=== PATIENT | male | born 1960 | race Caucasian/White ===

== ENCOUNTER → 2016-06-14 | Outpatient (CLI) | payer BC ==
[2016-06-14 14:59] LABS: CREATININE FOR GFR 1.38 MG/DL (0.70-1.30); GLOMERULAR FILTRATION RATE 56.3 (>56)
--- NOTE | 2016-06-14 17:15 | REP ---
CT ABDOMEN AND PELVIS WITH ORAL AND IV CONTRAST: TECHNIQUE: Axial contrast enhanced images from the lung bases to the pubic symphysis using 100 mL Isovue 370 intravenous contrast material with multiplanar reformations. Large calcified granuloma seen in the left lower lobe. The study is somewhat limited by patient motion. The liver, spleen, adrenals, pancreas and kidneys are grossly unremarkable. There is a small extrarenal pelvis bilaterally without overt hydronephrosis. There are mild atherosclerotic calcifications of the abdominal aorta without aneurysm. There is no adenopathy. There is no free air or free fluid. There is possible thickening of the cecum diffusely. The appendix is not inflamed. There is evidence of prior surgery in the anterior abdominal wall. Multiple metallic clips are present. There is no pelvic mass. The urinary bladder is mildly distended and grossly unremarkable. 3 mm calculus is seen in the lower pole of the right kidney. IMPRESSION: Possible diffuse thickening of the cecum. This could be inflammatory or neoplastic. Alternatively this could be a focal contraction of the colon. Further evaluation is necessary. The appendix is not inflamed. I see no adenopathy. There is no free air or free fluid. Intrarenal calculus right kidney lower pole, 3 mm in diameter. Signed by Vahid Sharma MD 06/14/2016 05:46 P
== END ==
LOC: M LAB 14:10
PROVIDERS: ATTEND Physician Assistant
DX: R10.9 Unspecified abdominal pain (principal); K57.32 Diverticulitis of large intestine without perforation or abscess without bleeding; N20.0 Calculus of kidney

== ENCOUNTER → 2016-07-08 | Outpatient (CLI) | payer BC ==
[~2016-07-08] VITALS: Ht 182.9 cm; Wt 101.6 kg
[~2016-07-08] MED LIST: AMLO5TAB2; GLYB5TA; HYDR25TA6; INVO300T; IRBE300T10; LIDOCAINE 2% INJ 100 MG/5 ML SDV (FOR ANES.) As Ordered ONE; METF850T; NS 1,000 ML IV ONE; OMEP40CA2; PROPOFOL 200 MG/20 ML VIAL As Ordered ONE
--- NOTE | 2016-07-08 09:57 | ROOR ---
Patient Name: Denny Tyson Procedure Date: 07/08/2016 9:26 AM Date of : 1960 Age: 56 Room: [facility] Gender: Male Note Status: Finalized Procedure: Colonoscopy Indications: Generalized abdominal pain Providers: Shahram Boykin Jr, MD Referring MD: Gian Staples NP Requesting Provider: Medicines: Propofol per Anesthesia Complications: No immediate complications. Procedure: Pre-Anesthesia Assessment: - Prior to the procedure, a History and Physical was performed, and patient medications and allergies were reviewed. The patient is competent. The risks and benefits of the procedure and the sedation options and risks were discussed with the patient. All questions were answered and informed consent was obtained. Patient identification and proposed procedure were verified by the physician and the nurse in the pre-procedure area and in the procedure room. Mental Status Examination: alert and oriented. Airway Examination: normal oropharyngeal airway and neck mobility. Respiratory Examination: clear to auscultation. CV Examination: normal. ASA Grade Assessment: II - A patient with mild systemic disease. After reviewing the risks and benefits, the patient was deemed in satisfactory condition to undergo the procedure. The anesthesia plan was to use moderate sedation / analgesia (conscious sedation). Immediately prior to administration of medications, the patient was re-assessed for adequacy to receive sedatives. The heart rate, respiratory rate, oxygen saturations, blood pressure, adequacy of pulmonary ventilation, and response to care were monitored throughout the procedure. The physical status of the patient was re-assessed after the procedure. The Colonoscope was introduced through the anus and advanced to the cecum, identified by appendiceal orifice and ileocecal valve. The colonoscopy was performed without difficulty. The patient tolerated the procedure well. The quality of the bowel preparation was adequate and good. Findings: The perianal and digital rectal examinations were normal. Pertinent negatives include normal sphincter tone, no palpable rectal lesions and no anal lesion or abnormality was detected. The rectum, cecum, appendiceal orifice, ileocecal valve and anastomosis appeared normal. Patchy mild inflammation characterized by erythema, friability and shallow ulcerations was found in the descending colon, in the transverse colon and in the ascending colon. Biopsies were taken with a cold forceps for histology. Impression: - The rectum, cecum, appendiceal orifice, ileocecal valve and colonic anastomosis are normal. - Patchy mild inflammation was found in the descending colon, in the transverse colon and in the ascending colon. Biopsied. Recommendation: - Discharge patient to home (ambulatory). - Return to my office in 2 weeks. Shahram Boykin MD Shahram Boykin Jr, MD 07/08/2016 9:57:23 AM This report has been signed electronically. Number of Addenda: 0 Note Initiated On: 07/08/2016 9:26 AM Estimated Blood Loss: Estimated blood loss: none.
[2016-07-08 10:15] VITALS: BP 159/87
== END | disposition home or self-care (01) ==
LOC: M OPP 08:37
PROVIDERS: ATTEND Surgery
DX: R10.84 Generalized abdominal pain (principal); K52.9 Noninfective gastroenteritis and colitis, unspecified; Z98.0 Intestinal bypass and anastomosis status; Z86.010 Personal history of colon polyps; I10 Essential (primary) hypertension; K57.92 Diverticulitis of intestine, part unspecified, without perforation or abscess without bleeding; R12 Heartburn; F41.9 Anxiety disorder, unspecified; F32.9 Major depressive disorder, single episode, unspecified; E11.40 Type 2 diabetes mellitus with diabetic neuropathy, unspecified; K21.9 Gastro-esophageal reflux disease without esophagitis; Z91.040 Latex allergy status; Z79.84 Long term (current) use of oral hypoglycemic drugs; Z79.899 Other long term (current) drug therapy; Z87.19 Personal history of other diseases of the digestive system

== ENCOUNTER → 2016-11-29 | Outpatient (CLI) | payer BC ==
[~2016-11-29] MED LIST changes: -LIDOCAINE 2% INJ 100 MG/5 ML SDV (FOR ANES.) As Ordered ONE; -METF850T; +METF850T4; -NS 1,000 ML IV ONE; -PROPOFOL 200 MG/20 ML VIAL As Ordered ONE
--- NOTE | 2016-11-30 07:35 | REP ---
Clinical: Pain. Technique: AP, lateral, bilateral oblique and sunrise views of the right knee. Findings: Cortical irregularity involving the femoral condyles as well as subtle increased sclerosis to the medial tibial plateau and joint space narrowing is appreciated. Lateral view demonstrates small suprapatellar effusion and bulky osteophyte/tendinous calcification along the inferior margin of the patella. No acute fracture dislocation. Impression: Early moderate arthritic changes to the knee. Signed by Luca Sewell MD 11/30/2016 07:26 A
== END ==
LOC: M ADAMS 11:25
PROVIDERS: ATTEND Physician Assistant
DX: M17.11 Unilateral primary osteoarthritis, right knee (principal)

== ENCOUNTER 2017-01-13 06:52 | Emergency (ER) | payer BC ==
[~2017-01-13] VITALS: Ht 182.9 cm; Wt 113.6 kg
[2017-01-13 07:42] LABS: BASO % 0.6 % (0.0-1.0); EOS # 0.2 10^3/uL (0.0-0.50); EOS % 2.7 % (0.0-3.0); IMMATURE GRANULOCYTE % 0.6 % (0-0); LYMPH # 1.2 10^3/uL (1.5-4.5); LYMPH % 17.2 % (24.0-44.0); MEAN CORPUSCULAR HEMOGLOBIN 30.7 pg (27.0-33.0); MEAN CORPUSCULAR VOLUME 90.3 fl (80.0-96.0); MONO # 0.5 10^3/uL (0.0-0.8); MONO % 6.7 % (0.0-5.0); NEUTROPHILS % 72.2 % (36.0-66.0); PLATELET COUNT, AUTOMATED 206 10^3/uL (150-450); RED CELL DISTRIBUTION WIDTH 13.5 % (11.5-14.5)
[2017-01-13] MEDS ORDERED: NS 500 ML IV ONE ×2 (07:45→08:30)
[2017-01-13 08:05] LABS: ANION GAP 8 MEQ/L (8-16); BLOOD UREA NITROGEN 23 MG/DL (7-18); CALCIUM LEVEL 8.3 MG/DL (8.5-10.1); CARBON DIOXIDE LEVEL 26 MEQ/L (21-32); CHLORIDE LEVEL 104 MEQ/L (98-107); CREATININE FOR GFR 1.18 MG/DL (0.70-1.30); FREE T4 1.08 NG/DL (0.76-1.46); GLOMERULAR FILTRATION RATE > 60.0 (>56); GLUCOSE, FASTING 183 MG/DL (70-105); POTASSIUM SERUM 3.8 MEQ/L (3.5-5.1); SODIUM LEVEL 138 MEQ/L (136-145)
[2017-01-13 09:39] LABS: FOLATE 11.8 NG/ML (>5.4); VITAMIN B12 LEVEL 761 PG/ML (247-911)
[2017-01-13 10:22] VITALS: BP 141/91
--- NOTE | 2017-01-14 09:10 | ECGEPIP ---
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
[2017-01-15 00:08] LABS: Lyme Disease IgG/IgM Antibodie <0.91 ISR (0.00-0.90); Lyme Disease IgM Ab Quantitati <0.80 index (0.00-0.79)
== END 2017-01-13 10:25 | disposition home or self-care (01) ==
LOC: M ED 06:52
DX: R53.1 Weakness (principal); R00.1 Bradycardia, unspecified; I45.10 Unspecified right bundle-branch block; E11.9 Type 2 diabetes mellitus without complications; I10 Essential (primary) hypertension; Z79.899 Other long term (current) drug therapy; Z79.84 Long term (current) use of oral hypoglycemic drugs; Z91.040 Latex allergy status

== ENCOUNTER 2017-01-30 19:46 | Emergency (ER) | payer OTHER, BC ==
[~2017-01-30] VITALS: Ht 182.9 cm; Wt 113.6 kg
[2017-01-30] MEDS ORDERED: GI COCKTAIL 50ML BTL(HYOSCYAMINE/MAALOX/LIDOCAINE VISCOUS)(1:3:1) PO ONE (20:15)
[2017-01-30] MEDS ORDERED: ASPIRIN 81 MG CHEW TABLET PO ONE (20:15)
[2017-01-30 20:50] LABS: BASO % 0.5 % (0.0-1.0); EOS # 0.2 10^3/uL (0.0-0.50); EOS % 2.7 % (0.0-3.0); IMMATURE GRANULOCYTE % 0.3 % (0-0); LYMPH # 1.8 10^3/uL (1.5-4.5); MEAN CORPUSCULAR HEMOGLOBIN 30.2 pg (27.0-33.0); MEAN CORPUSCULAR HGB CONC 33.8 g/dl (32.0-36.5); MEAN CORPUSCULAR VOLUME 89.5 fl (80.0-96.0); MONO # 0.6 10^3/uL (0.0-0.8); MONO % 7.3 % (0.0-5.0); NEUTROPHILS % 65.2 % (36.0-66.0); PLATELET COUNT, AUTOMATED 217 10^3/uL (150-450); RED CELL DISTRIBUTION WIDTH 13.2 % (11.5-14.5); WHITE BLOOD COUNT 7.7 10^3/uL (4.0-10.0)
[2017-01-30 20:55] LABS: ALBUMIN 3.3 GM/DL (3.2-5.2); ALBUMIN/GLOBULIN RATIO 1.06 (1.00-1.93); ALKALINE PHOSPHATASE 97 U/L (45-117); ALT/SGPT 24 U/L (12-78); ANION GAP 5 MEQ/L (8-16); AST/SGOT 8 U/L (7-37); BILIRUBIN,DIRECT 0.2 MG/DL (0.0-0.2); BILIRUBIN,TOTAL 0.6 MG/DL (0.2-1.0); BLOOD UREA NITROGEN 24 MG/DL (7-18); CALCIUM LEVEL 8.4 MG/DL (8.5-10.1); CARBON DIOXIDE LEVEL 30 MEQ/L (21-32); CHLORIDE LEVEL 104 MEQ/L (98-107); CREATININE FOR GFR 1.07 MG/DL (0.70-1.30); GLOMERULAR FILTRATION RATE > 60.0 (>56); GLUCOSE, FASTING 121 MG/DL (70-105); POTASSIUM SERUM 3.6 MEQ/L (3.5-5.1); SODIUM LEVEL 139 MEQ/L (136-145); TOTAL PROTEIN 6.4 GM/DL (6.4-8.2)
[2017-01-30 21:01] LABS: FREE T4 0.98 NG/DL (0.76-1.46)
[2017-01-30] MEDS ORDERED: SODIUM CHLORIDE 0.9% 1000 ML IV ONE (23:00)
[2017-01-31 00:13] LABS: CONTROL LINE MONO INT CTR LINE PRESENT
[2017-01-31 00:28] VITALS: BP 169/87
--- NOTE | 2017-01-31 02:06 | REP ---
Clinical: Chest pain . Comparison: 02/03/2016 . Technique: PA and lateral. Findings: The mediastinum and cardiac silhouette are normal. The lung hernandez are clear and without acute consolidation, effusion, or pneumothorax. The skeletal structures are intact and normal. Impression: 1. No acute cardiopulmonary process. Signed by Luca Sewell MD 01/30/2017 10:58 P
--- NOTE | 2017-02-01 08:27 | ECGEPIP ---
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
== END 2017-01-31 01:12 | disposition home or self-care (01) ==
LOC: EDBD 19:46 → EDSEX 19:46 → M ED 19:46
DX: R53.1 Weakness (principal); R07.89 Other chest pain; E11.9 Type 2 diabetes mellitus without complications; Z79.84 Long term (current) use of oral hypoglycemic drugs; Z79.899 Other long term (current) drug therapy; Z91.040 Latex allergy status; Z87.19 Personal history of other diseases of the digestive system; Z98.890 Other specified postprocedural states

== ENCOUNTER → 2017-05-10 | Outpatient (CLI) | payer OTHER | LOC: M WUC 15:05 | DX: M54.2 Cervicalgia (principal) | CPT/HCPCS: 72052 ==

== ENCOUNTER 2017-05-30 08:41 | Emergency (ER) | payer OTHER ==
[2017-05-30] MEDS: MORPHINE 10 MG/ML 1ML VIAL (J2270) IM (10:02)
[2017-05-30] MEDS: PERCOCET 5MG/325MG TAB PO (10:46)
== END 2017-05-30 11:11 | disposition home or self-care (01) ==
LOC: M ED 08:41
DX: S43.101A Unspecified dislocation of right acromioclavicular joint, initial encounter (principal); W00.0XXA Fall on same level due to ice and snow, initial encounter; Y92.59 Other trade areas as the place of occurrence of the external cause; Y99.0 Civilian activity done for income or pay; I10 Essential (primary) hypertension; E11.9 Type 2 diabetes mellitus without complications; K21.9 Gastro-esophageal reflux disease without esophagitis; G47.33 Obstructive sleep apnea (adult) (pediatric); Z79.82 Long term (current) use of aspirin
CPT/HCPCS: J2270

== ENCOUNTER → 2017-07-07 | Outpatient (REF) | payer OTHER | LOC: M LAB REF 12:02 | DX: N39.0 Urinary tract infection, site not specified (principal) ==

== ENCOUNTER → 2017-07-13 | Outpatient (REF) | payer OTHER | LOC: M LAB REF 09:01 | DX: R30.0 Dysuria (principal) ==

== ENCOUNTER → 2017-09-09 | Outpatient (REF) | payer OTHER | LOC: M SMT 13:00 | DX: N48.89 Other specified disorders of penis (principal) ==

== ENCOUNTER 2017-09-19 05:45 | Day surgery (SDC) | payer OTHER ==
[2017-09-19] MEDS ORDERED: ROPIvacaine 0.5% 30 ML INJECTION (J2795 PER 1MG) (05:46)
[2017-09-19] MEDS ORDERED: dexameTHASONE 10 MG/1 ML VIAL PRES.FREE (J1100) (05:46)
[2017-09-19 06:44] LABS: BEDSIDE GLUCOSE 230 MG/DL (70-105)
[2017-09-19] MEDS: LR 1,000 ML IV (06:46)
[2017-09-19] MEDS ORDERED: MIDAZOLAM INJ 2 MG/2 ML VIAL (J2250) As Ordered ×2 (06:57→07:20)
[2017-09-19] MEDS ORDERED: fentaNYL 100 MCG/2 ML INJECTION (J3010) As Ordered ×2 (06:57→07:20)
[2017-09-19] MEDS: fentaNYL 100 MCG/2 ML INJECTION (J3010) IV (07:02)
[2017-09-19] MEDS: MIDAZOLAM INJ 2 MG/2 ML VIAL (J2250) IV (07:03)
[2017-09-19] MEDS ORDERED: PROPOFOL 200 MG/20 ML VIAL As Ordered (07:19)
[2017-09-19] MEDS ORDERED: METOCLOPRAMIDE INJ 10MG/2ML VIAL (J2765) As Ordered (07:19)
[2017-09-19] MEDS ORDERED: LIDOCAINE 2% INJ 100 MG/5 ML SDV (FOR ANES.) As Ordered (07:19)
[2017-09-19] MEDS ORDERED: ROCURONIUM BROMIDE 50 MG/5 ML VIAL As Ordered (07:19)
[2017-09-19] MEDS: EPINEPHrine 1MG/ML INJ 30ML MD-VIAL As Ordered (08:48)
[2017-09-19] MEDS ORDERED: ONDANSETRON 4MG/2ML VIAL (J2405) As Ordered (09:32)
[2017-09-19] MEDS ORDERED: NEOSTIGMINE 10 MG/10 ML VIAL (J2710) As Ordered (09:32)
[2017-09-19] MEDS ORDERED: GLYCOPYRROLATE INJ 0.2 MG/ML 2 ML VIAL As Ordered (09:32)
[2017-09-19] MEDS: LIDOCAINE 1% MDV 20ML VIAL As Ordered (09:35)
[2017-09-19] MEDS ORDERED: fentaNYL 100 MCG/2 ML INJECTION (J3010) IV (10:15)
[2017-09-19] MEDS ORDERED: LR 1,000 ML IV ×2 (10:15)
[2017-09-19] MEDS ORDERED: PERCOCET 5MG/325MG TAB PO (10:15)
[2017-09-19] MEDS ORDERED: ONDANSETRON 4MG/2ML VIAL (J2405) IV (10:15)
[2017-09-19 10:25] LABS: BEDSIDE GLUCOSE 283 MG/DL (70-105)
[2017-09-19] MEDS ORDERED: HumaLOG INSULIN (NovoLOG) PER UNIT As Ordered (10:27)
[2017-09-19] MEDS: HumaLOG INSULIN (NovoLOG) PER UNIT SC (10:29)
[2017-09-19 11:30] LABS: BEDSIDE GLUCOSE 257 MG/DL (70-105)
== END 2017-09-19 11:53 | disposition home or self-care (01) ==
LOC: M SDC 05:45
DX: S43.101A Unspecified dislocation of right acromioclavicular joint, initial encounter (principal); M75.111 Incomplete rotator cuff tear or rupture of right shoulder, not specified as traumatic; M75.41 Impingement syndrome of right shoulder; M94.211 Chondromalacia, right shoulder; I10 Essential (primary) hypertension; E11.9 Type 2 diabetes mellitus without complications; F41.9 Anxiety disorder, unspecified; F32.9 Major depressive disorder, single episode, unspecified; K21.9 Gastro-esophageal reflux disease without esophagitis; Z79.82 Long term (current) use of aspirin; Z79.899 Other long term (current) drug therapy; Z91.040 Latex allergy status
CPT/HCPCS: 29823

== ENCOUNTER → 2017-11-30 | Outpatient (REF) | payer OTHER ==
[2017-11-30 14:10] LABS: APPEARANCE, URINE CLEAR (CLEAR); BACTERIA, URINE AUTO NEGATIVE (NEGATIVE); BILIRUBIN, URINE AUTO NEGATIVE (NEGATIVE); BLOOD, URINE BLOOD NEGATIVE (NEGATIVE); COLOR, URINE YELLOW (YELLOW); GLUCOSE, URINE (UA) AUTO 3+ mg/dL (NEGATIVE); KETONE, URINE AUTO TRACE mg/dL (NEGATIVE); LEUKOCYTE ESTERASE, URINE AUTO NEGATIVE (NEGATIVE); MUCUS, URINE SMALL (NEGATIVE); NITRITE, URINE AUTO NEGATIVE (NEGATIVE); PROTEIN, URINE AUTO NEGATIVE (NEGATIVE); RBC, URINE AUTO 2 /HPF (0-3); SPECIFIC GRAVITY URINE AUTO 1.028 (1.002-1.035); SQUAMOUS EPITHELIAL CELL UR AU 0 /HPF (0-6); UROBILINOGEN, URINE AUTO 0.2 mg/dL (0.0-2.0); WBC, URINE AUTO 2 /HPF (0-3)
== END ==
LOC: M SMT 13:10
DX: R30.0 Dysuria (principal)
CPT/HCPCS: 81001

== ENCOUNTER → 2018-05-03 | Outpatient (CLI) | payer OTHER ==
[~2018-05-03] MED LIST changes: -AMLO5TAB2; +AMLO5TAB6 PO; +ASPI1TAB PO; -GLYB5TA; +GLYB5TA PO; +HYDR25TAB PO; -IRBE300T10; +IRBE300T10 PO; +LIDOCAINE 1% MDV 20ML VIAL As Ordered ONE; +MELO15TA28 PO; -METF850T4; +METF850T4 PO; +NAPR-50 PO; -OMEP40CA2; +OMEP40CA2 PO; +PERC5TAB12 PO; +TRIAMCINOLONE ACETONIDE SUSP 40 MG/ML VIAL (J3301) As Ordered ONE
--- NOTE | 2018-05-03 17:20 | REP ---
ULTRASOUND-GUIDED RIGHT BICIPITAL INJECTION The procedure was performed under the direct supervision of Dr. Wells. The risks and benefits of the procedure were explained to the patient and informed consent was obtained. The right biceps tendon was localized using ultrasound guidance. The skin was prepped and draped in a sterile fashion. 1% lidocaine was used as a local anesthetic. Using ultrasound guidance a 22-gauge needle was inserted and advanced into the tendon sheath. 6 ml of a solution containing 5 ml of 1% lidocaine and 1 ml of Kenalog 40 mg injected. The needle was then removed. The patient tolerated the procedure well and there were no immediate complications. After the appropriate amount of monitored convalescence the patient was discharged from the department. Reviewed by SARAI Aguilera 05/03/2018 02:15 P Electronically Signed by Ethan Wells MD 05/03/2018 05:11 P
== END ==
LOC: M RADPRO 12:43
PROVIDERS: ATTEND Orthopaedic Surgery
DX: M25.511 Pain in right shoulder (principal); M75.111 Incomplete rotator cuff tear or rupture of right shoulder, not specified as traumatic
CPT/HCPCS: 20611; J3301

== ENCOUNTER 2018-06-10 15:27 | Emergency (ER) | payer BC, OTHER ==
[~2018-06-10] VITALS: Ht 182.9 cm; Wt 114.7 kg
[~2018-06-10 15:27] MED LIST changes: -ASPI1TAB PO; +ASPI81TA26 PO; -LIDOCAINE 1% MDV 20ML VIAL As Ordered ONE; -NAPR-50 PO; +NAPR-837 PO; -TRIAMCINOLONE ACETONIDE SUSP 40 MG/ML VIAL (J3301) As Ordered ONE
[2018-06-10] MEDS ORDERED: JANU50TA8 OR (15:44)
[2018-06-10] MEDS ORDERED: NS 1,000 ML IV ONE ×2 (16:00)
[2018-06-10] MEDS ORDERED: PERCOCET 5MG/325MG TAB PO ONE (16:00)
[2018-06-10] MEDS: GASTROGRAFIN SOLUTION 30ML PO SCH ×2 (16:21→16:50)
[2018-06-10 16:26] LABS: BASO # 0.1 10^3/uL (0.0-0.2); BASO % 0.6 % (0.0-1.0); EOS # 0.2 10^3/uL (0.0-0.50); EOS % 2.8 % (0.0-3.0); HEMOGLOBIN 17.8 g/dl (13.5-17.5); LYMPH # 2.2 10^3/uL (1.5-4.5); LYMPH % 25.3 % (24.0-44.0); MEAN CORPUSCULAR HEMOGLOBIN 29.8 pg (27.0-33.0); MEAN CORPUSCULAR HGB CONC 33.6 g/dl (32.0-36.5); MEAN CORPUSCULAR VOLUME 88.8 fl (80.0-96.0); MONO # 0.7 10^3/uL (0.0-0.8); MONO % 7.5 % (0.0-5.0); NEUTROPHILS # 5.5 10^3/uL (1.8-7.7); PLATELET COUNT, AUTOMATED 219 10^3/uL (150-450); RED BLOOD COUNT 5.97 10^6/uL (4.30-6.10); WHITE BLOOD COUNT 8.7 10^3/uL (4.0-10.0)
[2018-06-10 16:45] LABS: ALBUMIN 3.7 GM/DL (3.2-5.2); BILIRUBIN,DIRECT 0.1 MG/DL (0.0-0.2); BILIRUBIN,TOTAL 0.5 MG/DL (0.2-1.0); CREATININE FOR GFR 1.58 MG/DL (0.70-1.30); GLOMERULAR FILTRATION RATE 47.9 (>49); POTASSIUM SERUM 4.2 MEQ/L (3.5-5.1); TOTAL PROTEIN 7.4 GM/DL (6.4-8.2)
[2018-06-10] MEDS ORDERED: ISOVUE-370 76% 100ML VIAL (Q9967) As Ordered ONE (17:42)
[2018-06-10 18:17] VITALS: BP 143/84
--- NOTE | 2018-06-10 19:16 | REPVR ---
EXAM: CT Abdomen and Pelvis With Contrast EXAM DATE/TIME: 06/10/2018 5:52 PM CLINICAL HISTORY: 58 years old, male; Abdominal pain; Generalized; Prior surgery; Surgery date: 6+ months; Surgery type: Resection; Additional info: Generalized abd pain, HX of diverticulitis with perf/abscess TECHNIQUE: Imaging protocol: Axial computed tomography images of the abdomen and pelvis with intravenous contrast. Coronal and sagittal reformatted images were created and reviewed. Radiation optimization: All CT scans at this facility use at least one of these dose optimization techniques: automated exposure control; mA and/or kV adjustment per patient size (includes targeted exams where dose is matched to clinical indication); or iterative reconstruction. Contrast material: ISOVUE 370; Contrast volume: 100 ml; Contrast route: IV; COMPARISON: CT ABD PELVIS WITH CONTRAST 06/14/2016 4:17 PM FINDINGS: Lungs: At the posterior left lung base, a 1.4 cm calcified lung nodule is visualized, similar to the prior study. Atelectatic changes of the bilateral lung bases. ABDOMEN: Liver: No hepatic mass visualized. There is mild hypodense fatty infiltration of the liver. Gallbladder and bile ducts: Multiple gallstones are visualized. Pancreas: Unremarkable. No ductal dilation. Spleen: Unremarkable. No splenomegaly. Adrenals: Within the right adrenal gland, a nodule is identified which is fatty in density measuring 1.6 x 1.3 cm. This is consistent with a myelolipoma. Kidneys and ureters: Mild right hydronephrosis. At the lower pole the right kidney, there is a 6 mm nonobstructing calculus. No obstructive calculi are identified within the ureters bilaterally. At the lower pole the left kidney, there is a 3.2 x 2.3 cm hypodense parapelvic cyst versus dilatation of the renal collecting system. Stomach and bowel: There is an anastomosis involving the sigmoid colon. There is an ovoid focus of gas adjacent to the pancreatic head and medial to the duodenum, consistent with a duodenal diverticulum. Colonic diverticula are identified, without acute inflammatory stranding of the adjacent mesentery. Appendix: No evidence of appendicitis. PELVIS: Bladder: Unremarkable as visualized. Reproductive: The prostate is enlarged. There is mild stranding adjacent to the seminal vesicles, which may be inflammatory, but this is similar to the prior study. ABDOMEN and PELVIS: Intraperitoneal space: Surgical clips are identified within the left side of the abdomen. Bones/joints: Mild dextroscoliosis of the lumbar spine. No posterior disc protrusion is visualized at L4-5, with moderate narrowing of the thecal sac. Soft tissues: Postoperative changes are identified involving the intra-abdominal wall. Vasculature: There is atherosclerotic calcification of the abdominal aorta and iliac arteries. Lymph nodes: No enlarged lymph nodes. IMPRESSION: 1. Cholelithiasis. 2. Mild right hydronephrosis. At the lower pole the right kidney, there is a 6 mm nonobstructing calculus. No obstructive calculi are identified within the ureters bilaterally. At the lower pole the left kidney, there is a 3.2 x 2.3 cm hypodense parapelvic cyst versus dilatation of the renal collecting system. 3. There is mild hypodense fatty infiltration of the liver. 4. Within the right adrenal gland, a nodule is identified which is fatty in density measuring 1.6 x 1.3 cm. This is consistent with a myelolipoma. 5. The prostate is enlarged. There is mild stranding adjacent to the seminal vesicles, which may be inflammatory, but this is similar to the prior study. 6. A posterior disc protrusion is visualized at L4-5, with moderate narrowing of the thecal sac. 7. Diverticulosis. 8. Additional findings described above. Electronically signed by: Mahamed Ayon On 06/10/2018 19:15:53 PM
--- NOTE | 2018-06-10 20:05 | REPVR ---
EXAM: US Abdomen Limited, Right Upper Quadrant EXAM DATE/TIME: 06/10/2018 7:51 PM CLINICAL HISTORY: 58 years old, male; Abdominal pain; Epigastric; Additional info: Ruq pain; Gallstones TECHNIQUE: Imaging protocol: Real-time ultrasound of the abdomen with image documentation. Examination was focused on the right upper quadrant. COMPARISON: CT ABD/PEL W/IV ORAL CONTRAS 06/10/2018 5:44 PM FINDINGS: Liver: The liver is increased in echogenicity, most commonly due to fatty infiltration, but other chronic liver diseases may have a similar appearance. Gallbladder: Sludge and echogenic shadowing gallstones are visualized. There is no significant gallbladder wall thickening. No pericholecystic fluid. Negative sonographic Alfredo's sign. Common bile duct: The common bile duct is not visualized. Pancreas: Obscured by bowel gas. Right kidney: The right kidney measures 12.6 x 6.0 x 5.5 cm. There is mild hydronephrosis of the right kidney. There is a suggestion of a shadowing calculus at the lower pole the left kidney, although this is better visualized on CT images from the same day. IMPRESSION: 1. Sludge and echogenic shadowing gallstones are visualized. There is no significant gallbladder wall thickening. 2. There is mild hydronephrosis of the right kidney. There is a suggestion of a shadowing calculus at the lower pole the left kidney, although this is better visualized on CT images from the same day. 3. The common bile duct is not visualized. 4. The liver is increased in echogenicity, most commonly due to fatty infiltration, but other chronic liver diseases may have a similar appearance. 5. Additional findings described above. Electronically signed by: Mahamed Ayon On 06/10/2018 20:04:55 PM
[2018-06-10 20:14] LABS: BLOOD UREA NITROGEN 26 MG/DL (7-18); CALCIUM LEVEL 8.2 MG/DL (8.8-10.2); CARBON DIOXIDE LEVEL 28 MEQ/L (21-32); CHLORIDE LEVEL 104 MEQ/L (98-107); CREATININE FOR GFR 1.25 MG/DL (0.70-1.30); GLOMERULAR FILTRATION RATE > 60.0 (>49); GLUCOSE, FASTING 170 MG/DL (70-100); SODIUM LEVEL 140 MEQ/L (136-145)
[2018-06-10] MEDS ORDERED: FLOM0.4C39 PO (20:53)
--- NOTE | 2018-06-12 12:12 | ED PDOC ---
Post-Departure Follow-Up yumiko calderon faxed formal report of ct abd/p for fu Huma Clemens MD Jun 12, 2018 12:12
== END 2018-06-10 21:13 | disposition home or self-care (01) ==
LOC: M ED 15:27
DX: K80.70 Calculus of gallbladder and bile duct without cholecystitis without obstruction (principal); N20.0 Calculus of kidney; K57.90 Diverticulosis of intestine, part unspecified, without perforation or abscess without bleeding; I10 Essential (primary) hypertension; E11.9 Type 2 diabetes mellitus without complications; K21.9 Gastro-esophageal reflux disease without esophagitis; F41.9 Anxiety disorder, unspecified; G47.33 Obstructive sleep apnea (adult) (pediatric); Z79.899 Other long term (current) drug therapy; Z79.84 Long term (current) use of oral hypoglycemic drugs; Z79.82 Long term (current) use of aspirin; Z88.8 Allergy status to other drugs, medicaments and biological substances; Z91.040 Latex allergy status
CPT/HCPCS: 36415; 74177; 76705; 80048; 80076; 81001; 82150; 83605; 83690; 85025; 96360; 96361; 99284; Q9963; Q9967

== ENCOUNTER 2018-06-20 22:02 | Emergency (ER) | payer BC ==
[~2018-06-20] VITALS: Ht 182.9 cm; Wt 112.7 kg
[~2018-06-20 22:02] MED LIST changes: +FLOM0.4C39 PO; +JANU50TA8 OR
[2018-06-20] MEDS ORDERED: NORCO, ANEXSIA 5/325MG TABLET (HYDROcodone/ACETAMINOPHEN) PO ONE (22:45)
[2018-06-21] MEDS ORDERED: NORC1TAB7 PO (00:49)
--- NOTE | 2018-06-21 00:52 | REPVR ---
EXAM: CT Abdomen and Pelvis Without Contrast EXAM DATE/TIME: 06/20/2018 10:39 PM CLINICAL HISTORY: 58 years old, male; Abdominal pain; Flank; Left; Additional info: R/O ureteral calculus TECHNIQUE: Imaging protocol: Axial computed tomography images of the abdomen and pelvis without contrast. Coronal and sagittal reformatted images were created and reviewed. Radiation optimization: All CT scans at this facility use at least one of these dose optimization techniques: automated exposure control; mA and/or kV adjustment per patient size (includes targeted exams where dose is matched to clinical indication); or iterative reconstruction. COMPARISON: CT ABD/PEL W/IV ORAL CONTRAST 06/10/2018 5:44 PM FINDINGS: Limitations: Respiratory motion artifact degrades the image quality. Lungs: There is a 1.4 cm calcified granuloma in the left lower lobe, which is unchanged compared to the prior CT scan on 06/10/2018. There is atelectasis in the left lower lobe. ABDOMEN: Liver: The liver is unremarkable. No liver lesion is seen. The contour of the liver is smooth. No hepatomegaly is noted. Gallbladder and bile ducts: There are several gallstones in the gallbladder. No gallbladder wall thickening, pericholecystic fluid, or inflammatory fat stranding is noted around the gallbladder. No dilation of the bile ducts is identified. Pancreas: Unremarkable. No dilation of the main pancreatic duct is noted. Spleen: Unremarkable. No splenomegaly is noted. Adrenals: There is a 1.6 cm fat density nodule in the right adrenal gland, which is compatible with an adrenal myelolipoma, which is unchanged compared to the prior CT scan on 06/10/2018. The left adrenal gland is normal. Kidneys and ureters: There is a 6 mm calculus in the lower pole of the right kidney, which is unchanged compared to the prior CT scan on 06/10/2018. No stones are noted in the left kidney or in the ureters. There is a mildly to moderately dilated right extrarenal pelvis, which is unchanged compared to the prior CT scan on 06/10/2018. There is no hydronephrosis or hydroureter. There are bilateral renal sinus cysts, the largest measuring 3.2 cm in the inferior aspect of the left kidney, which are similar in appearance compared to the prior CT scan on 06/10/2018. Stomach and bowel: There is a diverticulum arising from the second portion of the duodenum. There is no evidence for a bowel obstruction, diverticulitis, colitis, pneumatosis intestinalis, intussusception, volvulus, or perforated viscus. An anastomotic suture line is noted at the rectosigmoid junction. Appendix: Normal. No evidence for appendicitis. PELVIS: Bladder: The partially distended urinary bladder is unremarkable. No stones or masses are seen in the bladder. Reproductive: The prostate gland is enlarged and contains calcifications. The seminal vesicles are unremarkable. ABDOMEN and PELVIS: Intraperitoneal space: There are surgical clips in the left side of the abdomen and lower abdomen. No free air or free fluid is noted. Bones/joints: The imaged bony structures are intact. There is no suspicious osteolytic or osteoblastic lesion. There are degenerative changes in the lumbar spine. There is a mild dextroscoliosis of the lumbar spine. Soft tissues: Postoperative changes are noted from a ventral hernia repair. No recurrent hernia is noted. There is a midline vertical incision scar in the anterior abdominal wall. Vasculature: The abdominal aorta is normal in caliber. There are mild atherosclerotic calcifications. Lymph nodes: No lymphadenopathy. IMPRESSION: 1. No acute findings in the abdomen or pelvis. 2. Nonobstructive right nephrolithiasis. No stones in the ureters or urinary bladder. No hydronephrosis or hydroureter. 3. Cholelithiasis. 4. Enlarged prostate gland. Electronically signed by: Daniel Winter On 06/21/2018 00:52:35 AM
[2018-06-21] MEDS ORDERED: NORCO 5/325MG TABLET (BULK FOR ED) PO ONE (01:00)
[2018-06-21 01:06] VITALS: BP 121/83
[2018-06-27] MEDS ORDERED: HYDR-3713 PO (14:33)
== END 2018-06-21 01:07 | disposition home or self-care (01) ==
LOC: M ED 22:02
DX: N21.1 Calculus in urethra (principal); I10 Essential (primary) hypertension; K21.9 Gastro-esophageal reflux disease without esophagitis; N40.0 Benign prostatic hyperplasia without lower urinary tract symptoms; N20.0 Calculus of kidney; K80.20 Calculus of gallbladder without cholecystitis without obstruction; Z79.82 Long term (current) use of aspirin; Z79.899 Other long term (current) drug therapy; Z91.89 Other specified personal risk factors, not elsewhere classified; Z91.040 Latex allergy status; Z88.8 Allergy status to other drugs, medicaments and biological substances

== ENCOUNTER → 2018-06-26 | Outpatient (CLI) | payer BC ==
[~2018-06-26] MED LIST changes: +HYDR-3713 PO; +NORC1TAB7 PO
[2018-06-26 12:51] LABS: HEMATOCRIT 50.9 % (42.0-52.0); HEMOGLOBIN 17.1 g/dl (13.5-17.5); MEAN CORPUSCULAR HEMOGLOBIN 29.5 pg (27.0-33.0); MEAN CORPUSCULAR HGB CONC 33.6 g/dl (32.0-36.5); MEAN CORPUSCULAR VOLUME 87.9 fl (80.0-96.0); PLATELET COUNT, AUTOMATED 210 10^3/uL (150-450); RED BLOOD COUNT 5.79 10^6/uL (4.30-6.10); WHITE BLOOD COUNT 8.3 10^3/uL (4.0-10.0)
[2018-06-26 13:04] LABS: INR 0.9; PARTIAL THROMBOPLASTIN TIME 25.7 SECONDS (25.4-37.6); PROTHROMBIN TIME 12.2 SECONDS (12.1-14.4)
[2018-06-26 13:13] LABS: BLOOD UREA NITROGEN 31 MG/DL (7-18); CALCIUM LEVEL 9.3 MG/DL (8.8-10.2); CARBON DIOXIDE LEVEL 30 MEQ/L (21-32); CHLORIDE LEVEL 102 MEQ/L (98-107); CREATININE FOR GFR 1.12 MG/DL (0.70-1.30); GLOMERULAR FILTRATION RATE > 60.0 (>49); GLUCOSE, FASTING 250 MG/DL (70-100); POTASSIUM SERUM 3.9 MEQ/L (3.5-5.1); SODIUM LEVEL 137 MEQ/L (136-145)
--- NOTE | 2018-06-26 18:48 | ECGEPIP ---
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
--- NOTE | 2018-06-27 01:39 | REP ---
Clinical: Preoperative assessment . Comparison: 01/30/2017 . Technique: PA and lateral. Findings: The mediastinum and cardiac silhouette are normal. Mild fibroatelectatic changes at the left base should be correlated clinically. No effusion. No pneumothorax. The skeletal structures are intact and normal. Impression: 1. Left lower lobe fibroatelectatic changes Electronically Signed by Luca Sewell MD 06/27/2018 01:30 A
== END ==
LOC: M LAB 11:52
PROVIDERS: ATTEND Nurse Practitioner Family
DX: Z01.818 Encounter for other preprocedural examination (principal); N20.0 Calculus of kidney; R91.8 Other nonspecific abnormal finding of lung field

== ENCOUNTER 2018-07-20 06:17 | Day surgery (SDC) | payer BC ==
[~2018-07-20] VITALS: Ht 185.4 cm; Wt 109.7 kg
[~2018-07-20 06:17] MED LIST changes: +LIDOCAINE 1% MDV 20ML VIAL SQ PRN
[2018-07-20] MEDS ORDERED: LR 1,000 ML IV ONE (07:00)
[2018-07-20] MEDS ORDERED: PROPOFOL 200 MG/20 ML VIAL As Ordered ONE (07:03)
[2018-07-20] MEDS ORDERED: LIDOCAINE 2% INJ 100 MG/5 ML SDV (FOR ANES.) As Ordered ONE (07:03)
[2018-07-20] MEDS ORDERED: fentaNYL 100 MCG/2 ML INJECTION (J3010) As Ordered ONE (07:04)
[2018-07-20] MEDS ORDERED: MIDAZOLAM INJ 2 MG/2 ML VIAL (J2250) As Ordered ONE (07:04)
[2018-07-20] MEDS ORDERED: ONDANSETRON 4MG/2ML VIAL (J2405) As Ordered ONE (07:04)
--- NOTE | 2018-07-20 07:04 | REP ---
Clinical: History of kidney stone. Technique: Two supine views of the abdomen and pelvis. Findings: Evaluation of the urinary tract system is severely limited due to overlying bowel gas, technique, and postsurgical changes including scattered foreign bodies related to hernia repair. No bowel obstruction. Skeletal structures demonstrate degenerative changes. Impression: Limited evaluation for urinary tract calcifications. Electronically Signed by Luca Sewell MD 07/20/2018 06:56 A
--- NOTE | 2018-07-20 08:39 | RO ---
DATE OF PROCEDURE: 07/19/2018 PREPROCEDURE DIAGNOSIS: Right kidney stone. POSTPROCEDURE DIAGNOSIS: Right kidney stone. PROCEDURE: Right extracorporeal shockwave lithotripsy. SURGEON: Dr. Johnny German HISTORIOGRAPHER: None. ANESTHESIA: Monitored anesthesia care (MAC). OPERATIVE INDICATIONS: This is a 58-year-old male who on recent imaging was found to have a 6-7 mm right lower pole kidney stone. He was brought to the operating room today for the above listed procedure. DESCRIPTION OF PROCEDURE: The patient was brought to the operating room and MAC anesthesia was administered. Prophylactic antibiotics were infused. He was then placed in the supine position in preparation for right-sided extracorporeal shockwave lithotripsy. Fluoroscopy and ultrasonography were utilized to monitor stone position and fragmentation throughout the procedure. Shockwaves were then delivered to the right-sided kidney stone ungated. There were no arrhythmias. The stone did appear to fragment well. After 2500 shocks, the procedure was concluded. The patient was then awakened from anesthesia and transferred to the recovery room in stable condition. Estimated blood loss was 0 mL. COMPLICATIONS: None. SPECIMENS: None. PLAN: The patient will followup in the clinic in a few weeks with imaging prior to assess for residual stone burden.
[2018-07-20] MEDS ORDERED: LR 1,000 ML IV SCH (08:45)
[2018-07-20] MEDS ORDERED: PERCOCET 5MG/325MG TAB PO PRN ×2 (08:45)
[2018-07-20 09:15] VITALS: BP 140/91
== END 2018-07-20 09:35 | disposition home or self-care (01) ==
LOC: M SDC 06:17
PROVIDERS: ATTEND Urology
DX: N20.0 Calculus of kidney (principal); I10 Essential (primary) hypertension; E11.40 Type 2 diabetes mellitus with diabetic neuropathy, unspecified; K57.32 Diverticulitis of large intestine without perforation or abscess without bleeding; K21.9 Gastro-esophageal reflux disease without esophagitis; M12.9 Arthropathy, unspecified; R51 Headache; Z91.040 Latex allergy status; Z91.048 Other nonmedicinal substance allergy status; Z88.8 Allergy status to other drugs, medicaments and biological substances; Z79.899 Other long term (current) drug therapy; Z79.82 Long term (current) use of aspirin; Z98.0 Intestinal bypass and anastomosis status
CPT/HCPCS: 50590; 74018; J0690; J2250; J2405; J3010

== ENCOUNTER 2018-08-02 05:51 | Day surgery (SDC) | payer OTHER ==
[~2018-08-02] VITALS: Ht 182.9 cm; Wt 110.2 kg
[~2018-08-02 05:51] MED LIST changes: -LIDOCAINE 1% MDV 20ML VIAL SQ PRN
[2018-08-02] MEDS ORDERED: dexameTHASONE 4 MG/ML 1ML VIAL (J1100) ONE (05:52)
[2018-08-02] MEDS ORDERED: ROPIvacaine 0.5% 30 ML INJECTION (J2795 PER 1MG) ONE (05:52)
[2018-08-02] MEDS ORDERED: EPINEPHrine INJ 1 MG/ML 1ML AMP ONE (05:52)
[2018-08-02] MEDS ORDERED: fentaNYL 100 MCG/2 ML INJECTION (J3010) IV SCH (06:00)
[2018-08-02] MEDS ORDERED: LIDOCAINE 1% MDV 20ML VIAL SQ PRN (06:00)
[2018-08-02] MEDS ORDERED: MIDAZOLAM INJ 2 MG/2 ML VIAL (J2250) As Ordered ONE (06:45)
[2018-08-02] MEDS ORDERED: fentaNYL 100 MCG/2 ML INJECTION (J3010) As Ordered ONE ×3 (06:45→08:44)
[2018-08-02] MEDS ORDERED: PROPOFOL 200 MG/20 ML VIAL As Ordered ONE (06:52)
[2018-08-02] MEDS ORDERED: LIDOCAINE 2% INJ 100 MG/5 ML SDV (FOR ANES.) As Ordered ONE (06:52)
[2018-08-02] MEDS ORDERED: ROCURONIUM BROMIDE 50 MG/5 ML VIAL As Ordered ONE (06:52)
[2018-08-02] MEDS ORDERED: LIDOCAINE 1% MDV 20ML VIAL As Ordered ONE (06:55)
[2018-08-02] MEDS ORDERED: dexameTHASONE 4 MG/ML 1ML VIAL (J1100) As Ordered ONE (06:56)
[2018-08-02] MEDS ORDERED: ONDANSETRON 4MG/2ML VIAL (J2405) As Ordered ONE ×2 (06:56→10:06)
[2018-08-02] MEDS ORDERED: EPINEPHrine INJ 1 MG/ML 1ML AMP As Ordered ONE (06:56)
[2018-08-02] MEDS ORDERED: LR 1,000 ML IV ONE (07:00)
[2018-08-02] MEDS ORDERED: MIDAZOLAM INJ 2 MG/2 ML VIAL (J2250) IV ONE (08:15)
[2018-08-02] MEDS ORDERED: ePHEDrine SULFATE 25 MG/5 ML(5MG/ML) SYRINGE As Ordered ONE ×2 (08:19→09:11)
[2018-08-02] MEDS ORDERED: PHENYLephrine HCL 500 MCG/5 ML (100MCG/ML) SYRINGE (J2370) As Ordered ONE (08:29)
[2018-08-02] MEDS ORDERED: SUGAMMADEX SODIUM 500 MG/5 ML VIAL (BRIDION) As Ordered ONE (08:50)
[2018-08-02] MEDS ORDERED: PERCOCET 5MG/325MG TAB As Ordered ONE (10:06)
[2018-08-02] MEDS: PERCOCET 5MG/325MG TAB PO PRN ×2 (10:14→10:51)
[2018-08-02] MEDS ORDERED: ONDANSETRON 4MG/2ML VIAL (J2405) IV PRN (10:30)
[2018-08-02] MEDS ORDERED: METOCLOPRAMIDE INJ 10MG/2ML VIAL (J2765) IV PRN (10:30)
[2018-08-02] MEDS ORDERED: fentaNYL 100 MCG/2 ML INJECTION (J3010) IV PRN (10:30)
[2018-08-02] MEDS ORDERED: LR 1,000 ML IV SCH ×2 (10:30)
[2018-08-02 11:30] VITALS: BP 131/71
--- NOTE | 2018-08-03 11:54 | RO ---
DATE OF SURGERY: 08/02/2018 PREOPERATIVE DIAGNOSES: 1. Right shoulder arthrofibrosis. 2. Right shoulder long head biceps tendonitis. 3. Right shoulder impingement. 4. Right shoulder partial thickness rotator cuff tear. POSTOPERATIVE DIAGNOSES: 1. Right shoulder arthrofibrosis. 2. Right shoulder long head biceps tendonitis. 3. Right shoulder impingement. 4. Right shoulder partial thickness rotator cuff tear. PROCEDURES: 1. Right shoulder manipulation under anesthesia. 2. Right shoulder arthroscopic lysis of adhesions with rotator interval release. 3. Right shoulder arthroscopic subacromial decompression and rotator cuff debridement. 4. Right shoulder open subpectoral biceps tenodesis. SURGEON: Olivier Dye MD DUTY OFFICER: Prudencio Callaway PA-C ANESTHESIA: General with preoperative block. INTRAVENOUS (IV) FLUIDS: Lactated Ringer. ESTIMATED BLOOD LOSS: 10 mL. IMPLANTS: Arthrex proximal biceps button times one. CLOSURE: Monocryl and nylon. DESCRIPTION OF PROCEDURE: The patient identified in preoperative holding area. The right shoulder marked by me. He had an interscalene nerve block by anesthesia. He was brought to the operating room, placed supine on a well-padded operating room (OR) table. General anesthesia induced. Time-out was then performed per hospital protocol. Examination under anesthesia revealed 130 degrees of forward flexion, 60 of external rotation, and 30 of internal rotation. I then performed a manipulation under anesthesia with passive forward flexion of the shoulder, and two small audible pops occurred. The patient now had 160 degrees of forward flexion. The patient was then placed into the [id number] lateral decubitus position with an axillary roll, and all bony prominences were well padded. Bilateral Venodyne boots for deep venous thrombosis (DVT) prophylaxis. The right arm was placed in the Arthrex STaR (Shoulder Traction and Rotation) Sleeve lateral decubitus traction colmenares with 10 pounds of traction. The right shoulder was then prepped and draped in normal sterile fashion with Chloraprep. He received appropriate IV antibiotics within 1 hour of incision. Prior to incision, a time-out was performed again per hospital protocol. The right shoulder was insufflated with lactated Ringer. Standard posterior viewing portal made with an 11 blade. 3-degree arthroscope introduced into the joint. Diagnostic arthroscopy revealed no tearing of the articular surface of the rotator cuff. Grade 1 chondromalacia of the humeral head. The glenoid was in good condition. The rotator interval was filled in with scar tissue. The subscapularis was poorly visualized. The long head of the biceps tendon had hyperemia, and it appeared hypertrophied at its attachment to the superior labrum. An anterior working portal was established through the rotator interval; and on probing of the long head of the biceps tendon, there was actually a longitudinal split-type tear with partial thickness. Superior labrum itself was not torn. I then performed a tenotomy of the biceps tendon with a meniscal punch. Shaver used to remove tendon fragments. Next, the radiofrequency cautery was used to perform a rotator interval release. The meniscal punch was used to remove about a third of the upper border of the middle glenohumeral ligament. The subscapularis appeared in excellent condition and no liftoff with posterior lever push maneuver. The arthroscope was placed in the anterior portal and then through the posterior portal. A meniscal punch and cautery used to perform a posterior capsular release. I then proceeded with an open subpectoral biceps tenodesis. Incision with a 15 blade just lateral to the axilla and dissection down to the biceps fascia which was opened with Metzenbaum scissors. The long head of the biceps tendon was identified and dissected out with a right-angle clamp. The tendon was retrieved uneventfully. The Arthrex proximal biceps kit was then used to place a running locking whipstitch through the tendon and the sutures loaded through the button per routine. Excess tendon trimmed and discarded. On gross inspection of the tendon again, a moderate grade partial longitudinal split tear. The spade-tip drill bit was then used to create a unicortical socket within the bicipital groove. Irrigation used to remove bony debris. The button was then placed through the drill hole on the irs agent. Sutures were toggled to flip the button, and the tendon was docked nicely along the bicipital groove. Curved free needle used to pass one limb of suture back through the tendon, and knots were tied by hand to lock the construct in place. This nicely restored the resting tension. Incision was re-irrigated and then closed the layered fashion with 2-0 Vicryl and a running Monocryl. The arthroscope was then placed in the subacromial space. Lateral working portal established, and moderate scar tissue was encountered from the first surgery. A bursectomy with the cautery and shaver. Now, there was still a component of a subacromial spur, so the bur was used to perform an acromioplasty. There was fraying of the bursal surface of the supraspinatus. This was gently debrided with the shaver. I then palpated the remaining tendon with a switching stick. There were no moderate or high-grade tears. This was low-grade fraying, likely between 10% and 20%. Attention was then turned to the acromioclavicular (AC) joint, and there was about 5 mm of anterior to posterior instability of the distal clavicle with pressure. There was no superior displacement. Cautery was used to clear out all scar tissue from the AC joint, and there was no residual impingement there. The shoulder was then irrigated and drained. Portals closed with nylon suture. Bulky sterile dressing applied. He was placed into a sling. Mat was present for the entire procedure and participated all essential portions of the procedure. This included patient positioning and draping, holding the arthroscope, assisting with the whipstitch of the biceps, and holding retractors, and performing the wound closure. COMPLICATIONS: None. DISPOSITION: The patient extubated, transferred to the postanesthesia care unit (PACU) in stable condition. He will start physical therapy within 5 days and will start pendulums postoperative day #1. He will be at 100% temporary partial disability for Workers' Compensation.
== END 2018-08-02 12:03 | disposition home or self-care (01) ==
LOC: M SDC 05:51
PROVIDERS: ATTEND Orthopaedic Surgery
DX: M24.611 Ankylosis, right shoulder (principal); M75.21 Bicipital tendinitis, right shoulder; M75.41 Impingement syndrome of right shoulder; M75.111 Incomplete rotator cuff tear or rupture of right shoulder, not specified as traumatic; I10 Essential (primary) hypertension; K21.9 Gastro-esophageal reflux disease without esophagitis; E11.9 Type 2 diabetes mellitus without complications; F41.9 Anxiety disorder, unspecified; F32.9 Major depressive disorder, single episode, unspecified; Z79.82 Long term (current) use of aspirin; Z79.84 Long term (current) use of oral hypoglycemic drugs; Z79.899 Other long term (current) drug therapy
CPT/HCPCS: 23430; 29823; 29825; 29826; 88304; C1713; J0690; J1100; J2250; J2370; J2405; J2795; J3010

== ENCOUNTER → 2018-08-10 | Outpatient (CLI) | payer OTHER ==
--- NOTE | 2018-08-10 09:21 | REP ---
Clinical: Kidney stone. Technique: Two supine views of the abdomen and pelvis. Findings: Evaluation is significantly limited due to bowel gas pattern, technique and overlying surgical material. Small bilateral intrarenal calculi cannot be excluded. Bowel gas pattern is nonspecific. Skeletal structures demonstrate degenerative changes. Phleboliths noted in the pelvis. Impression: Limited evaluation for urinary tract calcifications. Electronically Signed by Luca Sewell MD 08/10/2018 09:13 A
== END ==
LOC: M SMT 08:02
PROVIDERS: ATTEND Nurse Practitioner Family
DX: R93.41 Abnormal radiologic findings on diagnostic imaging of renal pelvis, ureter, or bladder (principal)

== ENCOUNTER → 2018-08-10 | Outpatient (REF) | payer OTHER, BC ==
[2018-08-16 14:34] LABS: COMMENT Comment: (.); COMMENT Note: (.); Uric Acid 100 % (.)
== END ==
LOC: M SMT 13:08
PROVIDERS: ATTEND Nurse Practitioner Family
DX: N20.0 Calculus of kidney (principal)

== ENCOUNTER → 2018-08-25 | Outpatient (CLI) | payer BC ==
--- NOTE | 2018-08-25 12:14 | REP ---
RIGHT LOWER QUADRANT ULTRASOUND: Real-time sonographic evaluation of the right lower quadrant performed. The appendix could not be visualized. I cannot exclude appendicitis. No free fluid or fluid collection is visualized sonographically. IMPRESSION: The appendix cannot be visualized. I cannot exclude appendicitis. Electronically Signed by Vahid Sharma MD 08/28/2018 12:58 P
== END ==
LOC: M RAD 10:53
PROVIDERS: ATTEND Physician Assistant Medical
DX: R10.9 Unspecified abdominal pain (principal)

== ENCOUNTER → 2018-08-25 | Outpatient (REF) | payer BC | LOC: M LAB REF 12:18 | PROVIDERS: ATTEND Physician Assistant Medical | DX: R10.9 Unspecified abdominal pain (principal) ==

== ENCOUNTER → 2018-08-25 | Outpatient (REF) | payer BC ==
[2018-08-25 12:42] LABS: BASO # 0.1 10^3/uL (0.0-0.2); BASO % 0.5 % (0.0-1.0); EOS # 0.2 10^3/uL (0.0-0.50); EOS % 1.9 % (0.0-3.0); HEMATOCRIT 50.1 % (42.0-52.0); HEMOGLOBIN 16.7 g/dl (13.5-17.5); LYMPH # 1.2 10^3/uL (1.5-4.5); LYMPH % 11.8 % (24.0-44.0); MEAN CORPUSCULAR HEMOGLOBIN 30.1 pg (27.0-33.0); MEAN CORPUSCULAR HGB CONC 33.3 g/dl (32.0-36.5); MEAN CORPUSCULAR VOLUME 90.4 fl (80.0-96.0); MONO # 0.7 10^3/uL (0.0-0.8); MONO % 6.6 % (0.0-5.0); NEUTROPHILS # 8.1 10^3/uL (1.8-7.7); NEUTROPHILS % 78.2 % (36.0-66.0); PLATELET COUNT, AUTOMATED 234 10^3/uL (150-450); RED BLOOD COUNT 5.54 10^6/uL (4.30-6.10); WHITE BLOOD COUNT 10.3 10^3/uL (4.0-10.0)
[2018-08-25 12:46] LABS: BILIRUBIN,TOTAL 0.8 MG/DL (0.2-1.0); CALCIUM LEVEL 9.1 MG/DL (8.8-10.2); CREATININE FOR GFR 1.86 MG/DL (0.70-1.30); GLOMERULAR FILTRATION RATE 39.6 (>49); POTASSIUM SERUM 4.3 MEQ/L (3.5-5.1); TOTAL PROTEIN 7.3 GM/DL (6.4-8.2)
== END ==
LOC: M LABDRWAD 12:06
PROVIDERS: ATTEND Physician Assistant Medical
DX: R10.9 Unspecified abdominal pain (principal)

== ENCOUNTER 2018-09-07 08:26 | Emergency (ER) | payer BC ==
[~2018-09-07] VITALS: Ht 182.9 cm; Wt 113.7 kg
[~2018-09-07 08:26] MED LIST changes: -JANU50TA8 OR; +JANU50TA8 PO
[2018-09-07] MEDS ORDERED: OXYC-517 PO (08:31)
[2018-09-07] MEDS ORDERED: IBUP-1022 PO (08:31)
[2018-09-07] MEDS ORDERED: NS 1,000 ML IV ONE (08:45)
[2018-09-07 09:17] LABS: BASO % 0.5 % (0.0-1.0); EOS # 0.3 10^3/uL (0.0-0.50); EOS % 3.6 % (0.0-3.0); HEMATOCRIT 47.4 % (42.0-52.0); HEMOGLOBIN 16.3 g/dl (13.5-17.5); LYMPH # 1.6 10^3/uL (1.5-4.5); LYMPH % 20.7 % (24.0-44.0); MEAN CORPUSCULAR HEMOGLOBIN 31.4 pg (27.0-33.0); MEAN CORPUSCULAR HGB CONC 34.4 g/dl (32.0-36.5); MEAN CORPUSCULAR VOLUME 91.3 fl (80.0-96.0); MONO # 0.6 10^3/uL (0.0-0.8); MONO % 8.2 % (0.0-5.0); NEUTROPHILS % 65.9 % (36.0-66.0); PLATELET COUNT, AUTOMATED 190 10^3/uL (150-450); RED BLOOD COUNT 5.19 10^6/uL (4.30-6.10); WHITE BLOOD COUNT 7.5 10^3/uL (4.0-10.0)
[2018-09-07 09:28] LABS: APPEARANCE, URINE CLEAR (CLEAR); BACTERIA, URINE AUTO NEGATIVE (NEGATIVE); BILIRUBIN, URINE AUTO NEGATIVE (NEGATIVE); BLOOD, URINE BLOOD NEGATIVE (NEGATIVE); COLOR, URINE STRAW (YELLOW); GLUCOSE, URINE (UA) AUTO 3+ mg/dL (NEGATIVE); KETONE, URINE AUTO NEGATIVE (NEGATIVE); LEUKOCYTE ESTERASE, URINE AUTO NEGATIVE (NEGATIVE); MUCUS, URINE SMALL (NEGATIVE); NITRITE, URINE AUTO NEGATIVE (NEGATIVE); PROTEIN, URINE AUTO NEGATIVE (NEGATIVE); RBC, URINE AUTO 2 /HPF (0-3); SPECIFIC GRAVITY URINE AUTO 1.024 (1.002-1.035); SQUAMOUS EPITHELIAL CELL UR AU 0 /HPF (0-6); UROBILINOGEN, URINE AUTO 0.2 mg/dL (0.0-2.0); WBC, URINE AUTO 0 /HPF (0-3)
[2018-09-07] MEDS ORDERED: KETOROLAC 30 MG/ML VIAL (J1885) IV ONE (10:00)
[2018-09-07 10:15] LABS: CALCIUM LEVEL 8.6 MG/DL (8.8-10.2); CREATININE FOR GFR 1.89 MG/DL (0.70-1.30); GLOMERULAR FILTRATION RATE 38.9 (>49); POTASSIUM SERUM 4.1 MEQ/L (3.5-5.1)
--- NOTE | 2018-09-07 10:53 | REP ---
CT ABDOMEN AND PELVIS WITHOUT IV CONTRAST: CT abdomen and pelvis performed without oral or IV contrast. Sagittal and coronal reconstruction images are performed. Comparison made with prior study of 06/20/2018. Visualized lung bases demonstrate mild bibasilar fibroatelectatic change with a large calcified granuloma in the left lower lobe posteriorly. The liver is grossly unremarkable. Multiple gallstones are seen in a contracted gallbladder without wall thickening or edema. The spleen is normal in size with no gross abnormality. Adrenals and pancreas are grossly unremarkable. There is mild right hydroureteronephrosis caused by one or two punctate calculi in the distal right ureter. A few intrarenal calculi are seen in the mid to lower right kidney with one subcentimeter calculus in the right renal pelvis. No intrarenal calculi are seen on the left. There is no left hydroureteronephrosis. There appear to be small peripelvic cysts on the left. The abdominal aorta demonstrates mild atherosclerotic calcification. There is no adenopathy. There is no free air or free fluid. There is no appendicitis. There is no bowel wall thickening. Multiple metallic clips are seen in the abdominal wall. The prostate is somewhat enlarged. No calculus is seen in the bladder. There are degenerative changes of the spine. IMPRESSION: One or two punctate calculi in the distal right ureter cause mild right hydroureteronephrosis. There are a few right intrarenal calculi. There are no other acute findings. The gallbladder demonstrates multiple stones with contracted appearance and no pericholecystic fluid or edema. There is no appendicitis. Electronically Signed by Vahid Sharma MD 09/07/2018 12:44 P
[2018-09-07] MEDS ORDERED: FLOM0.4C39 PO (11:18)
[2018-09-07 11:28] VITALS: BP 152/84
== END 2018-09-07 11:30 | disposition home or self-care (01) ==
LOC: M ED 08:26
DX: N20.1 Calculus of ureter (principal); N13.39 Other hydronephrosis; K21.9 Gastro-esophageal reflux disease without esophagitis; Z87.442 Personal history of urinary calculi; Z91.040 Latex allergy status; Z88.1 Allergy status to other antibiotic agents; Z91.048 Other nonmedicinal substance allergy status; Z79.899 Other long term (current) drug therapy
CPT/HCPCS: 36415; 74176; 80048; 81001; 85025; 96374; 99284; J1885

== ENCOUNTER 2018-09-09 00:18 | Inpatient (IN) | payer BC ==
[2018-09-09] VITALS (10 sets, daily range): BP systolic 120–147; BP diastolic 66–86
[~2018-09-09] VITALS: Ht 182.9 cm; Wt 114.0 kg
[~2018-09-09 00:18] MED LIST changes: +IBUP-1022 PO; +OXYC-517 PO
[2018-09-09 01:20] LABS: BASO % 0.4 % (0.0-1.0); EOS # 0.2 10^3/uL (0.0-0.50); EOS % 2.1 % (0.0-3.0); HEMATOCRIT 40.6 % (42.0-52.0); LYMPH # 1.5 10^3/uL (1.5-4.5); LYMPH % 19.3 % (24.0-44.0); MEAN CORPUSCULAR HEMOGLOBIN 30.7 pg (27.0-33.0); MEAN CORPUSCULAR HGB CONC 34.2 g/dl (32.0-36.5); MEAN CORPUSCULAR VOLUME 89.6 fl (80.0-96.0); MONO # 0.9 10^3/uL (0.0-0.8); NEUTROPHILS # 5.1 10^3/uL (1.8-7.7); NEUTROPHILS % 66.6 % (36.0-66.0); PLATELET COUNT, AUTOMATED 154 10^3/uL (150-450); RED BLOOD COUNT 4.53 10^6/uL (4.30-6.10); WHITE BLOOD COUNT 7.7 10^3/uL (4.0-10.0)
[2018-09-09 01:28] LABS: HEMOGLOBIN 13.9 g/dl (13.5-17.5)
[2018-09-09] MEDS ORDERED: ONDANSETRON 4MG/2ML VIAL (J2405) IV ONE (01:45)
[2018-09-09] MEDS ORDERED: KETOROLAC 30 MG/ML VIAL (J1885) IV ONE (01:45)
[2018-09-09] MEDS ORDERED: NS 1,000 ML IV ONE (01:45)
[2018-09-09 01:53] LABS: ALBUMIN 3.5 GM/DL (3.2-5.2); BILIRUBIN,DIRECT 0.2 MG/DL (0.0-0.2); BILIRUBIN,TOTAL 0.5 MG/DL (0.2-1.0); CALCIUM LEVEL 8.1 MG/DL (8.8-10.2); CREATININE FOR GFR 2.26 MG/DL (0.70-1.30); GLOMERULAR FILTRATION RATE 31.7 (>49); TOTAL PROTEIN 6.3 GM/DL (6.4-8.2)
--- NOTE | 2018-09-09 02:05 | REPVR ---
EXAM: CT Abdomen and Pelvis Without Contrast EXAM DATE/TIME: 09/09/2018 12:59 AM CLINICAL HISTORY: 58 years old, male; Abdominal pain; Flank; Right; Additional info: Right flank pain TECHNIQUE: Imaging protocol: Axial computed tomography images of the abdomen and pelvis without contrast. Coronal and sagittal reformatted images were created and reviewed. Radiation optimization: All CT scans at this facility use at least one of these dose optimization techniques: automated exposure control; mA and/or kV adjustment per patient size (includes targeted exams where dose is matched to clinical indication); or iterative reconstruction. COMPARISON: CT ABD PELVIS W/O CONTRAST 09/07/2018 9:42 AM FINDINGS: Lungs: Mild bibasilar interstitial prominence with minimal fibro-atelectatic change. Large calcified granuloma in the left lower lobe. Liver: Normal. No mass. Gallbladder and bile ducts: There are multiple gallstones in the gallbladder. Pancreas: Pancreatic calcifications. Spleen: Normal. No splenomegaly. Adrenals: Macroscopic fatty nodule in the right adrenal measuring up to 16 mm. Kidneys and ureters: Nonobstructing right renal calculi. Left renal peripelvic cysts in the lower pole. Right perinephric induration with moderate right hydronephrosis and mild right hydroureter with periureteral edema which extends to a segment of multiple distal right ureteral calculi extending to the right UVJ consistent with steinstrasse extending over a nearly 2 cm segment. Stomach and bowel: Mid sigmoid anastomosis consistent with partial resection. Appendix: A normal appendix is seen with some dense luminal material. Intraperitoneal space: Normal. No free air. No significant fluid collection. Vasculature: Normal. No abdominal aortic aneurysm. Lymph nodes: Normal. No enlarged lymph nodes. Bladder: Unremarkable as visualized. Reproductive: There is mild prostatic enlargement. Bones/joints: Degenerative disc changes and facet arthropathy from L3-L5. Soft tissues: Status post ventral wall hernia repair. IMPRESSION: 1. Right obstructive uropathy extending to a collection of multiple distal right ureteral calculi over a nearly 2 cm segment to the right UVJ consistent with steinstrasse, new or increased since 09/07/2018 and may reflect interval lithotripsy. 2. Nonobstructing right renal calculi. 3. Probable left lower pole renal peripelvic cysts. 4. Mild bibasilar interstitial prominence with minimal fibro-atelectatic change and large calcified granuloma in the left lower lobe. 5. Cholelithiasis. 6. Pancreatic calcifications suggesting residua of previous pancreatitis. 7. Mild prostatic enlargement. COMMENT: Consistent with the [employer]'s Incidental Findings Committee Report (J Am Jose E Radiol 2010): Unless the patient's specific circumstances suggest otherwise, any liver lesion 0.5 cm or less, any cystic kidney lesion less than 1.0 cm, and/or any adrenal lesion 1.0 cm or less not otherwise characterized in this report as possessing suspicious or indeterminate imaging features is/are highly likely to be benign and do not require follow-up imaging or biopsy. Electronically signed by: Ivan Hein On 09/09/2018 02:05:36 AM
[2018-09-09] MEDS ORDERED: FLOM0.4C39 PO (02:28)
[2018-09-09] MEDS ORDERED: HYDR50TAB PO (02:38)
[2018-09-09] MEDS ORDERED: GLUCAGON FOR INJ 1 MG VIAL (J1610) SC PRN (03:00)
[2018-09-09] MEDS ORDERED: NS 1,000 ML IV SCH (03:00)
[2018-09-09] MEDS ORDERED: GLUCOSE 4 GM CHEW TABLET PO PRN (03:00)
[2018-09-09] MEDS ORDERED: DEXTROSE 50% 50 ML SYRINGE IV PRN (03:00)
--- NOTE | 2018-09-09 03:00 | HPEPDOC ---
General Date of Admission 09/09/18 Date of Service: Sep 09, 2018 Attending Physician: SASHA TRAYLOR MD Chief Complaint The patient is a 58-year-old male admitted with a reason for visit of Flank Pain . Source: Patient, Family Exam Limitations: No limitations Timing/Duration: Day(s) Severity: Severe (several days) Associated Symptoms: Nausea History of Present Illness 4 years old white male with past medical history of diabetes mellitus, hypertension, GERD, presented with chief complaints of right flank pain, right lower abdominal pain. Patient has been complaining of similar symptoms in the last several weeks and came to ED on , but for discharge home after workup was negative. Patient came back again with complaining of severe right- sided pain, right flank and right lower abdomen radiating towards his back is sharp in nature, associated with the nausea not relieved with medication and not exacerbated by dietary intake of any position. Associated with with fever, vomiting or diarrhea. On CT abdomen. Patient was found to have an obstructive ur opathy with worsening renal function and we were called into it. Advised to admit patient as patient will be seen by urology and taken to the OR in the morning. Patient offers no new other complaints such as chest pain, shortness of breath, etc. Home Medications Scheduled Amlodipine Besylate (Amlodipine Besylate) 5 Mg Tab, 5 MG PO DAILY, (Reported) Glyburide (Glyburide) 5 Mg Tab, 10 MG PO BID, (Reported) Hydrochlorothiazide (Hydrochlorothiazide) 50 Mg Tablet, 50 MG PO DAILY, ( Reported) Irbesartan (Irbesartan) 300 Mg Tab, 300 MG PO DAILY, (Reported) Omeprazole (Omeprazole) 40 Mg Cap, 40 MG PO DAILY, (Reported) Sitagliptin Phos/Metformin HCl (Janumet 50-1,000 mg Tablet) 1 Each Tablet, 1 TAB PO BID, (Reported) Tamsulosin HCl (Flomax) 0.4 Mg Capsule, 0.4 MG PO DAILY, (Reported) Scheduled PRN Ibuprofen (Ibuprofen) 600 Mg Tablet, 600 MG PO TID PRN for PAIN, (Reported) Oxycodone HCl (Oxycodone HCl) 5 Mg Tablet, 5 MG PO Q4H PRN for PAIN, (Reported) Allergies Coded Allergies: adhesive (Verified Allergy, Intermediate, rash and blisters ie bandaids tape, 07/20/18) canagliflozin (Verified Allergy, Intermediate, rash, 07/20/18) latex (Verified Adverse Reaction, Mild, sensitivity, 07/20/18) Past Medical History Medical History Diabetes mellitus, hypertension, GERD Surgical History 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 2. Shoulder surgery Family History Father had a diabetes mellitus, multiple onset diabetes mellitus and brother had testicular carcinoma Social History * Smoker: Denies Alcohol: Denies Drugs: denies A-FIB/CHADSVASC A-FIB History Current/History of A-Fib/PAF?: No Review of Systems Constitutional: Denies: Chills, Fever, Malaise, Night Sweats, Weakness, Fatigue, Weight Loss, Lethargy, Other Eyes: Denies: Pain, Vision change, Conjunctivae inflammation, Eyelid inflammation, Redness, Other ENT: Denies: Head Aches, Ear Pain, Dysphagia, Sinus Congestion, Post Nasal Drip, Sore Throat, Epistaxis, Other Symptoms Skin: Denies: Rash, Lesions, Jaundice, Bruising, Itching, Dry, Breakdown, Nail Changes, Other Pulmonary: Denies: Dyspnea, Cough, Pleuritic Chest Pain, Other Symptoms Cardiovascular: Denies: Chest Pain, Palpitations, Orthopnea, Paroxysmal Noc. Dyspnea, Edema, Lt Headedness, Other Symptoms Gastrointestinal: Reports: Nausea, Abdominal Pain Genitourinary: Denies: Dysuria, Frequency, Incontinence, Hematuria, Retention, Other Symptoms Hematologic: Denies: Bruising, Bleeding Excessively, Petecchia, Purpura, Enlarged Lymph Nodes, Other Hematologic Endocrine: Denies: Polydipsia, Polyphagia, Polyuria, Heat Intolerance, Cold Intolerance, Other Endocrine Sx Musculoskeletal: Denies: Neck Pain, Back Pain, Shoulder Pain, Arm Pain, Hand Pain, Leg Pain, Foot Pain, Joint Pain, Muscle Pain, Spasms, Other Symptoms Neurological: Denies: Weakness, Numbness, Incoordination, Change in speech, Confusion, Seizures, Other Symptoms Psych: Denies: Mood Normal, Anxiety, Depression, Memory Issues, Thoughts of Self Harm, Anger, Thoughts of Harming Other, Other Psych Physical Examination General Exam: Positive: Alert, Cooperative Eye Exam: Positive: PERRLA, Conjunctiva & lids normal ENT Exam: Positive: Atraumatic, Mucous membr. moist/pink Neck Exam: Positive: Supple Chest Exam: Positive: Clear to auscultation, Normal air movement Heart Exam: Positive: Rate Normal, Normal S1, Normal S2 Abdomen Exam: Positive: Tenderness (. Positive at right lower quadrant on deep palpation of his patches. Also positive) Extremity Exam: Positive: Normal pulses Skin Exam: Positive: Nl turgor and temperature Neuro Exam: Positive: Strength at 5/5 X4 ext, Sensation Intact Psych Exam: Positive: Mental status NL, Mood NL, Oriented x 3 Vital Signs Vital Signs Date Time Temp Pulse Resp B/P (MAP) Pulse Ox O2 Delivery O2 Flow Rate FiO2 09/09/18 01:14 09/09/18 00:18 98.0 76 18 95 Room Air Laboratory Data Labs 24H Laboratory Tests 2 09/09/18 01:07: Urine Color YELLOW, Urine Appearance CLEAR, Urine pH 5.0, Urine Specific [place] 1.021, Urine Protein NEGATIVE, Urine Glucose (UA) 3+H, Urine Ketones NEGATIVE, Urine Blood NEGATIVE, Urine Nitrite NEGATIVE, Urine Bilirubin NEGATIVE, Urine Urobilinogen 0.2, Urine Leukocyte Esterase NEGATIVE, Urine WBC (Auto) 1, Urine RBC (Auto) 1, Urine Hyaline Casts (Auto) 0, Urine Bacteria (Auto) NEGATIVE, Urine Squamous Epithelial Cells 0, Urine Sperm (Auto) 09/09/18 01:08: Immature Granulocyte % (Auto) 0.6, White Blood Count 7.7, Red Blood Count 4.53, Hemoglobin 13.9#, Hematocrit 40.6L, Mean Corpuscular Volume 89.6, Mean Corpuscular Hemoglobin 30.7, Mean Corpuscular Hemoglobin Concent 34.2, Red Cell Distribution Width 13.4, Platelet Count 154, Neutrophils (%) (Auto) 66.6H, Lymphocytes (%) (Auto) 19.3L, Monocytes (%) (Auto) 11.0H, Eosinophils (%) (Auto) 2.1, Basophils (%) (Auto) 0.4, Neutrophils # (Auto) 5.1, Lymphocytes # (Auto) 1.5, Monocytes # (Auto) 0.9H, Eosinophils # (Auto) 0.2, Basophils # (Auto) 0.0, Nucleated Red Blood Cells % (auto) 0.0, Anion Gap 7L, Glomerular Filtration Rate 31.7L, Calcium Level 8.1L, Aspartate Amino Transf (AST/SGOT) 18, Alanine Hendricks otransferase (ALT/SGPT) 66, Alkaline Phosphatase 83, Total Bilirubin 0.5, Direct Bilirubin 0.2, Total Protein 6.3L, Albumin 3.5, Albumin/Globulin Ratio 1.25, Lipase 157 CBC/BMP Laboratory Tests 09/09/18 01:08 Red Blood Count 4.53, Mean Corpuscular Volume 89.6, Mean Corpuscular Hemoglobin 30.7, Mean Corpuscular Hemoglobin Concent 34.2, Red Cell Distribution Width 13.4, Neutrophils (%) (Auto) 66.6 H, Lymphocytes (%) (Auto) 19.3 L, Monocytes (%) (Auto) 11.0 H, Eosinophils (%) (Auto) 2.1, Basophils (%) (Auto) 0.4, Neutrophils # (Auto) 5.1, Lymphocytes # (Auto) 1.5, Monocytes # (Auto) 0.9 H, Eosinophils # (Auto) 0.2, Basophils # (Auto) 0.0 Problems (1) Obstructive uropathy Status: Acute Problem Text: 58 years old white male admitted with the diagnosis of obstructive uropathy secondary to multiple kidney stones with worsening renal function Admit patient to medical floor IV fluids normal saline 70 mL per hour Pain management with morphine sulfate 4 mg IV every 4 hours when necessary Zofran 4 mg IV every 4 hours when necessary for nausea, vomiting Nothing by mouth . She will be seen by Dr. Lazo in the morning and possibly taken to the OR for retrieval of urinary stones DVT prophylaxis with bilateral SCDs Other as per Dr. Lazo's recommendation (2) Diabetes mellitus Status: Chronic Problem Text: Hold all patient's by mouth meds FSBS blood sugar every 6 hours Coverage with regular insulin Restart by mouth meds once patient is taken meals orally (3) HTN (hypertension) Status: Chronic Problem Text: Hold all by mouth meds Will closely monitor his heart rate and blood pressure And treat accordingly (4) WESLEY (acute kidney injury) Status: Acute Problem Text: Most likely secondary to obstructive uropathy IV fluids normal saline 70 mL has been started Patient is scheduled for relief of obstruction in a.m. by urology procedure Strict I and O's Plan / VTE VTE Prophylaxis Ordered?: Yes SASHA TRAYLOR MD Sep 09, 2018 03:00
[2018-09-09] MEDS: HumaLOG INSULIN (NovoLOG) PER UNIT SC SCH ×5 (03:23→20:52)
[2018-09-09] MEDS: MORPHINE 4 MG/ML 1ML VIAL/SYRINGE (J2270) IV PRN ×3 (05:28→20:51)
[2018-09-09] MEDS: ONDANSETRON 4MG/2ML VIAL (J2405) IV PRN (06:06)
[2018-09-09] MEDS ORDERED: MORPHINE 4 MG/ML 1ML VIAL/SYRINGE (J2270) IV ONE (09:00)
[2018-09-09] MEDS ORDERED: PROPOFOL 200 MG/20 ML VIAL As Ordered ONE (09:44)
[2018-09-09] MEDS ORDERED: MIDAZOLAM INJ 2 MG/2 ML VIAL (J2250) As Ordered ONE (09:44)
[2018-09-09] MEDS ORDERED: LIDOCAINE 2% INJ 100 MG/5 ML SDV (FOR ANES.) As Ordered ONE (09:44)
[2018-09-09] MEDS ORDERED: fentaNYL 100 MCG/2 ML INJECTION (J3010) As Ordered ONE (09:44)
[2018-09-09] MEDS ORDERED: dexameTHASONE 4 MG/ML 1ML VIAL (J1100) As Ordered ONE (09:45)
[2018-09-09] MEDS ORDERED: CONRAY-60 60% 50ML VIAL (Q9961) As Ordered ONE (10:51)
[2018-09-09] MEDS ORDERED: ePHEDrine SULFATE 25 MG/5 ML(5MG/ML) SYRINGE As Ordered ONE (11:30)
[2018-09-09] MEDS ORDERED: ONDANSETRON 4MG/2ML VIAL (J2405) As Ordered ONE ×2 (11:30→12:59)
[2018-09-09] MEDS ORDERED: PHENYLephrine HCL 500 MCG/5 ML (100MCG/ML) SYRINGE (J2370) As Ordered ONE (11:31)
--- NOTE | 2018-09-09 11:58 | CR ---
DATE OF CONSULTATION: 09/09/2018 UROLOGIC CONSULT REASON FOR CONSULTATION: Right flank pain. HISTORY OF PRESENT ILLNESS: The patient is a 58-year-old gentleman well known to FLORINDA Taylor and Dr. Johnny German status post a right extracorporeal shock wave lithotripsy (ESWL) on 07/20/2018 for a 6 mm stone. Originally he was doing well after the procedure but then began having fairly significant right flank pain. He came to the emergency room, and a CT scan was done, which showed a 2 cm steinstrasse in the distal right ureter. His serum creatinine came up to 2.26 from his baseline of 1.12. After discussing all different options, alternatives, risks, and benefits, it was decided to bring him to the operating room for ureteroscopic stone manipulation. The patient also has some hesitancy with urination, which he has had for quite some time. He also has complained of burning sensation under the penis, which occurs every day and on a bothersome scale can be as high as a 4. He was placed on Flomax to see if he could pass the stones, and it does sound like this has helped a little bit with his urinary issues. The CT scan also showed a large prostate. PAST MEDICAL HISTORY: Diabetes, high blood pressure, gastroesophageal reflux disease (GERD), hyperlipidemia, diverticulitis, sleep apnea, depression, urinary frequency and hesitancy, pain in the shaft of his penis and a history of kidney stones. SURGICAL HISTORY: Colonoscopy and acromioclavicular (AC) repair of his right shoulder, right ESWL by Dr. German 07/19/2018 and right shoulder repair 07/31/2018. FAMILY HISTORY: His father is alive with diabetes and high blood pressure, and his mother is also alive. His brother had testicular cancer. SOCIAL HISTORY: He does not smoke cigarettes. He is . He drinks one to two alcoholic beverages daily. He denies the use of recreational drugs. ALLERGIES: INVOKANA and LATEX causes a rash. REVIEW OF SYSTEMS: A 12 system review is negative except for what is in the HPI. PHYSICAL EXAMINATION: This is a well-developed, well-nourished gentleman in no apparent respiratory distress. He is alert and oriented times three. He is afebrile at 98.2, and his pulse is 74. His blood pressure is 128/70. His head is normocephalic, atraumatic. Eyes: Pupils equal, round, and reactive to light and accommodation. His neck was supple, and his trachea was midline with no supraclavicular or cervical adenopathy. His heart is regular and his lungs are clear to auscultation and percussion. He does have some mild right costovertebral angle (CVA) tenderness and right lower abdominal discomfort on palpation without any rebound. His extremities show no cyanosis, clubbing or edema. LABORATORY DATA: His white blood count is 7.7 and his hemoglobin and hematocrit is 13.9 over 40.6. His BUN is elevated at 34 along with an elevated creatinine of 2.26. His serum calcium was normal at 8.2 and his baseline creatinine is 1.12. CT scan of the abdomen and pelvis without contrast 09/09/2018 shows right obstructive uropathy extending to a collection of multiple distal right ureteral calculi over a nearly 2 cm segment to the right ureterovesical junction (UVJ) consistent with steinstrasse and this new or increased since 09/07/2018. He still has a nonobstructing right renal calculi and a probable left lower pole renal peripelvic cyst and mild prostatic enlargement. He has cholelithiasis and pancreatic calcifications. DISCUSSION: I discussed these findings at length with Mr. Tyson at the hospital today. After discussing all different options, alternatives, risks and benefits, it was decided to bring him to the operating room for definitive management. We discussed how ureteroscopy is done and what to expect both pre and post procedurally. He understands that a ureteral stent will be left in place, which will need to be removed cystoscopically in the office. The major risks discussed included but was not limited to the risks of anesthesia, reactions to medication, bleeding, infection, inability to get all the stones out, ureteral injury, and pain from the stent. We did discuss watchful waiting, but this was not recommended with such a large steinstrasse and in lieu of his renal function. Informed consent was obtained in both verbal and written form. IMPRESSION: 1. Status post a right ESWL by Dr. German 07/20/2018, now with a 2 cm steinstrasse in the distal right ureter, pain, and acute renal insufficiency. 2. Mild prostatic hypertrophy on CT scan with complaints of urinary hesitancy and frequency, now on tamsulosin for stones, but in enjoying this because of the BPH symptoms. 3. History of pain in his penis, which is a burning sensation on the ventral aspect, which on a bothersome scale can be as high as a 4. 4. Multiple medical problems including but not limited to diabetes, high blood pressure, gastroesophageal reflux disease, sleep apnea, and a history of passing a kidney stone once in the past. PLAN: 1. Patient to go to the operating room for cystoscopy, right ureteroscopy, laser lithotripsy, and stent placement. 2. As far as the penile pain, it is possible he can try either physical therapy or amitriptyline in the future. 3. Continue Flomax since this seems to be helping with his BPH symptoms.
[2018-09-09] MEDS ORDERED: METOCLOPRAMIDE INJ 10MG/2ML VIAL (J2765) As Ordered ONE (12:33)
[2018-09-09] MEDS ORDERED: LR 1,000 ML IV SCH (12:45)
[2018-09-09] MEDS ORDERED: fentaNYL 100 MCG/2 ML INJECTION (J3010) IV PRN (12:45)
[2018-09-09] MEDS ORDERED: METOCLOPRAMIDE INJ 10MG/2ML VIAL (J2765) IV PRN (12:45)
[2018-09-09] MEDS ORDERED: ONDANSETRON 4MG/2ML VIAL (J2405) IV PRN (12:45)
[2018-09-09] MEDS ORDERED: PERCOCET 5MG/325MG TAB PO PRN (12:45)
--- NOTE | 2018-09-09 13:30 | REP ---
Retrograde pyelogram: A series of four intraoperative fluoroscopic images are performed during right ureteral stent placement. The final film demonstrates the proximal and distal stent pigtails to be in satisfactory locations. Fluoroscopic exposure time is 14 seconds. The fluoroscopic images are performed with last image hold technology and require no additional radiation. Electronically Signed by Vahid King MD 09/09/2018 01:21 P
[2018-09-09] MEDS: LR 1,000 ML IV SCH ×2 (13:57→20:52)
--- NOTE | 2018-09-09 15:11 | IPNPDOC ---
Text Note Date of Service The patient was seen on 09/09/18. NOTE Pt seen and examined at bedside post procedure. Pt doing well post procedure with no complaints other than he is hungry. Pain greatly improved. Patient denies fevers, chills, chest pain, difficult breathing, nausea, vomiting, diarrhea, leg pain or swelling obese man laying in bed RRR, nl s1/2 +murmur CTA b/l no w/r/r soft, ND, NTTP intact distal pulses, no edema no focal deficits nl mental status, A&Ox3 Assessment/Plan: 58 years old white male admitted with the diagnosis of obstructive uropathy secondary to multiple kidney stones with worsening renal function #obstructive uropathy -s/p procedure to relieve obstruction -pain improved but cont. pain control as needed -advance diet -cont. IVFs -trend Cr #WESLEY -trend Cr -cont. IVFs -obstruction relieved #diabetes -FSG -ISS #HTN -trend BP -reintroduce home meds as needed Disposition: home likely tomorrow VS,Fishbone, I+O VS, Fishbone, I+O Laboratory Tests 09/09/18 01:08 Red Blood Count 4.53, Mean Corpuscular Volume 89.6, Mean Corpuscular Hemoglobin 30.7, Mean Corpuscular Hemoglobin Concent 34.2, Red Cell Distribution Width 13.4, Neutrophils (%) (Auto) 66.6 H, Lymphocytes (%) (Auto) 19.3 L, Monocytes (%) (Auto) 11.0 H, Eosinophils (%) (Auto) 2.1, Basophils (%) (Auto) 0.4, Neutrophils # (Auto) 5.1, Lymphocytes # (Auto) 1.5, Monocytes # (Auto) 0.9 H, Eosinophils # (Auto) 0.2, Basophils # (Auto) 0.0 Vital Signs Date Time Temp Pulse Resp B/P (MAP) Pulse Ox O2 Delivery O2 Flow Rate FiO2 09/09/18 14:25 98.3 84 16 126/68 (87) 95 2.0 09/09/18 04:24 Room Air I&O- Last 24 Hours up to 6 AM 09/09/18 06:00 Intake Total 275 ml Output Total 100 ml Balance 175 ml CARLOS MARIE MD Sep 09, 2018 15:11
[2018-09-09] MEDS: amLODIPine 5 MG TAB PO SCH (16:02)
[2018-09-09] MEDS: OMEPRAZOLE 20 MG CAP PO SCH (16:02)
[2018-09-09] MEDS: TAMSULOSIN 0.4 MG CAP PO SCH (16:02)
[2018-09-10] VITALS: BP 122/62
[2018-09-10 04:00] VITALS: BP 137/77
[2018-09-10] MEDS: LR 1,000 ML IV SCH ×2 (04:50→12:15)
[2018-09-10] MEDS: MORPHINE 4 MG/ML 1ML VIAL/SYRINGE (J2270) IV PRN ×2 (04:51→10:16)
[2018-09-10] MEDS ORDERED: KETOROLAC 30 MG/ML VIAL (J1885) IV ONE (06:30)
[2018-09-10 06:57] LABS: HEMATOCRIT 40.3 % (42.0-52.0); HEMOGLOBIN 13.5 g/dl (13.5-17.5); MEAN CORPUSCULAR HEMOGLOBIN 29.7 pg (27.0-33.0); MEAN CORPUSCULAR HGB CONC 33.5 g/dl (32.0-36.5); MEAN CORPUSCULAR VOLUME 88.6 fl (80.0-96.0); PLATELET COUNT, AUTOMATED 172 10^3/uL (150-450); RED BLOOD COUNT 4.55 10^6/uL (4.30-6.10); WHITE BLOOD COUNT 10.5 10^3/uL (4.0-10.0)
[2018-09-10 07:28] LABS: ALBUMIN 3.4 GM/DL (3.2-5.2); BILIRUBIN,TOTAL 0.7 MG/DL (0.2-1.0); CALCIUM LEVEL 8.3 MG/DL (8.8-10.2); CREATININE FOR GFR 1.97 MG/DL (0.70-1.30); GLOMERULAR FILTRATION RATE 37.1 (>49); POTASSIUM SERUM 4.3 MEQ/L (3.5-5.1); TOTAL PROTEIN 6.8 GM/DL (6.4-8.2)
[2018-09-10] MEDS: HumaLOG INSULIN (NovoLOG) PER UNIT SC SCH ×2 (07:38→12:16)
[2018-09-10 08:00] VITALS: BP 138/86
[2018-09-10] MEDS: OMEPRAZOLE 20 MG CAP PO SCH (08:50)
[2018-09-10 08:51] VITALS: BP 138/72
[2018-09-10] MEDS: TAMSULOSIN 0.4 MG CAP PO SCH (08:51)
[2018-09-10] MEDS: amLODIPine 5 MG TAB PO SCH (08:51)
[2018-09-10] MEDS: ONDANSETRON 4MG/2ML VIAL (J2405) IV PRN (10:25)
[2018-09-10 12:00] VITALS: BP 140/78
[2018-09-10] MEDS ORDERED: JANU50TA8 PO (12:50)
[2018-09-10] MEDS ORDERED: OXYC1TAB23 PO (12:50)
--- NOTE | 2018-09-10 13:13 | DS.PDOC ---
Discharge Summary General Date of Admission Sep 09, 2018 at 02:45 Date of Discharge 09/10/18 Attending Physician: CARLOS MARIE MD Discharge Summary PROCEDURES PERFORMED DURING STAY: cystoscopy, right ureteroscopy, laser lithotripsy, and stent placement. ADMITTING DIAGNOSES: 1. Obstructive uropathy 2. Nephrolithiasis 3. WESLEY 4. DMII 5. HTN DISCHARGE DIAGNOSES: 1. Obstructive uropathy 2. Nephrolithiasis 3. WESLEY 4. DMII 5. HTN COMPLICATIONS/CHIEF COMPLAINT: Kidney Stone On Right Side, Obstructive Uropathy. HISTORY OF PRESENT ILLNESS: As per admission H&P: "58 years old white male with past medical history of diabetes mellitus, hypertension, GERD, presented with chief complaints of right flank pain, right lower abdominal pain. Patient has been complaining of similar symptoms in the last several weeks and came to ED on , but for discharge home after workup was negative. Patient came back again with complaining of severe right-sided pain, right flank and right lower abdomen radiating towards his back is sharp in nature, associated with the nausea not relieved with medication and not exacerbated by dietary intake of any position. Associated with with fever, vomiting or diarrhea. On CT abdomen. Patient was found to have an obstructive uropathy with worsening renal function and we were called into it. Advised to admit patient as patient will be seen by urology and taken to the OR in the morning. Patient offers no new other complaints such as chest pain, shortness of breath, etc." HOSPITAL COURSE: Urology consulted with plan for OR with placement of right ureteral stent. Pt tolerated procedure well. BMP in the AM showed slightly i mproved Cr down to 1.97 from 2.26. Given well appearance and improved pain on exam pt felt to be well enough to be discharged home with follow up with PMD and urology. Pt seen and examined on day of discharge. Pt c/o of some flank radiating down right groin pain/soreness but otherwise denies other complaints of fever, chills, CP, SOB, N/V/D. Pt tolerating diet. Spoke to urology (Dr. Marie) ok to discharge with follow up with PMD for Cr check to ensure WESLEY as resolved back to baseline Cr. Discussed pt with pt and he is in agreement with plan to be discharged home. Pt verbalized understanding that he needs to see his PMD within the week to have BMP drawn to check Cr. Will also decrease his Ja numet to once a day until elevated Cr resolves more. Plan for PMD to restart BID dosing. DISCHARGE MEDICATIONS: Please see below. ALLERGIES: Please see below. PHYSICAL EXAMINATION ON DISCHARGE: VITAL SIGNS: Please see below. GENERAL: Sitting up in chair in NAD, pleasant on interview, CARDIOVASCULAR EXAMINATION: RRR, nl s1/2 +systolic murmur appreciated RESPIRATORY EXAMINATION: CTA b/l no w/r/r ABDOMINAL EXAMINATION: soft, ND, mild TTP RLQ/groin region EXTREMITIES: no edema, intact distal pulses SKIN: no rashes or skin breakdown NEUROLOGICAL EXAMINATION: no focal deficits PSYCHIATRIC EXAMINATION: nl mental status, A&Ox3 LABORATORY DATA: Please see below. IMAGING: CT ab/pelvis: 1. Right obstructive uropathy extending to a collection of multiple distal right ureteral calculi over a nearly 2 cm segment to the right UVJ consistent with steinstrasse, new or increased since 09/07/2018 and may reflect interval lithotripsy. 2. Nonobstructing right renal calculi. 3. Probable left lower pole renal peripelvic cysts. 4. Mild bibasilar interstitial prominence with minimal fibro-atelectatic change and large calcified granuloma in the left lower lobe. 5. Cholelithiasis. 6. Pancreatic calcifications suggesting residua of previous pancreatitis. 7. Mild prostatic enlargement. ACTIVITY: As tolerated. DIET: diabetic diet DISCHARGE PLAN: Plan to follow up with PMD within 5days, Urology to have stent removed as directed. Pt will also need BMP within 5days to recheck Cr. DISPOSITION: Home DISCHARGE INSTRUCTIONS: 1. Please follow up with your PMD within 5days for BMP check for Cr (would like to see resolution of WESLEY) 2. Please follow up with urology as directed to have stent removed ITEMS TO FOLLOWUP ON ON OUTPATIENT: 1. BMP for Cr (currently Cr. 1.97) 2. Please readjust pt's janumet back to twice a day dosing if WESLEY has resolved DISCHARGE CONDITION: Stable TIME SPENT ON DISCHARGE: 35 minutes. Vital Signs/I&Os Vital Signs Date Time Temp Pulse Resp B/P (MAP) Pulse Ox O2 Delivery O2 Flow Rate FiO2 09/10/18 12:00 97.9 70 18 140/78 (98) 95 09/10/18 09:30 1.0 09/09/18 04:24 Room Air I&O- Last 24 Hours up to 6 AM 09/10/18 06:00 Intake Total 3365 ml Output Total 3550 ml Balance -185 ml Laboratory Data Labs 24H Laboratory Tests 2 09/09/18 16:51: Bedside Glucose (Misc Panel) 377H 09/09/18 20:37: Bedside Glucose (Misc Panel) 383H 09/10/18 06:31: Nucleated Red Blood Cells % (auto) 0.0, Anion Gap 9, Glomerular Filtration Rate 37.1L, Blood Urea Nitrogen 31H, Creatinine 1.97H, Sodium Level 135L, Potassium Level 4.3, Chloride Level 100, Carbon Dioxide Level 26, Calcium Level 8.3L, Aspartate Amino Transf (AST/SGOT) 10, Alanine Aminotransferase (ALT/SGPT) 46, Alkaline Phosphatase 72, Total Bilirubin 0.7, Total Protein 6.8, Albumin 3.4, Albumin/Globulin Ratio 1.00 09/10/18 11:27: Bedside Glucose (Misc Panel) 279H CBC/BMP Laboratory Tests 09/10/18 06:31 Red Blood Count 4.55, Mean Corpuscular Volume 88.6, Mean Corpuscular Hemoglobin 29.7, Mean Corpuscular Hemoglobin Concent 33.5, Red Cell Distribution Width 13.5, Calcium Level 8.3 L, Aspartate Amino Transf (AST/SGOT) 10, Alanine Aminotransferase (ALT/SGPT) 46, Alkaline Phosphatase 72, Total Bilirubin 0.7, Total Protein 6.8, Albumin 3.4 FSBS Laboratory Tests Test 09/09/18 16:51 09/09/18 20:37 09/10/18 11:27 Range/Units Bedside Glucose (Misc Panel) 377 383 279 80-115 MG/DL Discharge Medications Scheduled Amlodipine Besylate (Amlodipine Besylate) 5 Mg Tab, 5 MG PO DAILY, (Reported) Glyburide (Glyburide) 5 Mg Tab, 10 MG PO BID, (Reported) Hydrochlorothiazide (Hydrochlorothiazide) 50 Mg Tablet, 50 MG PO DAILY, (Reported) Irbesartan (Irbesartan) 300 Mg Tab, 300 MG PO DAILY, (Reported) Omeprazole (Omeprazole) 40 Mg Cap, 40 MG PO DAILY, (Reported) Sitagliptin Phos/Metformin HCl (Janumet 50-1,000 mg Tablet) 1 Each Tablet, 1 TAB PO DAILY Tamsulosin HCl (Flomax) 0.4 Mg Capsule, 0.4 MG PO DAILY, (Reported) Scheduled PRN Oxycodone HCl/Acetaminophen (Oxycodone-Acetaminophen 5-325) 1 Each Tablet, 1 TAB PO QIDP PRN for pain Allergies Coded Allergies: adhesive (Verified Allergy, Intermediate, rash and blisters ie bandaids tape, 07/20/18) canagliflozin (Verified Allergy, Intermediate, rash, 07/20/18) latex (Verified Adverse Reaction, Mild, sensitivity, 07/20/18) CARLOS MARIE MD Sep 10, 2018 13:13
--- NOTE | 2018-09-11 16:54 | RO ---
DATE OF PROCEDURE: 09/09/2018 PREOPERATIVE DIAGNOSIS: Right steinstrasse measuring up to 2 cm, status post extracorporeal shock wave lithotripsy (ESWL) 07/20/2018 with acute renal insufficiency. POSTOPERATIVE DIAGNOSIS: Right steinstrasse measuring up to 2 cm, status post extracorporeal shock wave lithotripsy (ESWL) 07/20/2018 with acute renal insufficiency. PROCEDURE: Cystoscopy, right ureteroscopy with laser lithotripsy of the leading stone and right ureteral stent placement. SURGEON: Dr. Olga Lidia Lazo CAFETERIA SUPERVISOR: ANESTHESIA: General. MEDICATIONS: Ancef 2 grams preoperatively. DRAINS: 6-[place]oz[place]ican [place] double-J ureteral stent. FINDINGS: Significant inflammation and narrowing of the distal ureter. INDICATIONS FOR PROCEDURE: The patient is a 58-year-old gentleman who had a right ESWL by Dr. Johnny German on 07/20/2018. Postoperatively, he had only passed some gravel and last night had very severe right lower quadrant pain, which brought him to the emergency room. In the emergency room (ER), a CT scan of the abdomen and pelvis was done, which showed a 2 cm distal right ureteral streinstrasse. His creatinine was quite elevated from his baseline of 1.12 to 2.26 with a BUN of 34. After discussing all different options, alternatives, risks, and benefits, it was decided to bring him to the operating room for ureteroscopy, laser lithotripsy, and stent placement. All different options, alternatives, risks, benefits were discussed including but not limited to the risks of general anesthesia, reactions to medication, bleeding, infection, inability to remove the stones, ureteral injury, discomfort from the stent, and need for the stent to be removed in the future. Informed consent was obtained in both verbal and written form. DESCRIPTION OF PROCEDURE: The patient was brought into the operating room. Sequential compression devices and thromboembolism deterrent (ARISTEO) stockings were in place and preoperative antibiotics had been given. Anesthesia was induced. The patient was then placed in the lithotomy position and careful attention was paid that his pressure points were well padded and protected. Next, a #21-[place]oz[place] cystoscope was inserted. The urethra was noted to be open without any evidence of lesions or strictures. Upon entering the prostatic urethra, there was significant bilateral hypertrophy with about a 3 cm prostatic urethra with most of the obstruction from mid to the bladder neck. Upon entering the bladder, both ureteral orifices were seen. There was small stone fragments and gravel seen at the base of the bladder. There was no erythematous patches, lesions or other significant abnormalities. At this point, I tried to place a wire up the right ureteral orifice and with difficulty, was able to pass the stones until a good curl was seen in the kidney. This was left as a safety wire. Next, a rigid ureteroscope was placed under direct vision, and the distal ureter showed quite a lot of inflammatory change and narrowing where it was very difficult to pass the ureteroscope. I was finally able, though, to mobilize past and saw a very large leading fragment. This leading fragment was then laser lithotripsied until it was dusted. There were lots of small fragments past it, but the distal mucosa was so irritated that it was decided just to place a stent at this point and hopefully with dilation, once the stent is removed the stones will be able to pass. At this point, the stent was placed over the guidewire and was seen with an excellent curl up in the right kidney and down in the bladder. The patient's bladder was emptied, and he was returned to the recovery room in stable condition.
== END 2018-09-10 14:40 | disposition home or self-care (01) | DRG 465 ==
LOC: M ED 00:18 → M ED INP 02:45 → M PED 04:39
PROVIDERS: ADMIT Internal Medicine; ATTEND Internal Medicine
PROC: 0TCB8ZZ Extirpation of Matter from Bladder, Via Natural or Artificial Opening Endoscopic (ICD-10-PCS; principal; 2018-09-09 12:00)
DX: N20.0 Calculus of kidney (principal); N17.9 Acute kidney failure, unspecified; N13.8 Other obstructive and reflux uropathy; E11.9 Type 2 diabetes mellitus without complications; I10 Essential (primary) hypertension; K21.9 Gastro-esophageal reflux disease without esophagitis; K80.20 Calculus of gallbladder without cholecystitis without obstruction; Z79.899 Other long term (current) drug therapy; Z91.040 Latex allergy status; Z88.8 Allergy status to other drugs, medicaments and biological substances; E78.5 Hyperlipidemia, unspecified; K57.30 Diverticulosis of large intestine without perforation or abscess without bleeding; G47.30 Sleep apnea, unspecified; F32.9 Major depressive disorder, single episode, unspecified

== ENCOUNTER → 2018-09-25 | Outpatient (CLI) | payer BC ==
[~2018-09-25] MED LIST changes: +HYDR50TAB PO; -OMEP40CA2 PO; +OMEP40CA97 PO; +OXYC1TAB23 PO
--- NOTE | 2018-09-25 17:27 | REP ---
REASON: History of renal calculi. COMPARISON: 08/10/2018 Once again surgical clips and spenser are seen throughout the abdomen and pelvis. There is a double pigtail catheter on the right. The approximate portion of which is in the region of the renal pelvis and the distal portion of which is in the region of the urinary bladder. This is the only change from the prior exam. Electronically Signed by Claudy Ibrahim DO 09/26/2018 11:57 A
[2018-09-25 18:42] LABS: CALCIUM LEVEL 9.4 MG/DL (8.8-10.2); CREATININE FOR GFR 1.36 MG/DL (0.70-1.30); GLOMERULAR FILTRATION RATE 56.9 (>49); POTASSIUM SERUM 4.7 MEQ/L (3.5-5.1)
== END ==
LOC: M SMT 14:31
PROVIDERS: ATTEND Nurse Practitioner Family
DX: N20.0 Calculus of kidney (principal)

== ENCOUNTER → 2019-04-12 | Outpatient (CLI) | payer OTHER, BC ==
[~2019-04-12] MED LIST changes: -IRBE300T10 PO; +IRBE300T7 PO
--- NOTE | 2019-04-12 09:39 | ECGEPIP ---
[facility] Test Date: 2019-04-12 Pat Name: ONI DELAROSA Department: Room: - Gender: Male Director Medical: JUAN : 1960 Requested By: Fred Muhammad Order Number: [id number] Reading MD: Wilian Mensah Measurements Intervals [place] Rate: 75 P: 22 MT: 187 QRS: -13 QRSD: 110 T: 15 QT: 378 QTc: 424 Interpretive Statements normal sinus rhythm Incomplete LBBB Marginal inferior T wave abnormalities No change from 06/26/18. Electronically Signed on 04-12-2019 9:39:41 EST by Wilian Mensah
[2019-04-12 10:24] LABS: CREATININE FOR GFR 1.39 MG/DL (0.70-1.30); GLOMERULAR FILTRATION RATE 55.5 (>49); POTASSIUM SERUM 3.9 MEQ/L (3.5-5.1)
== END ==
LOC: M LAB 08:30
PROVIDERS: ATTEND Orthopaedic Surgery
DX: Z01.812 Encounter for preprocedural laboratory examination (principal); G56.01 Carpal tunnel syndrome, right upper limb; I44.7 Left bundle-branch block, unspecified; R94.31 Abnormal electrocardiogram [ECG] [EKG]

== ENCOUNTER → 2019-04-16 | Outpatient (CLI) | payer BC ==
--- NOTE | 2019-04-16 12:08 | REP ---
RENAL ULTRASOUND: Real-time sonographic evaluation of the kidneys performed. Kidneys are normal in size and echotexture, right kidney measuring 11.9 x 5.5 x 5.6 and left kidney 11.2 x 6.6 x 5.9 cm. There is no hydronephrosis bilaterally. Prominent lobulation is noted of the left cortex. No definite renal stone is seen. Urinary bladder is not well distended. Ureteral jets could not be visualized with Doppler color evaluation. IMPRESSION: Unremarkable renal ultrasound. Electronically Signed by Vahid Sharma MD 04/16/2019 01:36 P
== END ==
LOC: M RAD 11:04
PROVIDERS: ATTEND Urology
DX: N20.0 Calculus of kidney (principal)

== ENCOUNTER 2019-06-04 20:03 | Inpatient (IN) | payer BC ==
[~2019-06-04] VITALS: Ht 182.9 cm; Wt 109.6 kg
[2019-06-04] MEDS ORDERED: TRUL10IN SC (20:19)
[2019-06-04] MEDS ORDERED: ZYLO300T6 PO (20:19)
[2019-06-04] MEDS ORDERED: METF10004 PO (20:19)
[2019-06-04] MEDS ORDERED: GABA600T4 PO (20:19)
[2019-06-04] MEDS ORDERED: NS 1,000 ML IV ONE ×2 (20:45→22:15)
[2019-06-04 20:54] LABS: BASO # 0.1 10^3/uL (0.0-0.2); BASO % 0.7 % (0.0-1.0); EOS # 0.2 10^3/uL (0.0-0.5); EOS % 2.6 % (0.0-3.0); HEMATOCRIT 49.8 % (42.0-52.0); HEMOGLOBIN 16.5 g/dl (13.5-17.5); LYMPH # 2.7 10^3/uL (1.5-5.0); LYMPH % 29.7 % (24.0-44.0); MEAN CORPUSCULAR HEMOGLOBIN 30.4 pg (27.0-33.0); MEAN CORPUSCULAR HGB CONC 33.1 g/dl (32.0-36.5); MEAN CORPUSCULAR VOLUME 91.7 fl (80.0-96.0); MONO # 0.9 10^3/uL (0.0-0.8); MONO % 9.5 % (0.0-5.0); NEUTROPHILS # 5.2 10^3/uL (1.5-8.5); PLATELET COUNT, AUTOMATED 223 10^3/uL (150-450); RED BLOOD COUNT 5.43 10^6/uL (4.30-6.10); WHITE BLOOD COUNT 9.2 10^3/uL (4.0-10.0)
[2019-06-04 21:18] LABS: BLOOD UREA NITROGEN 45 MG/DL (7-18); CALCIUM LEVEL 8.7 MG/DL (8.8-10.2); CARBON DIOXIDE LEVEL 22 MEQ/L (21-32); CHLORIDE LEVEL 105 MEQ/L (98-107); CK-MB VALUE MASS < 1.0 NG/ML (<3.6); CPK CREATINE PHOSPHOKINASE 64 U/L (39-308); GLOMERULAR FILTRATION RATE 24.6 (>49); GLUCOSE, FASTING 182 MG/DL (70-100); MB/CK RELATIVE INDEX 1.56 (< OR =4); POTASSIUM SERUM 4.1 MEQ/L (3.5-5.1); SODIUM LEVEL 137 MEQ/L (136-145); TROPONIN I < 0.02 NG/ML (< 0.10)
[2019-06-04] MEDS ORDERED: NS 500 ML IV ONE (21:45)
[2019-06-04] MEDS ORDERED: NS 1,000 ML IV SCH (22:00)
[2019-06-04] MEDS ORDERED: DEXTROSE 50% 50 ML SYRINGE IV PRN (22:15)
[2019-06-04] MEDS ORDERED: GLUCOSE 4 GM CHEW TABLET PO PRN (22:15)
[2019-06-04] MEDS ORDERED: GLUCAGON FOR INJ 1 MG VIAL (J1610) SC PRN (22:15)
[2019-06-04] MEDS ORDERED: FIBE625T PO (22:21)
[2019-06-04] MEDS ORDERED: ACET500T15 PO (22:21)
[2019-06-04] MEDS ORDERED: OXYC1TAB23 PO (22:21)
[2019-06-04 22:31] LABS: C REACTIVE PROTEIN QUANTITATIV < 0.30 MG/DL (0.00-0.30)
[2019-06-04] MEDS ORDERED: ACETAMINOPHEN 500 MG TAB PO PRN (23:00)
[2019-06-04] MEDS ORDERED: PERCOCET 5MG/325MG TAB PO PRN (23:00)
--- NOTE | 2019-06-04 23:00 | REPVR ---
PROCEDURE INFORMATION: Exam: US Retroperitoneal Limited, Kidneys Exam date and time: 06/04/19 (10:37pm) Age: 59 years old Clinical indication: Renal failure. Possible obstruction. TECHNIQUE: Imaging protocol: Real-time ultrasound of the retroperitoneum with image documentation. Examination was focused on the kidneys. COMPARISON: US RENAL of 04/16/19 FINDINGS: RIGHT KIDNEY --- The right kidney measures 12.2 cm in length. No hydronephrosis nor mass is noted. No upper tract stones are identified. LEFT KIDNEY --- The left kidney measures 12.4 cm in length. No hydronephrosis nor mass is noted. No upper tract stones are identified. URINARY BLADDER --- No significant pathology. No stones nor mass. IMPRESSION: No acute pathology. Normal renal size, bilaterally. No hydronephrosis. Electronically signed by: Maria De Jesus Briscoe On 06/04/2019 22:59:57 PM
[2019-06-04 23:44] LABS: NT-PRO BNP 50 PG/ML (<125)
--- NOTE | 2019-06-05 00:15 | HPE ---
DATE OF ADMISSION: 06/04/2019 CHIEF COMPLAINT: Stumbling, my sugar was very high. HISTORY OF PRESENT ILLNESS: This is a 59-year-old male with a history of type 2 diabetes, hypertension, on chronic hydrochlorothiazide, irbesartan and amlodipine, irritable bowel syndrome with 2-3 bowel movements daily, sometimes watery, seen by Dr. Boykin, diagnosed with diverticulitis with possible Crohn's versus irritable bowel syndrome, currently on no medications, presents to the emergency room due to uncontrolled sugar at home. Around 1:30 to 2:00pm, he checked his sugar, and it was 455. At 5:30 to around 6:00pm, it was around 355. The patient has noted increasing weakness, difficulty ambulating and was stumbling along for the past few days. This morning when he got up, he had breakfast, but felt tired and weak and then he napped for 2 hours and felt better. He has noticed that for the past week he has felt generalized weakness; if he was doing something, he had to stop. This evening he was prepping vegetables for his who was making chili. After that, he was stumbling, unable to walk unassisted. When he was going up the stairs, he felt very weak and had to stop for a few minutes. Today, while he was outside, he fell off the porch without any head injury and was able to get up quickly with no loss of consciousness. He has had no fever, no chills, no change in appetite. No weight gain or weight loss. He has noted that he is not urinating very well, usually drinks about 20 fluid ounces daily, even more, but today he has noted some dark urine but denies any hematuria, dysuria, urgency, frequency, fever, chills, or flank pain. He denied any chest pain, but he did feel a little short of breath when he walks around. He denied any pleuritic chest pain. No history of deep vein thrombosis (DVT) or pulmonary embolism (PE) in the past. He has had no changes in his home medications and has chronic neck and thigh pain. 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 This has not changed. He also complains of neck pain sometimes and has a pinched nerve over the right shoulder when he fell at work. He is currently on Workman's Comp, but this is also unchanged. The patient has no blurred vision, changes in vision. Due to concerns for his high sugars at home, he presented to the emergency room (ER). On arrival, his blood pressure was systolic of 154. After 30 minutes, blood pressure was rechecked, and it was 85/54, prompting further evaluation. The patient was afebrile. He had normal CBC. Creatinine was elevated at 2.8 from baseline of 1.3. Lactic acid was elevated at 4.9. Hospitalist was called to admit for acute on chronic renal failure and evaluation of hypotension. UA, chest x-ray, EKG are still unavailable at this time. Cardiac markers remain negative. Patient also complained of some watery stools, usually has two bowel movements a day. The first one is usually solid, the second one is watery. He has been having that daily for the past week. He has not been on any recent antibiotic use. No sick contacts. Last week he did eat take out fish from [employer], but it was completely cooked. He drinks well water at home. Usually when the makes iced tea or any mixed drinks, he does use well water. Their well water has not been checked for parasites or bacteria in several years. Patient denies any hematemesis, bright red blood per rectum, melena or black tarry stools. PAST MEDICAL HISTORY: Diabetes. Hypertension. Chronic kidney disease, stage III. Baseline creatinine 1.3. Uric acid nephrolithiasis. Dyslipidemia. Obstructive sleep apnea, not on CPAP. Diverticulitis. Depression. PAST SURGICAL HISTORY: Right extracorporeal shock wave lithotripsy (ESWL) 08/02, Dr. German. Cystoscopy with right stent removal 10/02. Right [place] 08/2018. Right shoulder surgery 2017 and 2018. Left side inguinal hernia repair. Carpal tunnel syndrome repair. Two hernia surgeries. ALLERGIES: To ADHESIVES causing a rash and blisters. INVOKANA causing yeast infection. HOME MEDICATIONS: - acetaminophen 500 mg every 4 hours as needed for pain - allopurinol 300 mg daily - amlodipine 5 mg daily - FiberCon 2500 mg twice a day - gabapentin 600 mg three times a day - hydrochlorothiazide 50 mg daily - irbesartan 300 mg daily - metformin 1 gram twice a day with meals - Prilosec 40 mg daily - oxycodone/acetaminophen 5/325 one tablet every 6 hours as needed - Flomax 0.4 mg daily - Trulicity 0.75 mg per 0.5 mL subcu weekly - glyburide 10 mg by mouth twice a day SOCIAL HISTORY: Patient lives at home with his , currently on Workman's Compensation. 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 Denied any history of tobacco abuse. Drinks a rum and Coke daily, just one drink a night. No recreational drug use. FAMILY HISTORY: Father alive in his 80s with diabetes, hypertension. Mother alive, age 78; she had a hysterectomy for ovarian cancer. He has five brothers, one had testicular cancer 30 years ago - he is doing well, he is alive. He has two sons, one daughter. He lives with his at home. REVIEW OF SYSTEMS: Per history of the present illness. 12-point system otherwise negative. PHYSICAL EXAMINATION: Temperature 96.9, pulse 94, respiratory rate 18 at 2004 hours, patient's blood pressure was 153/117, 93% on room air. At 2037 hours, his blood pressure was 85/54, saturating 95% on room air. At 2232 hours at the bedside, blood pressure is 106/72 on bedside telemetry. Generally, patient is awake, alert, oriented to person, place and time. He is not short of breath. No conversational dyspnea. Able to complete his sentences. There is no pallor. HEENT: Patient has no icterus, jaundice, no pallor. Dry mucous membranes. No jugular venous distention (JVD), thyromegaly, or cervical lymphadenopathy. Lungs are clear to auscultation. No wheezing, rales, or rhonchi. Heart: S1, S2, sinus rhythm. No murmurs, rubs, or gallops. Abdomen: Obese, soft, nontender, nondistended. Positive bowel sounds times four quadrants. No rebound or guarding. Extremities: No cyanosis, clubbing or any pitting edema. LABORATORY DATA: White count 9.2, hemoglobin 16, hematocrit 49, platelet count 223, 57% neutrophils, 29 lymphocytes, 9.5 monocytes, eosinophils 2.6, basophils 0.6. Sedimentation rate is 1. Sodium 137, potassium 4.1, chloride 105, bicarbonate 22, BUN 45, creatinine 2.8, glucose of 182, A1c is pending, lactic acid 4.9, calcium 8.7, procalcitonin is pending. CRP is less than 0.3. TSH 3.37. Total CK 64, MB fraction less than 1, relative index 1.56. Urinalysis is pending. D-dimer is 380. Renal ultrasound preliminary report: No hydronephrosis. A chest x-ray is pending. ASSESSMENT AND PLAN: A 59-year-old male with diabetes, hypertension, hyperlipidemia, obstructive sleep apnea (JACOB), not on continuous positive airway pressure (CPAP), diverticulitis with two bowel movement daily, usually the second one being watery, dyslipidemia, depression, reflux, uric acid nephrolithiasis, chronic kidney disease stage III, presented to the emergency room with complaints of uncontrolled glucose and "stumbling." Patient was found to be hypotensive with systolic pressure of 85 and lactic acidosis. IMPRESSION: 1. Hypotension due to hypovolemia from a combination of loose stools and antihypertensives, which responded to ivfluids in the ER. Differential diagnosis includes hypovolemia from daily watery stools at home along with continued use of his hydrochlorothiazide, irbesartan and Norvasc for blood pressure. Patient otherwise denies any bright red blood per rectum, melena or black tarry stools. Cardiogenic is another possibility but unlikely since the patient has no complaints of chest pain, pressure or tightness. He has negative cardiac markers. EKG is still pending. We have also checked TSH, which appears to be normal. He has no risk factors for adrenal insufficiency and has not been on any recent steroid use. He responded nicely to IV fluids, so no further adrenal evaluation will be performed. 2. Septic shock is less likely as the patient is afebrile with normal white count, ESR and C-reactive protein. Procalcitonin has been checked. Patient most likely has hypovolemia; therefore, we will hold patient's Norvasc, hydrochlorothiazide and irbesartan and challenge him with intravenous fluids. ER had already given 1-1/2 liters intravenous normal saline bolus, which improved his blood pressure to 106 systolic at the bedside on hospital admission. I will give another bolus of normal saline and keep him on maintenance fluids, monitoring her oxygen saturation to make sure he does not get fluid overloaded. Will put him on strict intake and output, daily weights to make sure we do not overshoot. He will be kept on the medical-surgical floor as he appears to have responded to IV fluids. I am still awaiting the results of the chest x-ray and urinalysis. Since he does not have a fever, and the blood pressure has improved, I will not put him on any empiric antibiotics at this time. Due to the COVID pandemic and complaints of muscle aches, renal failure, and hypotension, we will do a rapid COVID-19 testing. 3. Acute kidney injury on chronic kidney disease stage III. Most likely due to hypovolemia with continued watery stools at home in the setting of continued use of his Norvasc, hydrochlorothiazide and irbesartan. Renal ultrasound does not show any hydronephrosis as a preliminary reading and no obstructive stones have been noted. Therefore, patient will be hydrated as a trial. If improved, no further evaluation is needed. Will continue to cycle the creatinine to check for improvement. Strict intake and output. Avoid nephrotoxins, nonsteroidal anti-inflammatory drugs (NSAIDs). We will hold the patient's metformin as well, which could have contributed to the lactic acidosis in light of the renal failure. Unfortunately, we are unable to obtain the fractional excretion of sodium since the patient did receive IV fluids before these urine electrolytes could be checked. We will continue him on Flomax as well. 4. Type 2 diabetes. Despite patient concerns of hyperglycemia at home with glucose check of 455 at around 1:30 to 2:00 p.m. and 355 around 5:30 to 6:00 p.m., patient's glucose level here appears to be within normal limits and at 182. We will continue on a consistent carbohydrate diet. We will check the A1c and for now hold the metformin in light of the lactic acidosis and renal failure, but he will be placed on an insulin sliding scale long-acting insulin and will monitor for glycemic control throughout the night into the morning and adjust accordingly for tighter glycemic control. 5. Hypertension. Hold off on all blood pressure medications due to low blood pressure. 6. History of uric acid nephrolithiasis. Currently asymptomatic. Renal ultrasound was negative for hydronephrosis. IV fluid trial for now. 7. Watery stools with a history of possible irritable bowel syndrome per his conversation with his general surgeon, Dr. Boykin. We will check inflammatory bowel disease serology panel. If the gastrointestinal (GI) panel is negative, we can give the patient antimotility drugs to control the watery output. Patient says that he drinks the well water at home, which has not been checked for ova and parasite in several years or for bacteria. Will await results of the stool cultures for now. No antimotility drug until results of the Clostridium difficile (C diff) panel has been obtained. 8. History of obstructive sleep apnea, obesity. At risk for complicating care. Outpatient followup with his physician. 9. Reflux. Continue on proton pump inhibitor (PPI). 10. BPH. Continue on Flomax. 11. Code status is a FULL CODE. 12. Diet is renal/consistent carbohydrate diet. 13. Deep vein thrombosis (DVT) prophylaxis with compression stockings. MTDD
[2019-06-05 00:35] VITALS: BP 121/71
--- NOTE | 2019-06-05 01:00 | REPVR ---
PROCEDURE INFORMATION: Exam: CT Cervical Spine Without Contrast Exam date and time: 06/04/2019 11:15 PM Age: 59 years old Clinical indication: Injury or trauma; Fall; Initial encounter; Concussion /head injury; Additional info: Fell off the porch, neck pain TECHNIQUE: Imaging protocol: Computed tomography images of the cervical spine without contrast. Radiation optimization: All CT scans at this facility use at least one of these dose optimization techniques: automated exposure control; mA and/or kV adjustment per patient size (includes targeted exams where dose is matched to clinical indication); or iterative reconstruction. COMPARISON: CR SPINE CERVICAL COMPL 05/10/2017 3:26 PM FINDINGS: Vertebrae: Mild endplate degenerative changes at other levels. No acute fracture or malalignment. Discogenic degenerative changes with small posterior disc bulge at C5-C6 causing mild central spinal stenosis. Soft tissues: Unremarkable. Lungs: Lung apices are normal. IMPRESSION: 1. No acute fracture or malalignment. 2. Degenerative spondylosis with mild central spinal canal stenosis at C5-C6. Electronically signed by: Jefe Baires On 06/05/2019 00:59:41 AM
[2019-06-05] MEDS: HumaLOG INSULIN (NovoLOG) PER UNIT SC SCH ×5 (01:14→20:48)
[2019-06-05] MEDS: GABAPENTIN 300 MG CAP PO SCH ×4 (01:21→20:52)
[2019-06-05 01:27] LABS: BLOOD UREA NITROGEN 49 MG/DL (7-18); CALCIUM LEVEL 8.5 MG/DL (8.8-10.2); CARBON DIOXIDE LEVEL 23 MEQ/L (21-32); CHLORIDE LEVEL 106 MEQ/L (98-107); CREATININE FOR GFR 2.95 MG/DL (0.70-1.30); GLOMERULAR FILTRATION RATE 23.2 (>49); GLUCOSE, FASTING 140 MG/DL (70-100); POTASSIUM SERUM 4.5 MEQ/L (3.5-5.1); SODIUM LEVEL 140 MEQ/L (136-145)
--- NOTE | 2019-06-05 01:57 | REP ---
Clinical: Weakness and chest pain . Comparison: 06/26/2018 . Technique: PA and lateral. Findings: The mediastinum and cardiac silhouette are normal. The lung hernandez are clear and without acute consolidation, effusion, or pneumothorax. The skeletal structures are intact and normal. Impression: 1. No acute cardiopulmonary process. No focal consolidation or effusion. Electronically Signed by Luca Sewell MD 06/05/2019 01:48 A
[2019-06-05 02:41] LABS: HEMATOCRIT 43.8 % (42.0-52.0); MEAN CORPUSCULAR HEMOGLOBIN 30.4 pg (27.0-33.0); MEAN CORPUSCULAR HGB CONC 32.6 g/dl (32.0-36.5); PLATELET COUNT, AUTOMATED 180 10^3/uL (150-450); RED BLOOD COUNT 4.71 10^6/uL (4.30-6.10); WHITE BLOOD COUNT 8.3 10^3/uL (4.0-10.0)
[2019-06-05 03:04] LABS: HEMOGLOBIN 14.3 g/dl (13.5-17.5)
[2019-06-05 03:05] LABS: BLOOD UREA NITROGEN 47 MG/DL (7-18); CALCIUM LEVEL 7.5 MG/DL (8.8-10.2); CARBON DIOXIDE LEVEL 20 MEQ/L (21-32); CHLORIDE LEVEL 109 MEQ/L (98-107); CK-MB VALUE MASS < 1.0 NG/ML (<3.6); CPK CREATINE PHOSPHOKINASE 52 U/L (39-308); CREATININE FOR GFR 2.83 MG/DL (0.70-1.30); GLOMERULAR FILTRATION RATE 24.3 (>49); GLUCOSE, FASTING 129 MG/DL (70-100); MB/CK RELATIVE INDEX 1.92 (< OR =4); SODIUM LEVEL 140 MEQ/L (136-145); TROPONIN I < 0.02 NG/ML (< 0.10)
[2019-06-05 04:00] VITALS: BP 120/79
[2019-06-05 05:21] LABS: MALB URINE SIEMENS 96.3 MG/L; MAU/CREAT RATIO 38.3 MCG/MG (0.0-30.0)
[2019-06-05] MEDS ORDERED: SODIUM BICARBONATE 75 MEQ in NS 0.45% 1,000 ML IV SCH (06:00)
[2019-06-05 07:45] VITALS: BP 142/92
[2019-06-05] MEDS: allopurinoL 300 MG TAB PO SCH (08:09)
[2019-06-05] MEDS: OMEPRAZOLE 20 MG CAP PO SCH (08:09)
[2019-06-05] MEDS: TAMSULOSIN 0.4 MG CAP PO SCH (08:09)
[2019-06-05 11:42] VITALS: BP 133/83
[2019-06-05 12:27] LABS: CALCIUM LEVEL 8.1 MG/DL (8.8-10.2); CREATININE FOR GFR 1.94 MG/DL (0.70-1.30); GLOMERULAR FILTRATION RATE 37.6 (>49); POTASSIUM SERUM 3.6 MEQ/L (3.5-5.1)
--- NOTE | 2019-06-05 13:37 | IPNPDOC ---
Text Note Date of Service The patient was seen on 06/05/19. NOTE Subjective: Patient stated that he is doing better today. No any acute events overnight. Patient denies fever, chills, nausea, vomiting, diarrhea or dysuria VITAL SIGNS: Please see below. GENERAL: awake, alert, NAD HEENT: NCAT, anicteric sclera, LINDSEY NECK: supple, no JVD CARDIOVASCULAR EXAMINATION: NS1S2, regular rate/rhythm RESPIRATORY EXAMINATION: CTA b/l, no wheezes/rales/rhonchi ABDOMINAL EXAMINATION: positive bowel sounds x 4, NT EXTREMITIES: no cyanosis, clubbing, edema SKIN: warm, no rashes. NEUROLOGICAL EXAMINATION: AAO x 3, no motor/sensory deficits PSYCHIATRIC EXAMINATION: calm, normal affect ASSESSMENT AND PLAN: Patient is 59 years old male with past medical history of diabetes, hypertension, hyperlipidemia, obstructive sleep apnea presented hospital with hyperglycemia, lactic acidosis and hypotension Hypotension Most likely secondary to dehydration due to hyperglycemia and antihypertensive medication Resolved after IV fluid In the morning patient normotensive Hyperglycemia Most likely due to poorly controlled diabetes I will check HbA1c Insulin sliding scale Glucose levels under control Lactic acidosis Most likely due to metformin I will hold oral antidiabetic diabetes medication Type 2 diabetes See above Hypertension Blood pressures under control I will hold his antihypertensive medications for now Proximal muscle leg weakness Could be Secondary to diabetes neuropathy or due to myopathy Will check aldolase level. Patient denied any weight loss recently ESR, CPK within normal limit, TSH negative Follow-up with neurologist in the outpatient settings for EMG if bloodwork negative WESLEY Secondary to volume contraction Continue to monitor VS,Fishbone, I+O VS, Fishbone, I+O Laboratory Tests 06/04/19 20:33 06/05/19 00:50 06/05/19 02:29 06/05/19 11:52 Vital Signs Date Time Temp Pulse Resp B/P (MAP) Pulse Ox O2 Delivery O2 Flow Rate FiO2 06/05/19 11:42 97.7 81 20 133/83 (100) 94 Room Air I&O- Last 24 Hours up to 6 AM 06/05/19 06:00 Intake Total 5240 ml Output Total 600 ml Balance 4640 ml SHEFALI ROBB DO Jun 05, 2019 13:37
[2019-06-05 16:00] VITALS: BP 130/76
[2019-06-05 20:00] VITALS: BP 136/78
[2019-06-06] VITALS: BP 127/83
[2019-06-06 04:00] VITALS: BP 145/96
[2019-06-06 05:50] LABS: HEMATOCRIT 44.6 % (42.0-52.0); MEAN CORPUSCULAR HEMOGLOBIN 31.1 pg (27.0-33.0); MEAN CORPUSCULAR HGB CONC 33.6 g/dl (32.0-36.5); MEAN CORPUSCULAR VOLUME 92.3 fl (80.0-96.0); PLATELET COUNT, AUTOMATED 175 10^3/uL (150-450); RED BLOOD COUNT 4.83 10^6/uL (4.30-6.10); WHITE BLOOD COUNT 6.8 10^3/uL (4.0-10.0)
[2019-06-06 06:21] LABS: CALCIUM LEVEL 8.5 MG/DL (8.8-10.2); CREATININE FOR GFR 1.34 MG/DL (0.70-1.30); GLOMERULAR FILTRATION RATE 57.7 (>49); POTASSIUM SERUM 4.1 MEQ/L (3.5-5.1)
[2019-06-06 08:00] VITALS: BP 136/89
[2019-06-06] MEDS: allopurinoL 300 MG TAB PO SCH (08:19)
[2019-06-06] MEDS: GABAPENTIN 300 MG CAP PO SCH ×2 (08:19→15:56)
[2019-06-06] MEDS: OMEPRAZOLE 20 MG CAP PO SCH (08:19)
[2019-06-06] MEDS: HumaLOG INSULIN (NovoLOG) PER UNIT SC SCH ×2 (08:20→11:59)
[2019-06-06] MEDS: TAMSULOSIN 0.4 MG CAP PO SCH (08:20)
[2019-06-06 10:58] LABS: HEPATITIS A ANTIBODY IGM NEGATIVE (NEGATIVE); HEPATITIS B CORE ANTIBODY IGM NEGATIVE (NEGATIVE); HEPATITIS B SURFACE ANTIGEN NEGATIVE (NEGATIVE); HEPATITIS C VIRUS ABY INDEX 0.1 INDEX (<0.8)
[2019-06-06 12:00] VITALS: BP 130/86
[2019-06-06] MEDS ORDERED: LANTINJ4 SC (12:00)
[2019-06-06] MEDS ORDERED: METF-791 PO (12:00)
--- NOTE | 2019-06-06 16:28 | DS.PDOC ---
Discharge Summary General Date of Admission Jun 04, 2019 at 21:56 Date of Discharge 06/06/19 Discharge Summary PROCEDURES PERFORMED DURING STAY: [None]. ADMITTING DIAGNOSES: Hypotension Hyperglycemia Lactic acidosis Type 2 diabetes Proximal muscle leg weakness Hypertension WESLEY DISCHARGE DIAGNOSES: Hypotension Hyperglycemia Lactic acidosis Type 2 diabetes Proximal muscle leg weakness Hypertension WESLEY COMPLICATIONS/CHIEF COMPLAINT: Acute Kidney Injury. HISTORY OF PRESENT ILLNESS: A 59-year-old male with diabetes, hypertension, hyperlipidemia, obstructive sleep apnea (JACOB), not on continuous positive airway pressure (CPAP), diverticulitis with two bowel movement daily, usually the second one being watery, dyslipidemia, depression, reflux, uric acid nephrolithiasis, chronic kidney disease stage III, presented to the emergency room with complaints of uncontrolled glucose and "stumbling." Patient was found to be hypotensive with systolic pressure of 85 and lactic acidosis. HOSPITAL COURSE: During hospital stay following issue addressed Hypotension Most likely secondary to dehydration due to hyperglycemia and antihypertensive medication Resolved after IV fluid Hyperglycemia Most likely due to poorly controlled diabetes HbA1c 9 Patient received treatment with Insulin sliding scale Recommended Lantus 10 units daily at bedtime in the outpatient settings Lactic acidosis Most likely due to metformin I held oral antidiabetic diabetes medication Type 2 diabetes See above Hypertension Blood pressures under control I held his antihypertensive medications for now Proximal muscle leg weakness Could be Secondary to diabetes neuropathy or due to myopathy aldolase level pending. Patient denied any weight loss recently ESR, CPK within normal limit, TSH negative Follow-up with neurologist in the outpatient settings for EMG if bloodwork negative WESLEY Secondary to volume contraction Continue to monitor DISCHARGE MEDICATIONS: Please see below. ALLERGIES: Please see below. PHYSICAL EXAMINATION ON DISCHARGE: VITAL SIGNS: Please see below. VITAL SIGNS: Please see below. GENERAL: awake, alert, NAD HEENT: NCAT, anicteric sclera, LINDSEY NECK: supple, no JVD CARDIOVASCULAR EXAMINATION: NS1S2, regular rate/rhythm RESPIRATORY EXAMINATION: CTA b/l, no wheezes/rales/rhonchi ABDOMINAL EXAMINATION: positive bowel sounds x 4, NT EXTREMITIES: no cyanosis, clubbing, edema SKIN: warm, no rashes. NEUROLOGICAL EXAMINATION: AAO x 3, no motor/sensory deficits PSYCHIATRIC EXAMINATION: calm, normal affect LABORATORY DATA: Please see below. PROGNOSIS: Fair ACTIVITY: [As tolerated]. DIET: Diabetes DISCHARGE INSTRUCTIONS: Check glucose before each meal ITEMS TO FOLLOWUP ON ON OUTPATIENT: Follow-up with PCP DISCHARGE CONDITION: [Stable]. TIME SPENT ON DISCHARGE: Greater than 20 minutes. Vital Signs/I&Os Vital Signs Date Time Temp Pulse Resp B/P (MAP) Pulse Ox O2 Delivery O2 Flow Rate FiO2 06/06/19 12:00 96.6 70 20 130/86 (101) 93 Room Air I&O- Last 24 Hours up to 6 AM 06/06/19 06:00 Intake Total 590 ml Output Total 3040 ml Balance -2450 ml Laboratory Data Labs 24H Laboratory Tests 2 06/05/19 16:22: Bedside Glucose (Misc Panel) 165H 06/05/19 20:47: Bedside Glucose (Misc Panel) 191H 06/06/19 05:27: Nucleated Red Blood Cells % (auto) 0.0, Anion Gap 6L, Glomerular Filtration Rate 57.7, Calcium Level 8.5L 06/06/19 09:23: Clostridium difficile [id number] , Clostridium difficile Toxin (PCR) 06/06/19 11:42: Bedside Glucose (Misc Panel) 239H CBC/BMP Laboratory Tests 06/06/19 05:27 FSBS Laboratory Tests Test 06/05/19 16:22 06/05/19 20:47 06/06/19 11:42 Range/Units Bedside Glucose (Misc Panel) 165 191 239 80-115 MG/DL Microbiology Microbiology 06/05/19 Group A Streptococcus Screen (SET[facility]) - Final, Complete 06/05/19 Group A Streptococcus Screen ([facility]H) - Final, Complete Discharge Medications Scheduled Allopurinol (Zyloprim) 300 Mg Tablet, 300 MG PO DAILY, (Reported) Amlodipine Besylate (Amlodipine Besylate) 5 Mg Tab, 5 MG PO DAILY, (Reported) Calcium Polycarbophil (Fibercon) 625 Mg Tablet, 2,500 MG PO BID, (Reported) Dulaglutide (Trulicity) 0.75 Mg/0.5 Ml Pen.injctr, 0.75 MG SC QWEEK, (Reported) SUNDAYS Gabapentin (Gabapentin) 600 Mg Tablet, 600 MG PO TID, (Reported) Hydrochlorothiazide (Hydrochlorothiazide) 50 Mg Tablet, 50 MG PO DAILY, (Reported) Insulin Glargine,Hum.rec.anlog (Lantus Solostar) 100 Unit/1 Ml Insuln.pen, 10 UNIT SC QPM Irbesartan (Irbesartan) 300 Mg Tab, 300 MG PO DAILY, (Reported) Metformin HCl (Metformin HCl ER) 500 Mg Tab.er.24h, 500 MG PO BID Omeprazole (Omeprazole) 40 Mg Cap, 40 MG PO DAILY, (Reported) Tamsulosin HCl (Flomax) 0.4 Mg Capsule, 0.4 MG PO DAILY, (Reported) Scheduled PRN Acetaminophen (Acetaminophen) 500 Mg Tablet, 500 MG PO Q4H PRN for PAIN, (Reported) Oxycodone HCl/Acetaminophen (Oxycodone-Acetaminophen 5-325) 1 Each Tablet, 1 TAB PO Q6H PRN for PAIN, (Reported) Allergies Coded Allergies: adhesive (Verified Allergy, Intermediate, rash and blisters ie bandaids tape, 07/20/18) canagliflozin (Verified Allergy, Intermediate, rash, 07/20/18) latex (Verified Adverse Reaction, Mild, sensitivity, 07/20/18) SHEFALI ROBB DO Jun 06, 2019 16:28
[2019-06-07 00:06] LABS: ANTINUCLEAR ANTIBODIES DIRECT Negative (Negative)
[2019-06-07] MEDS ORDERED: BD P31MI2 SC (12:02)
--- NOTE | 2019-06-07 20:45 | ECHO ---
DATE OF PROCEDURE: 06/05/2019 DATE OF : 1960 AGE: 59 REFERRING PROVIDER: Dr. Sara Todd PATIENT LOCATION: Room 3229 REASON FOR THE STUDY: Shortness of breath. 2D MEASUREMENTS: IVS: 1.1 cm LV: 4.5 cm LVPW: 1.2 cm LA: 4.1 cm Aorta: 3.3 cm DOPPLER MEASUREMENTS: Peak velocity across the aortic valve: 1.4 meters per second Peak velocity across the LVOT: 0.95 meters per second Mitral E: 0.64, Mitral A: 0.90 with a ratio of 0.7 Maximum tricuspid valve velocity: 3.4 meters per second 2D COMMENTS: 1. Normal left ventricular size, wall thickness, and normal global left ventricular systolic function. The estimated left ventricular systolic ejection fraction is 60-65%. 2. Mildly enlarged left atrium. The right atrium also appeared to be mildly enlarged in limited views. The right ventricular free wall was not well visualized and appeared to be minimally enlarged in limited views. 3. The atrial septum appeared to be normal without evidence of defect or shunt. 4. Normal aortic root. 5. No pericardial effusion seen. 6. Mildly calcified aortic valve with normal leaflet excursion. Mildly calcified mitral annulus with normal anterior mitral valve leaflet motion. Normal tricuspid valve and pulmonic valve. The proximal pulmonary artery branches also appeared to be normal in size. 7. The inferior vena cava was not well visualized. DOPPLER: It detects trace mitral regurgitation, mild tricuspid regurgitation. The calculated pulmonary artery systolic pressure varies between 40-50 mmHg. Abnormal relaxation pattern was noted across the mitral valve leaflets as well as the mitral valve annulus consistent with features of grade 1 left ventricular diastolic dysfunction. IMPRESSION: 1. Normal global left ventricular systolic function. There are some features of grade 1 left ventricular diastolic dysfunction manifested by abnormal relaxation. 2. Aortic valve sclerosis without stenosis or aortic regurgitation. 3. Mitral annulus calcification with a mildly enlarged left atrium and trace mitral regurgitation. 4. Mild tricuspid regurgitation with moderate pulmonary hypertension. The right heart chambers appear to be mildly enlarged in limited views. 5. Global longitudinal strain/GLS was calculated at -16.8%, relatively normal.
[2019-06-08 00:06] LABS: Chitobioside Carbohydrat (ACCA 5 units (0-90); Laminaribioside Carbohyd (ALCA 9 units (0-60); Mannobioside Carbohydrat (AMCA 6 units (0-100); Saccharomyces cerevisiae IgG A 14 units (0-50)
== END 2019-06-06 16:07 | disposition home or self-care (01) | DRG 422 ==
LOC: M ED 20:03 → M ED INP 21:56 → ENRESERVTM 06-05 00:16 → ENRESERVDT 06-05 00:16 → M PCU 06-05 00:55
PROVIDERS: ADMIT General Practice; ATTEND Internal Medicine
DX: E86.0 Dehydration (principal); I95.9 Hypotension, unspecified; E11.22 Type 2 diabetes mellitus with diabetic chronic kidney disease; E87.2 Acidosis; N17.9 Acute kidney failure, unspecified; E11.65 Type 2 diabetes mellitus with hyperglycemia; N18.3 Chronic kidney disease, stage 3 (moderate); I12.9 Hypertensive chronic kidney disease with stage 1 through stage 4 chronic kidney disease, or unspecified chronic kidney disease; E78.5 Hyperlipidemia, unspecified; G47.33 Obstructive sleep apnea (adult) (pediatric); F32.9 Major depressive disorder, single episode, unspecified; K58.0 Irritable bowel syndrome with diarrhea; K21.9 Gastro-esophageal reflux disease without esophagitis; N40.0 Benign prostatic hyperplasia without lower urinary tract symptoms; Z87.442 Personal history of urinary calculi; Z91.048 Other nonmedicinal substance allergy status; Z88.8 Allergy status to other drugs, medicaments and biological substances; Z79.899 Other long term (current) drug therapy; Z79.84 Long term (current) use of oral hypoglycemic drugs; M62.81 Muscle weakness (generalized)

== ENCOUNTER → 2019-07-11 | Outpatient (REF) | payer BC ==
[~2019-07-11] MED LIST changes: +ACET500T15 PO; +AMLO1TAB24 PO; -AMLO5TAB6 PO; +ASPI81CH33 PO; +BD P31MI2 SC; +FIBE625T PO; +GABA600T4 PO; -GLYB5TA PO; +GLYB5TAB6 PO; +HYDR-3490 PO; -HYDR25TAB PO; +LANTINJ4 SC; +METF-838 PO; +METF10004 PO; +TRUL10IN SC; +VIAG100T PO; +ZYLO300T6 PO
== END ==
LOC: M SMT 10:15
PROVIDERS: ATTEND Nurse Practitioner Family
DX: N20.0 Calculus of kidney (principal)

== ENCOUNTER → 2019-07-14 | Outpatient (CLI) | payer BC ==
[~2019-07-14] MED LIST changes: -AMLO1TAB24 PO; +AMLO5TAB6 PO; -ASPI81CH33 PO; +GLYB5TA PO; -GLYB5TAB6 PO; -HYDR-3490 PO; +HYDR25TAB PO; -VIAG100T PO
[2019-07-14 09:28] LABS: HEMATOCRIT 48.6 % (42.0-52.0); HEMOGLOBIN 16.2 g/dl (13.5-17.5); MEAN CORPUSCULAR HEMOGLOBIN 30.1 pg (27.0-33.0); MEAN CORPUSCULAR HGB CONC 33.3 g/dl (32.0-36.5); MEAN CORPUSCULAR VOLUME 90.3 fl (80.0-96.0); PLATELET COUNT, AUTOMATED 197 10^3/uL (150-450); RED BLOOD COUNT 5.38 10^6/uL (4.30-6.10); WHITE BLOOD COUNT 6.4 10^3/uL (4.0-10.0)
[2019-07-14 09:49] LABS: MALB URINE SIEMENS 23.7 MG/L; MAU/CREAT RATIO 23.4 MCG/MG (0.0-30.0)
[2019-07-14 10:11] LABS: HEMOGLOBIN A1c 9.7 %
[2019-07-14 10:44] LABS: ALBUMIN 3.6 GM/DL (3.2-5.2); BILIRUBIN,TOTAL 0.6 MG/DL (0.2-1.0); CALCIUM LEVEL 8.9 MG/DL (8.8-10.2); CHOLESTEROL RISK RATIO 8.59 (<5); CREATININE FOR GFR 1.33 MG/DL (0.70-1.30); GLOMERULAR FILTRATION RATE 58.2 (>49); POTASSIUM SERUM 4.1 MEQ/L (3.5-5.1); TOTAL PROTEIN 6.7 GM/DL (6.4-8.2)
== END ==
LOC: M LAB 08:50
PROVIDERS: ATTEND Family Medicine
DX: E11.9 Type 2 diabetes mellitus without complications (principal)

== ENCOUNTER → 2019-07-31 | Outpatient (CLI) | payer BC ==
--- NOTE | 2019-07-31 14:31 | REP ---
Clinical: Abdominal pain. History of nephrolithiasis. Technique: Axial noncontrast images from the lung bases to the pubic symphysis with coronal and sagittal re-formations. Comparison: 09/09/2018. Findings: The lung bases include one point 1 cm calcified granuloma in the left lower lobe. Liver, spleen, pancreas, and bilateral adrenal glands are normal for noncontrast evaluation. Cholelithiasis noted without acute cholecystitis. Kidneys are normal and without acute perinephric stranding, hydroureteronephrosis or nephroureterolithiasis. The enteric system demonstrates evidence for prior partial sigmoid resection. No evidence for bowel obstruction or acute inflammatory process. Normal appendix identified in the right lower quadrant. Pelvis demonstrates prostatomegaly with mass effect on the base of the bladder. Evidence for prior ventral hernia repair. No ascites. No free air. No adenopathy. Atherosclerotic changes to the aorta and vasculature without aneurysm or dissection. Musculoskeletal structures demonstrate age-related degenerative changes without focal osseous abnormality. Impression: 1. Cholelithiasis. 2. Normal urinary tract system for noncontrast evaluation. 3. Prostatomegaly with mass effect on the base of the bladder. 4. No ascites, focal inflammatory stranding, or adenopathy. Electronically Signed by Luca Sewell MD 07/31/2019 02:23 P
== END ==
LOC: M RAD 12:50
PROVIDERS: ATTEND Nurse Practitioner Family
DX: R10.9 Unspecified abdominal pain (principal); Z87.442 Personal history of urinary calculi; K80.20 Calculus of gallbladder without cholecystitis without obstruction

== ENCOUNTER 2019-08-22 16:58 | Emergency (ER) | payer BC ==
[~2019-08-22] VITALS: Ht 185.4 cm; Wt 111.4 kg
[~2019-08-22 16:58] MED LIST changes: +AMLO1TAB24 PO; -AMLO5TAB6 PO
[2019-08-22] MEDS ORDERED: ASPI81CH33 PO (17:34)
[2019-08-22] MEDS ORDERED: GI COCKTAIL 50ML BTL(HYOSCYAMINE/MAALOX/LIDOCAINE VISCOUS)(1:3:1) PO ONE (17:45)
[2019-08-22 17:48] LABS: BASO % 0.5 % (0.0-1.0); EOS # 0.2 10^3/uL (0.0-0.5); EOS % 3.3 % (0.0-3.0); HEMATOCRIT 48.4 % (42.0-52.0); HEMOGLOBIN 16.1 g/dl (13.5-17.5); LYMPH # 1.7 10^3/uL (1.5-5.0); LYMPH % 23.6 % (24.0-44.0); MEAN CORPUSCULAR HEMOGLOBIN 29.8 pg (27.0-33.0); MEAN CORPUSCULAR HGB CONC 33.3 g/dl (32.0-36.5); MEAN CORPUSCULAR VOLUME 89.6 fl (80.0-96.0); MONO # 0.5 10^3/uL (0.0-0.8); MONO % 7.1 % (0.0-5.0); NEUTROPHILS # 4.8 10^3/uL (1.5-8.5); NEUTROPHILS % 64.8 % (36.0-66.0); PLATELET COUNT, AUTOMATED 201 10^3/uL (150-450); WHITE BLOOD COUNT 7.4 10^3/uL (4.0-10.0)
[2019-08-22 17:58] LABS: INR 0.97; PROTHROMBIN TIME 12.6 SECONDS (11.8-14.0)
[2019-08-22] MEDS ORDERED: ASPIRIN 81 MG CHEW TABLET PO ONE (18:15)
[2019-08-22 18:16] LABS: ALBUMIN 3.8 GM/DL (3.2-5.2); BILIRUBIN,DIRECT 0.1 MG/DL (0.0-0.2); BILIRUBIN,TOTAL 0.5 MG/DL (0.2-1.0); CALCIUM LEVEL 8.7 MG/DL (8.8-10.2); CREATININE FOR GFR 1.45 MG/DL (0.70-1.30); GLOMERULAR FILTRATION RATE 52.7 (>49); POTASSIUM SERUM 4.2 MEQ/L (3.5-5.1); TOTAL PROTEIN 7.2 GM/DL (6.4-8.2)
--- NOTE | 2019-08-22 19:58 | REP ---
Single view chest: 08/22/2019. Indication: Chest pain. Comparison: 06/12/2019. Findings: The lungs are clear. There is no pleural effusion or pneumothorax. The cardiac silhouette is within normal anatomic size. Right acromioclavicular chronic separation is redemonstrated. Impression: Clear lungs. Electronically Signed by Cholo Greer DO 08/22/2019 07:49 P
[2019-08-23] VITALS: BP 140/78
--- NOTE | 2019-08-23 00:39 | ECGEPIP ---
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
--- NOTE | 2019-08-23 00:49 | ECGEPIP ---
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
[2019-10-26] MEDS ORDERED: VIAG100T PO (11:11)
== END 2019-08-23 00:27 | disposition home or self-care (01) ==
LOC: M ED 16:58
DX: R07.89 Other chest pain (principal); R06.02 Shortness of breath; E11.9 Type 2 diabetes mellitus without complications; I12.9 Hypertensive chronic kidney disease with stage 1 through stage 4 chronic kidney disease, or unspecified chronic kidney disease; N18.3 Chronic kidney disease, stage 3 (moderate); E78.5 Hyperlipidemia, unspecified; G47.33 Obstructive sleep apnea (adult) (pediatric); Z79.899 Other long term (current) drug therapy; Z79.82 Long term (current) use of aspirin; Z79.4 Long term (current) use of insulin; Z88.0 Allergy status to penicillin; Z91.040 Latex allergy status; Z91.048 Other nonmedicinal substance allergy status

== ENCOUNTER → 2019-09-06 | Outpatient (CLI) | payer BC, OTHER ==
[~2019-09-06] MED LIST changes: +ASPI81CH33 PO; +VIAG100T PO
== END ==
LOC: M LABSMTC 10:10
PROVIDERS: ATTEND Physical Medicine & Rehabilitation
DX: Z20.828 Contact with and (suspected) exposure to other viral communicable diseases (principal); Z11.59 Encounter for screening for other viral diseases

== ENCOUNTER → 2019-11-04 | Outpatient (CLI) | payer OTHER | LOC: M LABSMTC 09:51 | PROVIDERS: ATTEND Anesthesiology | DX: Z01.812 Encounter for preprocedural laboratory examination (principal); Z20.828 Contact with and (suspected) exposure to other viral communicable diseases | CPT/HCPCS: C9803; U0003 ==

== ENCOUNTER 2019-11-09 07:29 | Day surgery (SDC) | payer OTHER ==
[~2019-11-09] VITALS: Ht 185.4 cm; Wt 115.1 kg
[~2019-11-09 07:29] MED LIST changes: +LR 1,000 ML IV ONE; +MIDAZOLAM INJ 2MG/2ML VIAL (J2250 PER 1MG) IV SCH; +ceFAZolin SOD 2 GM in IV 1 EA IV ONE; +fentaNYL 100 MCG/2 ML INJECTION (J3010) IV SCH
[2019-11-09] MEDS ORDERED: ROPIvacaine 0.5% 30ML INJECTION (J2795 PER 1MG) ONE ×2 (07:30)
[2019-11-09] MEDS ORDERED: dexameTHASONE 10MG/1ML VIAL PRES.FREE (J1100 PER 1MG) ONE ×2 (07:30)
[2019-11-09] MEDS ORDERED: EPINEPHrine INJ 1 MG/ML 1ML AMP ONE (07:30)
[2019-11-09] MEDS ORDERED: LIDOCAINE 1% MDV 20ML VIAL ONE (07:30)
[2019-11-09] MEDS ORDERED: dexameTHASONE 4 MG/ML 1ML VIAL (J1100 PER 1MG) As Ordered ONE (09:11)
[2019-11-09] MEDS ORDERED: ROCURONIUM BROMIDE 50 MG/5 ML VIAL As Ordered ONE ×2 (09:11→09:41)
[2019-11-09] MEDS ORDERED: propofoL 200 MG/20 ML VIAL As Ordered ONE (09:11)
[2019-11-09] MEDS ORDERED: LIDOCAINE 2% 100MG/5ML SDV (FOR ANES.) As Ordered ONE (09:11)
[2019-11-09] MEDS ORDERED: ONDANSETRON 4MG/2ML VIAL As Ordered ONE (09:11)
[2019-11-09] MEDS ORDERED: MIDAZOLAM INJ 2MG/2ML VIAL (J2250 PER 1MG) As Ordered ONE (09:49)
[2019-11-09] MEDS ORDERED: fentaNYL 100 MCG/2 ML INJECTION (J3010) As Ordered ONE ×3 (09:49→14:52)
[2019-11-09] MEDS ORDERED: SUGAMMADEX SODIUM 500 MG/5 ML VIAL (BRIDION) As Ordered ONE (10:19)
[2019-11-09] MEDS ORDERED: EPINEPHrine 1MG/ML INJ 30ML MD-VIAL As Ordered ONE (11:08)
[2019-11-09] MEDS ORDERED: PHENYLephrine HCL 500 MCG/5 ML (100MCG/ML) SYRINGE (J2370) As Ordered ONE (11:51)
[2019-11-09] MEDS ORDERED: ePHEDrine SULFATE 25 MG/5 ML(5MG/ML) SYRINGE As Ordered ONE (11:54)
[2019-11-09] MEDS ORDERED: VASOPRESSIN INJ 20 UNITS/ML VIAL As Ordered ONE ×2 (11:58→13:24)
[2019-11-09] MEDS ORDERED: PHENYLEPHRINE 10MG/ML 1ML VIAL (J2370 PER 1) As Ordered ONE (12:42)
[2019-11-09] MEDS ORDERED: fentaNYL 100 MCG/2 ML INJECTION (J3010) IV PRN (15:30)
[2019-11-09] MEDS ORDERED: oxyCODONE 5MG TAB PO PRN (15:30)
[2019-11-09] MEDS ORDERED: LR 1,000 ML IV SCH ×2 (15:30)
[2019-11-09] MEDS ORDERED: ONDANSETRON 4MG/2ML VIAL IV PRN (15:30)
[2019-11-09 16:45] VITALS: BP 112/71
--- NOTE | 2019-11-15 11:17 | REP ---
RIGHT SHOULDER LIMITED STUDY 3-VIEWS HISTORY: Right shoulder procedural imaging. FLUOROSCOPY TIME: 5 seconds reported. FINDINGS: A sequence of three [id number] fluoroscopically obtained spot radiographs of the right shoulder document procedural imaging. YUMI
--- NOTE | 2019-11-16 13:07 | RO ---
DATE OF OPERATION: 11/09/2019 PREOPERATIVE DIAGNOSES: * Right shoulder acromioclavicular joint instability. * Right shoulder AC joint calcification. POSTOPERATIVE DIAGNOSES: * Right shoulder acromioclavicular joint instability. * Right shoulder AC joint calcification. PROCEDURES: * Right shoulder open revision distal clavicle excision. * Right shoulder open heterotopic bone excision. SURGEON: Dr. Olivier Dye ELASTIC YARN TWISTER HELPER: LUIS MIGUEL Haro ANESTHESIA: General with preoperative nerve block. IV FLUIDS: Lactated Ringer's. ESTIMATED BLOOD LOSS: 50 mL. IMPLANTS: None. SPECIMEN: Bone for pathology. CLOSURE: Nylon. PROCEDURE: The patient was identified in the preoperative holding area. The right shoulder was marked. He had symptoms of anterior to posterior instability. He had interscalene nerve block from anesthesia. He was brought to the operating room, placed supine on a well-padded OR table. General anesthesia induced. Examination under anesthesia revealed 140 degrees of forward flexion, about 45 degrees of external rotation with his arm at his side, about 70 degrees of external rotation with the shoulder at 90. He was then placed into the beachchair position. The head was secured. Venodyne boots to bilateral lower extremities for DVT prophylaxis. The right arm was prepped and draped in normal sterile fashion with ChloraPrep. Arm was secured to the Spider device. Time out was performed per hospital protocol. Eran Monge was present for the entire procedure and participated in all essential portions of the procedure. 15-blade was used to make a longitudinal incision from the coracoid to the distal clavicle about 2-3 cm medial to the joint. Full-thickness skin flaps were raised. The deltotrapezial fascia was then split with anterior and posterior full thickness flaps, subperiosteal elevation off the clavicle with Bovie cautery. There was a large piece of heterotopic bone within the anterior AC ligament and this was seen on preoperative x-ray and I was able to excise that in its entirety. This was sent to pathology. The posterior aspect of the distal clavicle had a sharp corner combined with the increased anterior to posterior instability may have been causing impingement on the spine of scapula so rongeur was used to contour the posterior aspect of the distal clavicle. The AC joint was then cleared out of all remaining scar tissue. The inferior surface of the clavicle was cleared off with cautery. We then proceeded with exposure of the coracoid. By palpation and blunt finger dissection I was able to feel the tip of the coracoid. [place] retractors were carefully positioned and Bovie cautery down onto the superior surface of the coracoid. The coracoid had a greater curvature than typical from medial to lateral. It also felt wider than typical on palpation. I then obtained intraoperative x-ray and placed Elk elevator in the medial and lateral aspect of the coracoid to ensure that I was in the correct position. This was confirmed. 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 Based on my intraoperative findings I felt that I was going to be unable to pass the coracoid passer from medial to lateral around the base of the coracoid. Secondly and more importantly I was highly concerned for neurovascular injury. I did call one of my partners for an intraoperative telephone consult to explain the situation and he agreed that the only surgical technique at this point that would likely work would be drilling through the coracoid into the clavicle such as an Arthrex dog bone technique. At this point I felt that the risk of further injury was unacceptably high if I proceeded with passing around the coracoid. No drilling was performed into the coracoid or clavicle, so he would have an intact bone for that procedure should it be necessary in the future. I then extensively irrigated the surgical field to help prevent recurrence of heterotopic bone. #2 FiberWire suture was then used to repair the deep deltotrapezial fascia from medial to lateral. This was passed in [id number] fashion but not tied, there were four sutures. I then tied from medial to lateral securing the deep deltotrapezial fascia onto the clavicle. I then re- irrigated and closed the superficial deltotrapezial fascia with running #0 Vicryl suture. The subcuticular closure with 2-0 Vicryl and running nylon. Sterile dressing was applied. He was placed into a sling. He was extubated and transferred to PACU in stable condition. YUMI
== END 2019-11-09 16:50 | disposition home or self-care (01) ==
LOC: M SDC 07:29
PROVIDERS: ATTEND Orthopaedic Surgery
DX: M25.311 Other instability, right shoulder (principal); M61.411 Other calcification of muscle, right shoulder; I10 Essential (primary) hypertension; E11.9 Type 2 diabetes mellitus without complications; K57.92 Diverticulitis of intestine, part unspecified, without perforation or abscess without bleeding; K21.9 Gastro-esophageal reflux disease without esophagitis; F41.9 Anxiety disorder, unspecified; F32.9 Major depressive disorder, single episode, unspecified; N40.0 Benign prostatic hyperplasia without lower urinary tract symptoms; Z79.899 Other long term (current) drug therapy; Z79.84 Long term (current) use of oral hypoglycemic drugs; G47.30 Sleep apnea, unspecified
CPT/HCPCS: 23120; 36415; 64415; 76000; 86850; 86900; 86901; 88304; 88311; C1713; C1762; J0171; J0690; J1100; J2250; J2370; J2405; J2795; J3010

== ENCOUNTER → 2020-01-21 | Outpatient (CLI) | payer SELFPAY ==
[~2020-01-21] MED LIST changes: -LR 1,000 ML IV ONE; -MIDAZOLAM INJ 2MG/2ML VIAL (J2250 PER 1MG) IV SCH; -ceFAZolin SOD 2 GM in IV 1 EA IV ONE; -fentaNYL 100 MCG/2 ML INJECTION (J3010) IV SCH
== END ==
LOC: M LABSMTC 15:24
PROVIDERS: ATTEND Pediatrics
DX: Z20.828 Contact with and (suspected) exposure to other viral communicable diseases (principal)

== ENCOUNTER → 2020-05-02 | Outpatient (CLI) | payer MEDICARE ==
[~2020-05-02] MED LIST changes: -GLYB5TA PO; +GLYB5TAB6 PO; +HYDR-3490 PO; -HYDR25TAB PO
--- NOTE | 2020-05-02 17:26 | REP ---
INDICATION: KIDNEY STONES. COMPARISON: Comparison CT study July 31, 2019 and comparison sonography June 04, 2019.. TECHNIQUE: Urinary tract sonography. FINDINGS: Prostate is enlarged with dimensions of 6.2 x 5.5 x 5.0 cm, calculated volume 89 mL. Emptying ureteral jets are observed on color Doppler interrogation of the bladder bilaterally. Bladder paul are smooth. Incidental note is made of cholelithiasis the largest stone measuring 1.8 cm in greatest diameter in the gallbladder. Renal cortical echogenicity pattern is normal bilaterally and contours are smooth. There is a 0.7 cm cyst in the lower pole left kidney. No other renal cyst is seen. No hydronephrosis or mass is observed on either side.. The right kidney measures 12.2 x 6.6 x 5.0 cm. Left renal dimensions are 12.0 x 6.0 x 5.6 cm. No intrarenal calculus is seen on either side. IMPRESSION: Cholelithiasis. Enlarged prostate gland. No hydronephrosis seen. Small cyst lower pole left kidney. Otherwise negative.. <Electronically signed by Sumit Wells > 05/02/20 [id number]
== END ==
LOC: M RAD 16:20
PROVIDERS: ATTEND Nurse Practitioner Family
DX: K80.20 Calculus of gallbladder without cholecystitis without obstruction (principal); N40.0 Benign prostatic hyperplasia without lower urinary tract symptoms; N28.1 Cyst of kidney, acquired

== ENCOUNTER → 2020-08-16 | Outpatient (CLI) | payer OTHER ==
[~2020-08-16] MED LIST changes: +OMEP40CA4 PO; -OMEP40CA97 PO
--- NOTE | 2020-08-16 16:16 | REPVR ---
PROCEDURE INFORMATION: Exam: MR Cervical Spine Without Contrast Exam date and time: 08/16/2020 3:15 PM Age: 60 years old Clinical indication: Pain; Cervicalgia; Additional info: Spinal stenosis cervical region TECHNIQUE: Imaging protocol: Multiplanar magnetic resonance images of the cervical spine without contrast. COMPARISON: CT Spine,cervical w/o contrast 06/05/2019 12:41 AM FINDINGS: Cervical vertebral body heights are intact. Straightening of the cervical lordosis. The dens is intact. No abnormal marrow signal. No cord compression, expansion, or abnormal cord signal. Visualized structures of the posterior fossa are unremarkable. Soft tissues are unremarkable. C2-C3: Small central disc protrusion causing focal mild canal narrowing. No significant foraminal narrowing. C3-C4: No significant canal or foraminal narrowing. C4-C5: Posterior disc protrusion and uncovertebral spurring cause moderate canal narrowing with effacement of the anterior thecal sac. Moderate right and severe left foraminal narrowing. C5-C6: Uncovertebral spurring causes moderate right and mild left foraminal narrowing. No significant canal narrowing. C6-C7: Posterior disc protrusion causes mild canal narrowing and mild bilateral foraminal narrowing. C7-T1: No significant canal or foraminal narrowing. IMPRESSION: Multilevel spondylotic changes of the cervical spine, most pronounced at C4-C5, as detailed above. Electronically signed by: Oswaldo Parson On 08/16/2020 16:15:29 PM
== END ==
LOC: M RAD 15:09
PROVIDERS: ATTEND Physician Assistant
DX: M48.02 Spinal stenosis, cervical region (principal)

== ENCOUNTER → 2020-09-05 | Outpatient (CLI) | payer MEDICARE, OTHER ==
[2020-09-05 10:27] LABS: BLOOD UREA NITROGEN 26 MG/DL (7-18); CARBON DIOXIDE LEVEL 29 MEQ/L (21-32); CHLORIDE LEVEL 100 MEQ/L (98-107); CREATININE FOR GFR 1.27 MG/DL (0.70-1.30); GLOMERULAR FILTRATION RATE > 60.0 (>49); GLUCOSE, FASTING 220 MG/DL (70-100); POTASSIUM SERUM 4.1 MEQ/L (3.5-5.1); SODIUM LEVEL 136 MEQ/L (136-145)
--- NOTE | 2020-09-06 18:44 | ECGEPIP ---
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
== END ==
LOC: M LAB 08:47
PROVIDERS: ATTEND Orthopaedic Surgery
DX: Z01.818 Encounter for other preprocedural examination (principal)

== ENCOUNTER → 2021-05-08 | Outpatient (CLI) | payer MEDICARE | LOC: M RAD 11:33 | PROVIDERS: ATTEND Physician Assistant | DX: N20.0 Calculus of kidney (principal) ==

== ENCOUNTER 2021-05-16 13:05 | Emergency (ER) | payer MEDICARE ==
[~2021-05-16] VITALS: Ht 182.9 cm; Wt 154.1 kg
[2021-05-16] MEDS ORDERED: diphenhydrAMINE 50MG/ML VIAL (J1200) IV STA (13:32)
[2021-05-16] MEDS ORDERED: METOCLOPRAMIDE INJ 10MG/2ML VIAL (J2765 PER 1) IV ONE (13:35)
[2021-05-16] MEDS ORDERED: ACETAMINOPHEN 500 MG TAB PO ONE (14:10)
[2021-05-16 15:51] VITALS: BP 136/85
== END 2021-05-16 15:54 | disposition home or self-care (01) ==
LOC: EDBD 13:05 → M ED 13:05
DX: R51.9 Headache, unspecified (principal); E11.9 Type 2 diabetes mellitus without complications; I25.2 Old myocardial infarction; I10 Essential (primary) hypertension; E78.5 Hyperlipidemia, unspecified; G47.30 Sleep apnea, unspecified; Z86.16 Personal history of COVID-19; Z95.5 Presence of coronary angioplasty implant and graft; Z88.1 Allergy status to other antibiotic agents; Z91.040 Latex allergy status; Z79.899 Other long term (current) drug therapy
CPT/HCPCS: 70450; 96374; 96375; 99284; J1200; J2765

== ENCOUNTER 2021-07-24 14:48 | Emergency (ER) | payer MEDICARE ==
[2021-07-24 15:10] VITALS: BP 128/67
[2021-07-24] MEDS ORDERED: ECOT81TA5 PO (15:12)
[2021-07-24] MEDS ORDERED: VITA-243 PO (15:12)
[2021-07-24] MEDS ORDERED: VALS40TA9 PO (15:12)
[2021-07-24] MEDS ORDERED: ATOR80TA59 PO (15:12)
[2021-07-24] MEDS ORDERED: DIVA250T67 PO (15:12)
[2021-07-24] MEDS ORDERED: INSUDET SC (15:12)
[2021-07-24] MEDS ORDERED: METF10004 PO (15:12)
[2021-07-24] MEDS ORDERED: ZINC50TA34 PO (15:12)
[2021-07-24] MEDS ORDERED: BRIL90TA PO (15:12)
[2021-07-24] MEDS ORDERED: PAXI20TA29 PO (15:12)
[2021-07-24] MEDS ORDERED: FINA5TAB2 PO (15:12)
[2021-07-24 15:54] LABS: BASO % 0.4 % (0.0-1.0); EOS # 0.3 10^3/uL (0.0-0.5); EOS % 4.1 % (0.0-3.0); HEMATOCRIT 45.1 % (42.0-52.0); HEMOGLOBIN 14.5 g/dl (13.5-17.5); LYMPH # 1.4 10^3/uL (1.5-5.0); MEAN CORPUSCULAR HEMOGLOBIN 27.4 pg (27.0-33.0); MEAN CORPUSCULAR HGB CONC 32.2 g/dl (32.0-36.5); MEAN CORPUSCULAR VOLUME 85.1 fl (80.0-96.0); MONO # 0.6 10^3/uL (0.0-0.8); MONO % 7.4 % (2.0-8.0); NEUTROPHILS # 5.5 10^3/uL (1.5-8.5); NEUTROPHILS % 69.6 % (36.0-66.0); PLATELET COUNT, AUTOMATED 170 10^3/uL (150-450); WHITE BLOOD COUNT 7.9 10^3/uL (4.0-10.0)
[2021-07-24 16:11] LABS: INR 1.06; PROTHROMBIN TIME 14.2 SECONDS (12.7-14.5)
[2021-07-24 16:12] LABS: PARTIAL THROMBOPLASTIN TIME 37.8 SECONDS (25.9-37.0)
[2021-07-24 16:20] LABS: BLOOD UREA NITROGEN 27 MG/DL (7-18); CALCIUM LEVEL 8.8 MG/DL (8.8-10.2); CARBON DIOXIDE LEVEL 21 MEQ/L (21-32); CHLORIDE LEVEL 107 MEQ/L (98-107); CREATININE FOR GFR 1.23 MG/DL (0.70-1.30); GLOMERULAR FILTRATION RATE > 60.0 (>49); GLUCOSE, FASTING 161 MG/DL (70-100); SODIUM LEVEL 140 MEQ/L (136-145)
== END 2021-07-24 17:44 | disposition home or self-care (01) ==
LOC: EDSEX 14:48 → EDBD 14:48 → M ED 14:48
DX: S00.03XA Contusion of scalp, initial encounter (principal); W01.198A Fall on same level from slipping, tripping and stumbling with subsequent striking against other object, initial encounter; Y92.009 Unspecified place in unspecified non-institutional (private) residence as the place of occurrence of the external cause; Y93.9 Activity, unspecified; Y99.9 Unspecified external cause status; E11.9 Type 2 diabetes mellitus without complications; I10 Essential (primary) hypertension; N40.0 Benign prostatic hyperplasia without lower urinary tract symptoms; K57.30 Diverticulosis of large intestine without perforation or abscess without bleeding; Z88.1 Allergy status to other antibiotic agents; Z91.040 Latex allergy status; Z79.899 Other long term (current) drug therapy; Z79.84 Long term (current) use of oral hypoglycemic drugs

== ENCOUNTER 2021-09-09 23:58 | Emergency (ER) | payer MEDICARE ==
[~2021-09-09 23:58] MED LIST changes: +ATOR80TA59 PO; +BRIL90TA PO; +DIVA250T67 PO; +ECOT81TA5 PO; +FINA5TAB2 PO; +INSUDET SC; +PAXI20TA29 PO; +VALS40TA9 PO; +VITA-243 PO; +ZINC50TA34 PO
[2021-09-10 02:53] LABS: BASO # 0.1 10^3/uL (0.0-0.2); BASO % 0.7 % (0.0-1.0); EOS # 0.3 10^3/uL (0.0-0.5); EOS % 4.2 % (0.0-3.0); HEMATOCRIT 43.8 % (42.0-52.0); HEMOGLOBIN 14.4 g/dl (13.5-17.5); LYMPH # 2.3 10^3/uL (1.5-5.0); LYMPH % 30.9 % (24.0-44.0); MEAN CORPUSCULAR HEMOGLOBIN 29.4 pg (27.0-33.0); MEAN CORPUSCULAR HGB CONC 32.9 g/dl (32.0-36.5); MEAN CORPUSCULAR VOLUME 89.4 fl (80.0-96.0); MONO # 0.5 10^3/uL (0.0-0.8); NEUTROPHILS # 4.2 10^3/uL (1.5-8.5); NEUTROPHILS % 56.7 % (36.0-66.0); PLATELET COUNT, AUTOMATED 189 10^3/uL (150-450); WHITE BLOOD COUNT 7.4 10^3/uL (4.0-10.0)
[2021-09-10 03:28] LABS: CK-MB VALUE MASS 1.2 NG/ML (<3.6); MB/CK RELATIVE INDEX 1.94 (< OR =4)
[2021-09-10] MEDS ORDERED: NITROGLYCERIN 0.4 MG SUBL TABLET SL PRN (03:30)
[2021-09-10 04:29] LABS: CK-MB VALUE MASS 1.3 NG/ML (<3.6); MB/CK RELATIVE INDEX 2.28 (< OR =4)
[2021-09-10 05:18] LABS: BLOOD UREA NITROGEN 27 MG/DL (7-18); CALCIUM LEVEL 8.6 MG/DL (8.8-10.2); CARBON DIOXIDE LEVEL 26 MEQ/L (21-32); CHLORIDE LEVEL 108 MEQ/L (98-107); CREATININE FOR GFR 1.28 MG/DL (0.70-1.30); GLOMERULAR FILTRATION RATE > 60.0 (>49); GLUCOSE, FASTING 170 MG/DL (70-100); NT-PRO BNP 242 PG/ML (<125); POTASSIUM SERUM 4.1 MEQ/L (3.5-5.1); SODIUM LEVEL 142 MEQ/L (136-145)
[2021-09-10 05:33] VITALS: BP 178/99
[2021-09-10 06:00] VITALS: BP 152/91
== END 2021-09-10 06:13 | disposition home or self-care (01) ==
LOC: EDBD 23:58 → M ED 23:58
DX: R07.89 Other chest pain (principal); R91.1 Solitary pulmonary nodule; I25.2 Old myocardial infarction; I10 Essential (primary) hypertension; E11.9 Type 2 diabetes mellitus without complications; Z95.5 Presence of coronary angioplasty implant and graft; Z88.1 Allergy status to other antibiotic agents; Z91.040 Latex allergy status; Z79.82 Long term (current) use of aspirin; Z79.899 Other long term (current) drug therapy; Z79.84 Long term (current) use of oral hypoglycemic drugs

== ENCOUNTER → 2021-11-04 | Outpatient (CLI) | payer MEDICARE | LOC: M WHC 08:59 | PROVIDERS: ATTEND Physician Assistant | DX: N20.0 Calculus of kidney (principal) ==

== ENCOUNTER 2021-11-26 15:22 | Emergency (ER) | payer MEDICARE ==
[~2021-11-26] VITALS: Ht 182.9 cm; Wt 112.7 kg
[2021-11-26 16:22] LABS: HEMATOCRIT 45.5 % (42.0-52.0); HEMOGLOBIN 14.5 g/dl (13.5-17.5); MEAN CORPUSCULAR HEMOGLOBIN 29.6 pg (27.0-33.0); MEAN CORPUSCULAR HGB CONC 31.9 g/dl (32.0-36.5); MEAN CORPUSCULAR VOLUME 92.9 fl (80.0-96.0); PLATELET COUNT, AUTOMATED 175 10^3/uL (150-450); WHITE BLOOD COUNT 8.5 10^3/uL (4.0-10.0)
[2021-11-26 17:08] LABS: CALCIUM LEVEL 8.2 MG/DL (8.8-10.2); CREATININE FOR GFR 1.64 MG/DL (0.70-1.30); GLOMERULAR FILTRATION RATE 45.4 (>49); POTASSIUM SERUM 4.2 MEQ/L (3.5-5.1)
[2021-11-26 17:15] LABS: CPK CREATINE PHOSPHOKINASE 56 U/L (39-308)
[2021-11-26] MEDS ORDERED: NS 1,000 ML IV ONE (18:15)
[2021-11-26 19:00] VITALS: BP 117/67
== END 2021-11-26 19:34 | disposition home or self-care (01) ==
LOC: M ED 15:22
DX: I95.1 Orthostatic hypotension (principal); E86.0 Dehydration; R94.31 Abnormal electrocardiogram [ECG] [EKG]; I25.10 Atherosclerotic heart disease of native coronary artery without angina pectoris; E11.9 Type 2 diabetes mellitus without complications; I11.0 Hypertensive heart disease with heart failure; I50.9 Heart failure, unspecified; Z86.73 Personal history of transient ischemic attack (TIA), and cerebral infarction without residual deficits; G47.33 Obstructive sleep apnea (adult) (pediatric); N40.0 Benign prostatic hyperplasia without lower urinary tract symptoms; E03.9 Hypothyroidism, unspecified; Z88.1 Allergy status to other antibiotic agents; Z91.048 Other nonmedicinal substance allergy status; Z91.040 Latex allergy status; Z79.84 Long term (current) use of oral hypoglycemic drugs; Z79.4 Long term (current) use of insulin; Z79.899 Other long term (current) drug therapy

== ENCOUNTER → 2021-12-02 | Outpatient (CLI) | payer MEDICARE | LOC: M SLEEP 20:00 | PROVIDERS: ATTEND Nurse Practitioner Family | DX: G47.33 Obstructive sleep apnea (adult) (pediatric) (principal) ==

== ENCOUNTER → 2021-12-15 | Outpatient (CLI) | payer MEDICARE | LOC: M PLAIMG 12:26 | PROVIDERS: ATTEND Family Medicine | DX: R91.8 Other nonspecific abnormal finding of lung field (principal) ==

== ENCOUNTER → 2022-02-16 | Outpatient (CLI) | payer MEDICARE ==
[~2022-02-16] MED LIST changes: -PAXI20TA29 PO; +PAXI20TA30 PO
== END ==
LOC: M RAD 15:24
PROVIDERS: ATTEND Physician Assistant Medical
DX: M25.572 Pain in left ankle and joints of left foot (principal)

== ENCOUNTER 2022-08-05 16:44 | Emergency (ER) | payer MEDICARE, OTHER ==
[~2022-08-05] VITALS: Ht 182.9 cm; Wt 118.2 kg
[2022-08-05] MEDS ORDERED: ACETAMINOPHEN 500 MG TAB PO ONE (17:50)
[2022-08-05 18:43] VITALS: BP 137/89; TEMP 97.9; O2SAT 97
== END 2022-08-05 19:06 | disposition home or self-care (01) ==
LOC: M ED 16:44
DX: S09.90XA Unspecified injury of head, initial encounter (principal); S22.32XA Fracture of one rib, left side, initial encounter for closed fracture; W18.2XXA Fall in (into) shower or empty bathtub, initial encounter; F10.10 Alcohol abuse, uncomplicated; R51.9 Headache, unspecified; Z86.79 Personal history of other diseases of the circulatory system; Z79.899 Other long term (current) drug therapy; Z79.82 Long term (current) use of aspirin

== ENCOUNTER 2022-08-12 03:53 | Emergency (ER) | payer MEDICARE, OTHER ==
[2022-08-12 04:02] VITALS: TEMP 98.3
[2022-08-12 04:24] LABS: BASO % 0.7 % (0.0-1.0); EOS # 0.3 10^3/uL (0.0-0.5); EOS % 5.3 % (0.0-3.0); HEMATOCRIT 40.5 % (42.0-52.0); HEMOGLOBIN 13.3 g/dl (13.5-17.5); LYMPH # 1.8 10^3/uL (1.5-5.0); MEAN CORPUSCULAR HEMOGLOBIN 28.1 pg (27.0-33.0); MEAN CORPUSCULAR HGB CONC 32.8 g/dl (32.0-36.5); MEAN CORPUSCULAR VOLUME 85.4 fl (80.0-96.0); MONO # 0.6 10^3/uL (0.0-0.8); MONO % 10.2 % (2.0-8.0); NEUTROPHILS # 3.1 10^3/uL (1.5-8.5); NEUTROPHILS % 53.1 % (36.0-66.0); PLATELET COUNT, AUTOMATED 177 10^3/uL (150-450); RED BLOOD COUNT 4.74 10^6/uL (4.30-6.10); WHITE BLOOD COUNT 5.9 10^3/uL (4.0-10.0)
[2022-08-12 04:46] LABS: CK-MB VALUE MASS < 1.0 NG/ML (<3.6)
[2022-08-12 04:55] LABS: ALBUMIN 3.5 G/DL (3.2-5.2); ALKALINE PHOSPHATASE 76 U/L (46-116); ALT/SGPT 11 U/L (7.0-40); AST/SGOT 15 U/L (<34); BILIRUBIN,DIRECT 0.2 MG/DL (<0.4); BILIRUBIN,TOTAL 0.7 MG/DL (0.3-1.2); BLOOD UREA NITROGEN 23 MG/DL (9-23); CALCIUM LEVEL 9.7 MG/DL (8.3-10.6); CARBON DIOXIDE LEVEL 26 MMOL/L (20-31); CHLORIDE LEVEL 104 MMOL/L (98-107); CPK CREATINE PHOSPHOKINASE 114 U/L (46-171); CREATININE FOR GFR 0.93 MG/DL (0.70-1.30); GLOMERULAR FILTRATION RATE > 60.0 (>49); GLUCOSE, FASTING 90 MG/DL (74-106); MB/CK RELATIVE INDEX 0.87 (< OR =4); POTASSIUM SERUM 3.9 MMOL/L (3.5-5.1); SODIUM LEVEL 137 MMOL/L (136-145)
[2022-08-12 05:46] LABS: CK-MB VALUE MASS 1.4 NG/ML (<3.6)
[2022-08-12 05:48] LABS: MB/CK RELATIVE INDEX 1.32 (< OR =4)
[2022-08-12] MEDS ORDERED: ISOVUE-370 76% 100ML VIAL As Ordered ONE (07:56)
[2022-08-12 11:45] VITALS: BP 152/94; O2SAT 94
== END 2022-08-12 11:57 | disposition home or self-care (01) ==
LOC: M ED 03:53
DX: R07.9 Chest pain, unspecified (principal); E11.9 Type 2 diabetes mellitus without complications; I10 Essential (primary) hypertension; I25.2 Old myocardial infarction; K21.9 Gastro-esophageal reflux disease without esophagitis; G47.33 Obstructive sleep apnea (adult) (pediatric); Z95.5 Presence of coronary angioplasty implant and graft; Z91.040 Latex allergy status; Z88.8 Allergy status to other drugs, medicaments and biological substances; Z79.899 Other long term (current) drug therapy; Z79.82 Long term (current) use of aspirin; Z79.84 Long term (current) use of oral hypoglycemic drugs; Z79.4 Long term (current) use of insulin
CPT/HCPCS: 36415; 71045; 71275; 80048; 80076; 82550; 82553; 84484; 85025; 85730; 93005; 93041; 94760; 99285; Q9967

== ENCOUNTER → 2022-08-28 | Outpatient (CLI) | payer OTHER | LOC: M RAD 08:16 | PROVIDERS: ATTEND Physician Assistant | DX: M47.22 Other spondylosis with radiculopathy, cervical region (principal); M50.320 Other cervical disc degeneration, mid-cervical region, unspecified level ==

== ENCOUNTER → 2022-11-23 | Outpatient (CLI) | payer MEDICARE ==
[2022-11-23 12:36] LABS: CALCIUM LEVEL 8.9 MG/DL (8.3-10.6); CREATININE FOR GFR 1.44 MG/DL (0.70-1.30); GLOMERULAR FILTRATION RATE 52.6 (>49); POTASSIUM SERUM 5.2 MMOL/L (3.5-5.1)
== END ==
LOC: M LAB 11:23
PROVIDERS: ATTEND Nurse Practitioner Family
DX: I50.32 Chronic diastolic (congestive) heart failure (principal)

== ENCOUNTER → 2022-12-09 | Outpatient (CLI) | payer MEDICARE | LOC: M WHC 08:56 | PROVIDERS: ATTEND Nurse Practitioner Family | DX: N62 Hypertrophy of breast (principal) | CPT/HCPCS: 76642; 77066; G0279 ==

== ENCOUNTER 2023-02-02 09:43 | Day surgery (SDC) | payer MEDICARE ==
[~2023-02-02] VITALS: Ht 185.4 cm; Wt 117.0 kg
[~2023-02-02 09:43] MED LIST changes: +ALLO300T2 PO; +AZEL1SPR3 NARES; +CLOP75TA2 PO; +DULO1CAP5 PO; +ESOM40CA35 PO; +JARD1TAB PO; +LIDOCAINE 3.5 % 1ML OPHTH TOPICAL GEL OU ONE; +MIDAZOLAM INJ 2MG/2ML VIAL As Ordered ONE; +NITR0.4S14 PO; +NYST10006 TOP; +OXYB15TA14 PO; +PROBCAP14 PO; +QC F0.52 PO; +SPIR-10 PO; +TADA20TA PO; +VICT18IN2 SC; +fentaNYL 100 MCG/2 ML INJECTION As Ordered ONE
[2023-02-02] MEDS ORDERED: SODIUM BICARBONATE 8.4% INJ 50MEQ 50ML VIAL As Ordered ONE (10:48)
[2023-02-02] MEDS ORDERED: CIPROFLOXACIN 0.3% OPHTH OINTMENT As Ordered ONE (10:48)
[2023-02-02] MEDS ORDERED: LIDOCAINE 2% W/EPINEPHRINE 20ML VIAL **PRES FREE As Ordered ONE (10:49)
[2023-02-02] MEDS ORDERED: POVIDONE-IODINE 5% OPHTH PREP SOL 30ML As Ordered ONE (10:56)
[2023-02-02] MEDS ORDERED: propofoL 200 MG/20 ML VIAL As Ordered ONE (12:04)
[2023-02-02 12:44] VITALS: BP 138/80; TEMP 96.8; O2SAT 94
== END 2023-02-02 13:30 | disposition home or self-care (01) ==
LOC: M SDC 09:43
PROVIDERS: ATTEND Ophthalmology
DX: H02.831 Dermatochalasis of right upper eyelid (principal); H02.834 Dermatochalasis of left upper eyelid; E11.9 Type 2 diabetes mellitus without complications; I25.2 Old myocardial infarction; G47.33 Obstructive sleep apnea (adult) (pediatric); Z95.5 Presence of coronary angioplasty implant and graft; E78.00 Pure hypercholesterolemia, unspecified; I10 Essential (primary) hypertension; F32.A Depression, unspecified; F41.9 Anxiety disorder, unspecified; Z91.048 Other nonmedicinal substance allergy status; Z91.040 Latex allergy status; Z88.8 Allergy status to other drugs, medicaments and biological substances; Z79.899 Other long term (current) drug therapy; Z79.02 Long term (current) use of antithrombotics/antiplatelets; Z79.84 Long term (current) use of oral hypoglycemic drugs; Z79.4 Long term (current) use of insulin; Z79.85 Long-term (current) use of injectable non-insulin antidiabetic drugs
CPT/HCPCS: 15822; 88300; J2250; J3010

== ENCOUNTER 2023-03-22 16:43 | Observation (INO) | payer MEDICARE ==
[~2023-03-22] VITALS: Ht 185.4 cm; Wt 112.8 kg
[~2023-03-22 16:43] MED LIST changes: -C-101TAB3 PO; -METF-877 PO; -NYST100085 TOP; -NYST1POW9 TOP; -PARO40TA2 PO; -RISATAB3 PO; -SEMA0.257; -SEMA0.257 SQ; -TRES1INJ2; -TRES1INJ2 SC
[2023-03-22] MEDS ORDERED: TRES1INJ2 (17:03)
[2023-03-22] MEDS ORDERED: SEMA0.257 (17:03)
[2023-03-22 19:34] LABS: BASO # 0.1 10^3/uL (0.0-0.2); BASO % 0.6 % (0.0-1.0); EOS # 0.3 10^3/uL (0.0-0.5); EOS % 4.4 % (0.0-3.0); HEMATOCRIT 47.5 % (42.0-52.0); HEMOGLOBIN 14.7 g/dl (13.5-17.5); LYMPH # 1.5 10^3/uL (1.5-5.0); LYMPH % 19.6 % (24.0-44.0); MEAN CORPUSCULAR HEMOGLOBIN 25.5 pg (27.0-33.0); MEAN CORPUSCULAR HGB CONC 30.9 g/dl (32.0-36.5); MEAN CORPUSCULAR VOLUME 82.3 fl (80.0-96.0); MONO # 0.6 10^3/uL (0.0-0.8); MONO % 7.9 % (2.0-8.0); NEUTROPHILS # 5.2 10^3/uL (1.5-8.5); PLATELET COUNT, AUTOMATED 219 10^3/uL (150-450); RED BLOOD COUNT 5.77 10^6/uL (4.30-6.10); WHITE BLOOD COUNT 7.8 10^3/uL (4.0-10.0)
[2023-03-22 19:46] LABS: INR 1.08; PROTHROMBIN TIME 13.7 SECONDS (12.5-14.5)
[2023-03-22 19:47] LABS: PARTIAL THROMBOPLASTIN TIME 27.4 SECONDS (24.8-34.2)
[2023-03-22 19:59] LABS: BLOOD UREA NITROGEN 30 MG/DL (9-23); CALCIUM LEVEL 8.6 MG/DL (8.3-10.6); CARBON DIOXIDE LEVEL 24 MMOL/L (20-31); CHLORIDE LEVEL 106 MMOL/L (98-107); CREATININE FOR GFR 1.09 MG/DL (0.70-1.30); GLOMERULAR FILTRATION RATE > 60.0 (>49); GLUCOSE, FASTING 123 MG/DL (74-106); POTASSIUM SERUM 4.9 MMOL/L (3.5-5.1); SODIUM LEVEL 137 MMOL/L (136-145)
[2023-03-22] MEDS ORDERED: propofoL 200 MG/20 ML VIAL As Ordered ONE (20:01)
[2023-03-22] MEDS ORDERED: MIDAZOLAM INJ 2MG/2ML VIAL As Ordered ONE (20:01)
[2023-03-22] MEDS ORDERED: LIDOCAINE 2% 100MG/5ML SDV (FOR ANES.) As Ordered ONE (20:01)
[2023-03-22] MEDS ORDERED: SUCCINYLCHOLINE 100MG/5ML SYRINGE As Ordered ONE (20:01)
[2023-03-22] MEDS ORDERED: fentaNYL 100 MCG/2 ML INJECTION As Ordered ONE (20:01)
[2023-03-22] MEDS ORDERED: ROCURONIUM BROMIDE 50MG/5ML VIAL As Ordered ONE (20:03)
[2023-03-22] MEDS ORDERED: SUGAMMADEX SODIUM 500 MG/5 ML VIAL (BRIDION) As Ordered ONE (20:26)
[2023-03-22] MEDS ORDERED: GLUCAGON INJ 1MG VIAL SC PRN (21:05)
[2023-03-22] MEDS ORDERED: GLUCOSE 4GM CHEW TABLET PO PRN (21:05)
[2023-03-22] MEDS ORDERED: DEXTROSE 50% 50ML SYRINGE IV PRN (21:05)
[2023-03-22] MEDS ORDERED: NORCO, ANEXSIA 5/325MG TABLET (HYDROcodone/ACETAMINOPHEN) PO PRN (21:10)
[2023-03-22] MEDS ORDERED: ONDANSETRON 4MG ORAL DISINTEGRATING TAB PO PRN (21:10)
[2023-03-22] MEDS: ACETAMINOPHEN 500 MG TAB PO STA (21:10)
[2023-03-22 22:00] VITALS: BP 133/81; TEMP 98.4; O2SAT 95
[2023-03-22] MEDS: INSULIN LISPRO (NovoLOG) PER UNIT SC SCH (22:02)
[2023-03-22] MEDS: GABAPENTIN 300 MG CAP PO SCH (22:11)
[2023-03-22 22:34] VITALS: BP 152/82; TEMP 98.4; O2SAT 93
[2023-03-22] MEDS: DIVALPROEX 250MG TAB PO SCH (22:47)
[2023-03-22 23:35] VITALS: BP 143/76; TEMP 98.3; O2SAT 94
[2023-03-22] MEDS ORDERED: RISATAB3 PO (23:42)
[2023-03-22] MEDS ORDERED: NYST100085 TOP (23:42)
[2023-03-22] MEDS ORDERED: SEMA0.257 SQ (23:42)
[2023-03-22] MEDS ORDERED: METF-877 PO (23:42)
[2023-03-22] MEDS ORDERED: ATOR80TA59 PO (23:42)
[2023-03-22] MEDS ORDERED: C-101TAB3 PO (23:42)
[2023-03-22] MEDS ORDERED: NYST1POW9 TOP (23:42)
[2023-03-22] MEDS ORDERED: TRES1INJ2 SQ (23:42)
[2023-03-22] MEDS ORDERED: PARO40TA2 PO (23:42)
[2023-03-22] MEDS ORDERED: FLOM0.4C39 PO (23:42)
[2023-03-22] MEDS ORDERED: HOME MED LIST COMPLETE! XX SCH (23:45)
[2023-03-23 00:34] VITALS: BP 124/71; TEMP 98.3; O2SAT 93
[2023-03-23 01:37] VITALS: BP 137/81; TEMP 98.2; O2SAT 91
[2023-03-23 02:41] VITALS: BP 130/77; TEMP 98.1; O2SAT 91
[2023-03-23 04:00] VITALS: BP 123/76; TEMP 97.6; O2SAT 90
[2023-03-23 05:53] LABS: BLOOD UREA NITROGEN 31 MG/DL (9-23); CALCIUM LEVEL 8.3 MG/DL (8.3-10.6); CARBON DIOXIDE LEVEL 25 MMOL/L (20-31); CHLORIDE LEVEL 104 MMOL/L (98-107); CREATININE FOR GFR 1.12 MG/DL (0.70-1.30); GLOMERULAR FILTRATION RATE > 60.0 (>49); GLUCOSE, FASTING 215 MG/DL (74-106); POTASSIUM SERUM 5.4 MMOL/L (3.5-5.1); SODIUM LEVEL 135 MMOL/L (136-145)
[2023-03-23] MEDS ORDERED: AZELASTINE 137MCG NASAL SPY 30 ML (ASTELIN) PRN (07:10)
[2023-03-23] MEDS ORDERED: NYSTATIN 100,000 UNITS/GM TOPICAL PWD 15GM TOP PRN (07:10)
[2023-03-23] MEDS ORDERED: NITROGLYCERIN 0.4MG SUBL TABLET SL PRN (07:10)
[2023-03-23 07:37] VITALS: BP 119/69; TEMP 97.2; O2SAT 90
[2023-03-23] MEDS: PATIROMER SORBITEX CALCIUM 8.4 GM POWDER PACKET (VELTASSA) PO ONE (08:29)
[2023-03-23] MEDS: FINASTERIDE 5MG TAB PO SCH (08:30)
[2023-03-23] MEDS: oxyBUTYnin *DITROPAN XL* 5 MG TABCR PO SCH (08:30)
[2023-03-23] MEDS: PANTOPRAZOLE 40MG TAB (PROTONIX) PO SCH (08:30)
[2023-03-23] MEDS: LACTOBACILLUS ACIDOPHILUS CAP (BACID) PO SCH (08:30)
[2023-03-23] MEDS: DULoxetine 30MG CAPSULE (CYMBALTA) PO SCH (08:30)
[2023-03-23] MEDS: TAMSULOSIN 0.4 MG CAP PO SCH (08:30)
[2023-03-23] MEDS: PARoxetine 20MG TABLET PO SCH (08:30)
[2023-03-23] MEDS: CLOPIDOGREL 75 MG TAB PO SCH (08:30)
[2023-03-23] MEDS: INSULIN LISPRO (NovoLOG) PER UNIT SC SCH (08:30)
[2023-03-23] MEDS ORDERED: LEVEMIR (INSULIN DETEMIR) 1 UNITS/0.01ML SC SCH (21:00)
[2023-03-23] MEDS ORDERED: ATORVASTATIN 20 MG TAB PO SCH (21:00)
== END 2023-03-23 11:20 | disposition home or self-care (01) ==
LOC: M ED 16:43 → M SDC 19:30 → M RR INP 19:31 → M PCU 21:50
PROVIDERS: ADMIT Internal Medicine; ATTEND Internal Medicine Pulmonary Disease
DX: T17.598A Other foreign object in bronchus causing other injury, initial encounter (principal); K08.531 Fractured dental restorative material with loss of material; Y92.531 Health care provider office as the place of occurrence of the external cause; J38.4 Edema of larynx; E11.9 Type 2 diabetes mellitus without complications; I12.9 Hypertensive chronic kidney disease with stage 1 through stage 4 chronic kidney disease, or unspecified chronic kidney disease; N18.30 Chronic kidney disease, stage 3 unspecified; N20.0 Calculus of kidney; E78.5 Hyperlipidemia, unspecified; G47.33 Obstructive sleep apnea (adult) (pediatric); K57.92 Diverticulitis of intestine, part unspecified, without perforation or abscess without bleeding; F32.A Depression, unspecified; M10.9 Gout, unspecified; I25.10 Atherosclerotic heart disease of native coronary artery without angina pectoris; G62.9 Polyneuropathy, unspecified; N32.81 Overactive bladder; K21.9 Gastro-esophageal reflux disease without esophagitis; Z20.822 Contact with and (suspected) exposure to COVID-19; Z80.43 Family history of malignant neoplasm of testis; Z88.8 Allergy status to other drugs, medicaments and biological substances; Z91.048 Other nonmedicinal substance allergy status; Z91.040 Latex allergy status; Z79.899 Other long term (current) drug therapy; Z79.02 Long term (current) use of antithrombotics/antiplatelets; Z79.84 Long term (current) use of oral hypoglycemic drugs
CPT/HCPCS: 31635; 36415; 71046; 80048; 85025; 85610; 85730; 87635; 88300; 99284; G0378; J0330; J1815; J2250; J3010

== ENCOUNTER → 2023-03-22 | Outpatient (CLI) | payer MEDICARE ==
[~2023-03-22] MED LIST changes: +C-101TAB3 PO; +IRBE300T25 PO; -IRBE300T7 PO; -LIDOCAINE 3.5 % 1ML OPHTH TOPICAL GEL OU ONE; +METF-877 PO; -MIDAZOLAM INJ 2MG/2ML VIAL As Ordered ONE; +NYST100085 TOP; +NYST1POW9 TOP; +PARO40TA2 PO; +RISATAB3 PO; +SEMA0.257; +SEMA0.257 SQ; +TRES1INJ2; +TRES1INJ2 SC; -fentaNYL 100 MCG/2 ML INJECTION As Ordered ONE
== END ==
LOC: M RAD 15:18
PROVIDERS: ATTEND Dentist
DX: T81.506A Unspecified complication of foreign body accidentally left in body following aspiration, puncture or other catheterization, initial encounter (principal)

== ENCOUNTER 2023-04-09 12:16 | Inpatient (IN) | payer MEDICARE ==
[~2023-04-09] VITALS: Ht 185.4 cm; Wt 115.0 kg
[2023-04-09] VITALS (10 sets, daily range): BP systolic 118–176; BP diastolic 74–96; TEMP 97.2–97.9; O2SAT 93–97
[~2023-04-09 12:16] MED LIST changes: +C-101TAB3 PO; +METF-877 PO; +NYST100085 TOP; +NYST1POW9 TOP; +PARO40TA2 PO; +RISATAB3 PO; +SEMA0.257; +SEMA0.257 SQ; +TRES1INJ2; +TRES1INJ2 SQ
[2023-04-09 13:07] LABS: BASO % 0.5 % (0.0-1.0); EOS # 0.3 10^3/uL (0.0-0.5); EOS % 4.1 % (0.0-3.0); HEMATOCRIT 43.8 % (42.0-52.0); HEMOGLOBIN 13.9 g/dl (13.5-17.5); LYMPH # 1.5 10^3/uL (1.5-5.0); LYMPH % 21.1 % (24.0-44.0); MEAN CORPUSCULAR HEMOGLOBIN 25.7 pg (27.0-33.0); MEAN CORPUSCULAR HGB CONC 31.7 g/dl (32.0-36.5); MONO # 0.5 10^3/uL (0.0-0.8); MONO % 6.6 % (2.0-8.0); NEUTROPHILS # 4.9 10^3/uL (1.5-8.5); NEUTROPHILS % 67.4 % (36.0-66.0); PLATELET COUNT, AUTOMATED 215 10^3/uL (150-450); RED BLOOD COUNT 5.41 10^6/uL (4.30-6.10); WHITE BLOOD COUNT 7.3 10^3/uL (4.0-10.0)
[2023-04-09 13:19] LABS: INR 1.11
[2023-04-09 13:35] LABS: CK-MB VALUE MASS < 1.0 NG/ML (<3.6)
[2023-04-09] MEDS: NS 1,000 ML IV ONE (13:35)
[2023-04-09 13:36] LABS: ETHYL ALCOHOL (ETHANOL) < 0.003 % (0.000-0.010)
[2023-04-09 13:37] LABS: CPK CREATINE PHOSPHOKINASE 70 U/L (46-171); MB/CK RELATIVE INDEX 1.42 (< OR =4)
[2023-04-09 13:38] LABS: BLOOD UREA NITROGEN 35 MG/DL (9-23); CALCIUM LEVEL 8.2 MG/DL (8.3-10.6); CARBON DIOXIDE LEVEL 21 MMOL/L (20-31); CHLORIDE LEVEL 106 MMOL/L (98-107); CREATININE FOR GFR 1.25 MG/DL (0.70-1.30); GLOMERULAR FILTRATION RATE > 60.0 (>49); GLUCOSE, FASTING 128 MG/DL (74-106); MAGNESIUM LEVEL 1.8 MG/DL (1.8-2.4); POTASSIUM SERUM 4.9 MMOL/L (3.5-5.1); SODIUM LEVEL 137 MMOL/L (136-145)
[2023-04-09 13:39] LABS: THYROID STIMULATING HORMONE 1.881 uIU/ML (0.55-4.78)
[2023-04-09] MEDS: cefTRIAXone SOD 2 GM in D5W MINI-BAG PLUS 50 ML IV ONE (14:31)
[2023-04-09] MEDS: NS 2,400 ML in IV 1 EA IV ONE (14:32)
[2023-04-09 14:33] LABS: CK-MB VALUE MASS < 1.0 NG/ML (<3.6)
[2023-04-09 14:35] LABS: CPK CREATINE PHOSPHOKINASE 62 U/L (46-171); MB/CK RELATIVE INDEX 1.61 (< OR =4)
[2023-04-09 14:42] LABS: AMPHETAMINES LEVEL URINE NEGATIVE (NEGATIVE); BENZODIAZEPINES URINE NEGATIVE (NEGATIVE)
[2023-04-09 14:43] LABS: BARBITURATES URINE NEGATIVE (NEGATIVE); CANNABINOIDS URINE NEGATIVE (NEGATIVE); COCAINE METABOLITE URINE NEGATIVE (NEGATIVE); METHADONE URINE NEGATIVE (NEGATIVE); OPIATES URINE NEGATIVE (NEGATIVE); PHENCYCLIDINE URINE NEGATIVE (NEGATIVE)
[2023-04-09] MEDS ORDERED: GLUCAGON INJ 1MG VIAL SC PRN (18:20)
[2023-04-09] MEDS ORDERED: GLUCOSE 4GM CHEW TABLET PO PRN (18:20)
[2023-04-09] MEDS ORDERED: DEXTROSE 50% 50ML SYRINGE IV PRN (18:20)
[2023-04-09] MEDS ORDERED: XALA0.007 OU (18:54)
[2023-04-09] MEDS ORDERED: SEMA1PEN2 SQ (18:54)
[2023-04-09] MEDS ORDERED: INSU100I48 SQ (18:54)
[2023-04-09] MEDS ORDERED: PERI12LIQ PO (18:54)
[2023-04-09] MEDS ORDERED: METR0.7534 TOP (18:54)
[2023-04-09] MEDS ORDERED: C-101TAB PO (18:54)
[2023-04-09] MEDS ORDERED: HOME MED LIST COMPLETE! XX SCH (18:55)
[2023-04-09] MEDS: DIVALPROEX 250MG TAB PO SCH (22:13)
[2023-04-09] MEDS: GABAPENTIN 300 MG CAP PO SCH (22:13)
[2023-04-09] MEDS: TAMSULOSIN 0.4 MG CAP PO SCH (22:14)
[2023-04-09] MEDS: LEVEMIR (INSULIN DETEMIR) 1 UNITS/0.01ML SC SCH (22:15)
[2023-04-09] MEDS: LATANOPROST 0.005% OPHTH SOLN 2.5 ML OU SCH (22:15)
[2023-04-10] VITALS (14 sets, daily range): BP systolic 111–158; BP diastolic 62–94; TEMP 97.5–97.8; O2SAT 91–95
[2023-04-10 06:05] LABS: BASO % 0.3 % (0.0-1.0); EOS # 0.4 10^3/uL (0.0-0.5); EOS % 6.1 % (0.0-3.0); HEMATOCRIT 40.5 % (42.0-52.0); HEMOGLOBIN 12.6 g/dl (13.5-17.5); LYMPH # 1.4 10^3/uL (1.5-5.0); LYMPH % 23.2 % (24.0-44.0); MEAN CORPUSCULAR HEMOGLOBIN 25.3 pg (27.0-33.0); MEAN CORPUSCULAR HGB CONC 31.1 g/dl (32.0-36.5); MEAN CORPUSCULAR VOLUME 81.2 fl (80.0-96.0); MONO # 0.4 10^3/uL (0.0-0.8); MONO % 7.4 % (2.0-8.0); NEUTROPHILS # 3.7 10^3/uL (1.5-8.5); NEUTROPHILS % 62.5 % (36.0-66.0); PLATELET COUNT, AUTOMATED 181 10^3/uL (150-450); RED BLOOD COUNT 4.99 10^6/uL (4.30-6.10); WHITE BLOOD COUNT 5.9 10^3/uL (4.0-10.0)
[2023-04-10 06:25] LABS: BLOOD UREA NITROGEN 24 MG/DL (9-23); CALCIUM LEVEL 7.7 MG/DL (8.3-10.6); CARBON DIOXIDE LEVEL 26 MMOL/L (20-31); CHLORIDE LEVEL 109 MMOL/L (98-107); CREATININE FOR GFR 0.84 MG/DL (0.70-1.30); GLOMERULAR FILTRATION RATE > 60.0 (>49); GLUCOSE, FASTING 100 MG/DL (74-106); POTASSIUM SERUM 4.5 MMOL/L (3.5-5.1); SODIUM LEVEL 138 MMOL/L (136-145)
[2023-04-10] MEDS: CLOPIDOGREL 75 MG TAB PO SCH (09:54)
[2023-04-10] MEDS: ASPIRIN 81MG ENTERIC TABLET PO SCH (09:54)
[2023-04-10] MEDS: allopurinoL 300 MG TAB PO SCH (09:54)
[2023-04-10] MEDS: PANTOPRAZOLE 40MG TAB (PROTONIX) PO SCH (09:54)
[2023-04-10] MEDS: oxyBUTYnin *DITROPAN XL* 5 MG TABCR PO SCH (09:54)
[2023-04-10] MEDS: PARoxetine 20MG TABLET PO SCH (09:54)
[2023-04-10] MEDS: DULoxetine 30MG CAPSULE (CYMBALTA) PO SCH (09:54)
[2023-04-10] MEDS: FINASTERIDE 5MG TAB PO SCH (09:54)
[2023-04-10] MEDS: INSULIN LISPRO (NovoLOG) PER UNIT SC SCH (09:55)
[2023-04-10] MEDS: ENOXAPARIN 40MG/0.4ML SYRINGE (J1650 PER 10MG) SC SCH (09:55)
[2023-04-10] MEDS: ACETAMINOPHEN TAB 650MG DOSE (2X325MG) PO PRN (09:56)
== END 2023-04-10 14:12 | disposition home or self-care (01) | DRG 178 ==
LOC: EDBD 12:16 → M ED 12:16 → M ED INP 16:35 → M PCU 17:36
PROVIDERS: ADMIT Internal Medicine Nephrology; ATTEND Internal Medicine Nephrology
DX: U07.1 COVID-19 (principal); E87.20 Acidosis, unspecified; I95.1 Orthostatic hypotension; I12.9 Hypertensive chronic kidney disease with stage 1 through stage 4 chronic kidney disease, or unspecified chronic kidney disease; G47.33 Obstructive sleep apnea (adult) (pediatric); N18.30 Chronic kidney disease, stage 3 unspecified; F32.A Depression, unspecified; E11.22 Type 2 diabetes mellitus with diabetic chronic kidney disease; E78.5 Hyperlipidemia, unspecified; E66.9 Obesity, unspecified; M10.9 Gout, unspecified; I25.10 Atherosclerotic heart disease of native coronary artery without angina pectoris; I25.2 Old myocardial infarction; G40.909 Epilepsy, unspecified, not intractable, without status epilepticus; N40.1 Benign prostatic hyperplasia with lower urinary tract symptoms; N32.81 Overactive bladder; K21.9 Gastro-esophageal reflux disease without esophagitis; N52.9 Male erectile dysfunction, unspecified; E11.40 Type 2 diabetes mellitus with diabetic neuropathy, unspecified; D35.01 Benign neoplasm of right adrenal gland; M50.321 Other cervical disc degeneration at C4-C5 level; Z87.81 Personal history of (healed) traumatic fracture; Z79.82 Long term (current) use of aspirin; Z79.4 Long term (current) use of insulin; Z79.899 Other long term (current) drug therapy; Z88.8 Allergy status to other drugs, medicaments and biological substances; Z91.040 Latex allergy status; Z91.048 Other nonmedicinal substance allergy status; Z79.02 Long term (current) use of antithrombotics/antiplatelets; Z68.33 Body mass index [BMI] 33.0-33.9, adult

== ENCOUNTER 2023-05-18 10:54 | Day surgery (SDC) | payer MEDICARE ==
[~2023-05-18] VITALS: Ht 185.4 cm; Wt 112.9 kg
[~2023-05-18 10:54] MED LIST changes: +AMOX500C PO; +C-101TAB PO; +INSU100I48 SQ; +LIDOCAINE 3.5 % 1ML OPHTH TOPICAL GEL OU ONE; +METR0.7534 TOP; +MIDAZOLAM INJ 2MG/2ML VIAL As Ordered ONE; +PERI12LIQ PO; +SEMA1PEN2 SQ; +XALA0.007 OU
[2023-05-18] MEDS ORDERED: CIPROFLOXACIN 0.3% OPHTH OINTMENT As Ordered ONE (11:37)
[2023-05-18] MEDS ORDERED: TETRACAINE 0.5% OPHTH SOLN 4ML As Ordered ONE (11:38)
[2023-05-18] MEDS ORDERED: propofoL 200 MG/20 ML VIAL As Ordered ONE (14:00)
[2023-05-18] MEDS: SODIUM BICARBONATE 8.4% INJ 50MEQ 50ML VIAL As Ordered ONE (14:10)
[2023-05-18] MEDS: LIDOCAINE 2% W/EPINEPHRINE 20ML VIAL **PRES FREE As Ordered ONE (14:10)
[2023-05-18 15:29] VITALS: BP 169/93; TEMP 97.9; O2SAT 95
== END 2023-05-18 15:35 | disposition home or self-care (01) ==
LOC: M SDC 10:54
PROVIDERS: ATTEND Ophthalmology
DX: H02.403 Unspecified ptosis of bilateral eyelids (principal); E11.9 Type 2 diabetes mellitus without complications; G47.30 Sleep apnea, unspecified; Z79.899 Other long term (current) drug therapy
CPT/HCPCS: 15822; J2250

== ENCOUNTER 2023-09-02 08:45 | Day surgery (SDC) | payer MEDICARE ==
[~2023-09-02] VITALS: Ht 185.4 cm; Wt 112.9 kg
[~2023-09-02 08:45] MED LIST changes: -LIDOCAINE 3.5 % 1ML OPHTH TOPICAL GEL OU ONE; -METR0.7534 TOP; +METR60GE3 TOP; -MIDAZOLAM INJ 2MG/2ML VIAL As Ordered ONE; +SEMA2PEN SQ; +ceFAZolin SOD 2 GM in IV 1 EA IV ONE
[2023-09-02] MEDS ORDERED: ceFAZolin 2 GM/D5W 50 ML IV BAG As Ordered ONE (09:52)
[2023-09-02] MEDS ORDERED: SUGAMMADEX SODIUM 500 MG/5 ML VIAL (BRIDION) As Ordered ONE (10:36)
[2023-09-02] MEDS ORDERED: propofoL 200 MG/20 ML VIAL As Ordered ONE (10:36)
[2023-09-02] MEDS ORDERED: ONDANSETRON 4MG 2ML VIAL As Ordered ONE (10:36)
[2023-09-02] MEDS ORDERED: ROCURONIUM BROMIDE 50MG/5ML VIAL As Ordered ONE (10:36)
[2023-09-02] MEDS ORDERED: fentaNYL 100 MCG/2 ML INJECTION As Ordered ONE (10:37)
[2023-09-02] MEDS ORDERED: MIDAZOLAM INJ 2MG/2ML VIAL As Ordered ONE (10:37)
[2023-09-02] MEDS ORDERED: fentaNYL 100 MCG/2 ML INJECTION IV PRN (13:00)
[2023-09-02] MEDS ORDERED: oxyCODONE 5MG TAB PO PRN (13:00)
[2023-09-02] MEDS ORDERED: ONDANSETRON 4MG 2ML VIAL IV PRN (13:00)
[2023-09-02] MEDS ORDERED: INSULIN LISPRO (NovoLOG) PER UNIT SC PRN (13:10)
[2023-09-02] MEDS ORDERED: GLUCAGON INJ 1MG VIAL SC PRN (13:10)
[2023-09-02] MEDS ORDERED: GLUCOSE 4 GM CHEW PO PRN (13:10)
[2023-09-02] MEDS ORDERED: DEXTROSE 50% 50ML SYRINGE IV PRN (13:10)
[2023-09-02] MEDS ORDERED: NS 1,000 ML IV SCH (13:30)
[2023-09-02] MEDS ORDERED: PERCOCET 5MG/325MG TAB PO PRN ×2 (13:30)
[2023-09-02] MEDS: HYDROMORPHONE HCL 0.5 MG/ 0.5 ML SYRINGE IV PRN (13:36)
[2023-09-02 14:48] VITALS: BP 152/79; TEMP 97.8; O2SAT 96
== END 2023-09-02 14:37 | disposition home or self-care (01) ==
LOC: M SDC 08:45
PROVIDERS: ATTEND Surgery
DX: K80.10 Calculus of gallbladder with chronic cholecystitis without obstruction (principal); E11.40 Type 2 diabetes mellitus with diabetic neuropathy, unspecified; I12.9 Hypertensive chronic kidney disease with stage 1 through stage 4 chronic kidney disease, or unspecified chronic kidney disease; N18.30 Chronic kidney disease, stage 3 unspecified; E78.00 Pure hypercholesterolemia, unspecified; E11.22 Type 2 diabetes mellitus with diabetic chronic kidney disease; I25.2 Old myocardial infarction; Z95.5 Presence of coronary angioplasty implant and graft; Z79.899 Other long term (current) drug therapy; Z79.82 Long term (current) use of aspirin; Z79.85 Long-term (current) use of injectable non-insulin antidiabetic drugs; Z79.4 Long term (current) use of insulin; Z87.19 Personal history of other diseases of the digestive system; Z79.84 Long term (current) use of oral hypoglycemic drugs; N40.0 Benign prostatic hyperplasia without lower urinary tract symptoms; Z90.89 Acquired absence of other organs; Z88.8 Allergy status to other drugs, medicaments and biological substances; Z91.040 Latex allergy status; Z91.048 Other nonmedicinal substance allergy status; Z90.49 Acquired absence of other specified parts of digestive tract
CPT/HCPCS: 47562; 88304; J0665; J0690; J1170; J2250; J2405; J3010

== ENCOUNTER 2023-11-22 10:23 | Inpatient (IN) | payer MEDICARE ==
[~2023-11-22] VITALS: Ht 185.4 cm; Wt 113.3 kg
[~2023-11-22 10:23] MED LIST changes: +GABA-1490 PO; -GABA600T4 PO; -ceFAZolin SOD 2 GM in IV 1 EA IV ONE
[2023-11-22 12:01] LABS: BASO % 0.4 % (0.0-1.0); EOS # 0.2 10^3/uL (0.0-0.5); HEMATOCRIT 48.2 % (42.0-52.0); HEMOGLOBIN 14.6 g/dl (13.5-17.5); LYMPH # 1.3 10^3/uL (1.5-5.0); LYMPH % 11.9 % (24.0-44.0); MEAN CORPUSCULAR HEMOGLOBIN 23.5 pg (27.0-33.0); MEAN CORPUSCULAR HGB CONC 30.3 g/dl (32.0-36.5); MEAN CORPUSCULAR VOLUME 77.6 fl (80.0-96.0); MONO # 0.7 10^3/uL (0.0-0.8); MONO % 6.8 % (2.0-8.0); NEUTROPHILS # 8.5 10^3/uL (1.5-8.5); NEUTROPHILS % 78.3 % (36.0-66.0); PLATELET COUNT, AUTOMATED 216 10^3/uL (150-450); RED BLOOD COUNT 6.21 10^6/uL (4.30-6.10); WHITE BLOOD COUNT 10.8 10^3/uL (4.0-10.0)
[2023-11-22] MEDS: ONDANSETRON 4MG 2ML VIAL IV ONE (12:01)
[2023-11-22] MEDS: KETOROLAC 30 MG/ML 1ML VIAL IV ONE (12:01)
[2023-11-22 12:08] LABS: LIPASE 41 U/L (12-53)
[2023-11-22 12:10] LABS: ALBUMIN 3.7 G/DL (3.2-5.2); ALKALINE PHOSPHATASE 106 U/L (46-116); ALT/SGPT 25 U/L (7.0-40); AST/SGOT 18 U/L (<34); BILIRUBIN,DIRECT 0.3 MG/DL (<0.4); BILIRUBIN,TOTAL 0.9 MG/DL (0.3-1.2); BLOOD UREA NITROGEN 21 MG/DL (9-23); CALCIUM LEVEL 9.4 MG/DL (8.3-10.6); CARBON DIOXIDE LEVEL 27 MMOL/L (20-31); CHLORIDE LEVEL 106 MMOL/L (98-107); CREATININE FOR GFR 0.93 MG/DL (0.70-1.30); GLOMERULAR FILTRATION RATE > 60.0 (>49); GLUCOSE, FASTING 121 MG/DL (74-106); POTASSIUM SERUM 4.2 MMOL/L (3.5-5.1); SODIUM LEVEL 142 MMOL/L (136-145); TOTAL PROTEIN 6.7 G/DL (5.7-8.2)
[2023-11-22] MEDS ORDERED: ISOVUE-370 76% 100ML VIAL As Ordered ONE (12:24)
[2023-11-22] MEDS: PANTOPRAZOLE 40MG VIAL IV ONE (15:43)
[2023-11-22] MEDS ORDERED: VARE0.03 (15:52)
[2023-11-22] MEDS ORDERED: IRBE150T27 PO (15:52)
[2023-11-22] MEDS ORDERED: HOME MED LIST COMPLETE! XX SCH (15:55)
[2023-11-22 18:20] VITALS: BP 146/75; TEMP 94; O2SAT 94
[2023-11-22 19:44] VITALS: BP 132/70; TEMP 98.6; O2SAT 92
[2023-11-22] MEDS ORDERED: GLUCAGON INJ 1MG VIAL SC PRN (20:40)
[2023-11-22] MEDS ORDERED: GLUCOSE 4 GM CHEW PO PRN (20:40)
[2023-11-22] MEDS ORDERED: DEXTROSE 50% 50ML SYRINGE IV PRN (20:40)
[2023-11-23] VITALS (8 sets, daily range): BP systolic 136–204; BP diastolic 74–108; TEMP 97.8–98.7; O2SAT 92–96
[2023-11-23] MEDS: INSULIN LISPRO (NovoLOG) PER UNIT SC SCH
[2023-11-23] MEDS: KETOROLAC 30 MG/ML 1ML VIAL IV PRN (00:56)
[2023-11-23 07:47] LABS: BASO % 0.5 % (0.0-1.0); EOS # 0.3 10^3/uL (0.0-0.5); EOS % 4.2 % (0.0-3.0); HEMATOCRIT 43.2 % (42.0-52.0); HEMOGLOBIN 13.2 g/dl (13.5-17.5); LYMPH # 1.4 10^3/uL (1.5-5.0); LYMPH % 21.4 % (24.0-44.0); MEAN CORPUSCULAR HEMOGLOBIN 24.1 pg (27.0-33.0); MEAN CORPUSCULAR HGB CONC 30.6 g/dl (32.0-36.5); MEAN CORPUSCULAR VOLUME 78.8 fl (80.0-96.0); MONO # 0.5 10^3/uL (0.0-0.8); MONO % 7.5 % (2.0-8.0); NEUTROPHILS # 4.4 10^3/uL (1.5-8.5); NEUTROPHILS % 65.9 % (36.0-66.0); PLATELET COUNT, AUTOMATED 175 10^3/uL (150-450); RED BLOOD COUNT 5.48 10^6/uL (4.30-6.10); WHITE BLOOD COUNT 6.6 10^3/uL (4.0-10.0)
[2023-11-23 08:22] LABS: BLOOD UREA NITROGEN 31 MG/DL (9-23); CALCIUM LEVEL 8.3 MG/DL (8.3-10.6); CARBON DIOXIDE LEVEL 29 MMOL/L (20-31); CHLORIDE LEVEL 108 MMOL/L (98-107); CREATININE FOR GFR 1.22 MG/DL (0.70-1.30); GLOMERULAR FILTRATION RATE > 60.0 (>49); GLUCOSE, FASTING 76 MG/DL (74-106); POTASSIUM SERUM 4.2 MMOL/L (3.5-5.1); SODIUM LEVEL 141 MMOL/L (136-145)
[2023-11-23] MEDS: D5W/0.9% SODIUM CHLORIDE 1,000 ML IV SCH (08:49)
[2023-11-23] MEDS: FLUBLOK(EGGFREE) TRIVAL(24-25) VACCINE PF 0.5ML SYRINGE 18YRS & OLDER IM.IMMUN ONE (14:08)
[2023-11-23] MEDS: PANTOPRAZOLE 40MG VIAL IV SCH (16:27)
[2023-11-23] MEDS: **hydrALAZINE** 50 MG TAB PO SCH (17:47)
[2023-11-23] MEDS: ACETAMINOPHEN *IV* 1,000 MG in IV 1 EA IV ONE (17:49)
[2023-11-23] MEDS: IRBESARTAN 150MG TAB PO SCH (20:40)
[2023-11-23] MEDS: VALPROATE SOD INJ 250 MG in D5W 50 ML IV SCH (21:00)
[2023-11-24 00:30] VITALS: BP 160/90
[2023-11-24 02:28] VITALS: BP 190/100
[2023-11-24] MEDS: amLODIPine 5 MG TAB PO SCH (02:36)
[2023-11-24 03:38] VITALS: BP 160/98
[2023-11-24 05:39] VITALS: BP 180/80; TEMP 98.4; O2SAT 93
[2023-11-24 06:43] LABS: BASO % 0.4 % (0.0-1.0); EOS # 0.4 10^3/uL (0.0-0.5); EOS % 4.6 % (0.0-3.0); HEMATOCRIT 43.7 % (42.0-52.0); HEMOGLOBIN 13.5 g/dl (13.5-17.5); LYMPH # 1.2 10^3/uL (1.5-5.0); LYMPH % 15.3 % (24.0-44.0); MEAN CORPUSCULAR HEMOGLOBIN 24.2 pg (27.0-33.0); MEAN CORPUSCULAR HGB CONC 30.9 g/dl (32.0-36.5); MEAN CORPUSCULAR VOLUME 78.3 fl (80.0-96.0); MONO # 0.5 10^3/uL (0.0-0.8); MONO % 6.9 % (2.0-8.0); NEUTROPHILS # 5.5 10^3/uL (1.5-8.5); NEUTROPHILS % 72.5 % (36.0-66.0); PLATELET COUNT, AUTOMATED 171 10^3/uL (150-450); RED BLOOD COUNT 5.58 10^6/uL (4.30-6.10); WHITE BLOOD COUNT 7.6 10^3/uL (4.0-10.0)
[2023-11-24 07:04] LABS: BLOOD UREA NITROGEN 26 MG/DL (9-23); CALCIUM LEVEL 8.6 MG/DL (8.3-10.6); CARBON DIOXIDE LEVEL 27 MMOL/L (20-31); CHLORIDE LEVEL 108 MMOL/L (98-107); GLOMERULAR FILTRATION RATE > 60.0 (>49); GLUCOSE, FASTING 102 MG/DL (74-106); POTASSIUM SERUM 3.9 MMOL/L (3.5-5.1); SODIUM LEVEL 142 MMOL/L (136-145)
[2023-11-24] MEDS ORDERED: DIVALPROEX 250MG TAB PO SCH (09:00)
[2023-11-24 12:00] VITALS: BP 164/78; TEMP 98.7; O2SAT 94
[2023-11-24] MEDS: FLEET ENEMA PR SCH (14:50)
[2023-11-24] MEDS: BISACODYL 10MG SUPP PR SCH (15:16)
[2023-11-24 20:08] VITALS: BP 150/83; TEMP 98.1; O2SAT 93
[2023-11-25 04:37] VITALS: BP 161/90; TEMP 97.9; O2SAT 94
[2023-11-25 06:41] LABS: BASO % 0.5 % (0.0-1.0); EOS # 0.3 10^3/uL (0.0-0.5); EOS % 4.4 % (0.0-3.0); HEMATOCRIT 44.3 % (42.0-52.0); HEMOGLOBIN 13.6 g/dl (13.5-17.5); LYMPH # 0.8 10^3/uL (1.5-5.0); LYMPH % 11.9 % (24.0-44.0); MEAN CORPUSCULAR HEMOGLOBIN 23.8 pg (27.0-33.0); MEAN CORPUSCULAR HGB CONC 30.7 g/dl (32.0-36.5); MEAN CORPUSCULAR VOLUME 77.6 fl (80.0-96.0); MONO # 0.5 10^3/uL (0.0-0.8); MONO % 8.4 % (2.0-8.0); NEUTROPHILS # 4.8 10^3/uL (1.5-8.5); NEUTROPHILS % 74.5 % (36.0-66.0); PLATELET COUNT, AUTOMATED 173 10^3/uL (150-450); RED BLOOD COUNT 5.71 10^6/uL (4.30-6.10); WHITE BLOOD COUNT 6.4 10^3/uL (4.0-10.0)
[2023-11-25 06:52] LABS: BLOOD UREA NITROGEN 25 MG/DL (9-23); CALCIUM LEVEL 8.7 MG/DL (8.3-10.6); CARBON DIOXIDE LEVEL 24 MMOL/L (20-31); CHLORIDE LEVEL 110 MMOL/L (98-107); CREATININE FOR GFR 0.93 MG/DL (0.70-1.30); GLOMERULAR FILTRATION RATE > 60.0 (>49); GLUCOSE, FASTING 105 MG/DL (74-106); POTASSIUM SERUM 3.6 MMOL/L (3.5-5.1); SODIUM LEVEL 142 MMOL/L (136-145)
[2023-11-25] MEDS: ONDANSETRON 4MG 2ML VIAL IV PRN (07:05)
[2023-11-25 12:00] VITALS: BP 160/90; TEMP 97.7; O2SAT 95
[2023-11-25 20:24] VITALS: BP 162/91; TEMP 98.1; O2SAT 97
[2023-11-26 04:00] VITALS: BP 157/85; TEMP 97.7; O2SAT 96
[2023-11-26 07:15] LABS: BASO % 0.6 % (0.0-1.0); EOS # 0.3 10^3/uL (0.0-0.5); EOS % 5.2 % (0.0-3.0); HEMATOCRIT 44.7 % (42.0-52.0); HEMOGLOBIN 13.5 g/dl (13.5-17.5); LYMPH # 0.9 10^3/uL (1.5-5.0); LYMPH % 17.9 % (24.0-44.0); MEAN CORPUSCULAR HEMOGLOBIN 23.6 pg (27.0-33.0); MEAN CORPUSCULAR HGB CONC 30.2 g/dl (32.0-36.5); MEAN CORPUSCULAR VOLUME 78.3 fl (80.0-96.0); MONO # 0.6 10^3/uL (0.0-0.8); MONO % 11.9 % (2.0-8.0); NEUTROPHILS # 3.3 10^3/uL (1.5-8.5); NEUTROPHILS % 63.8 % (36.0-66.0); PLATELET COUNT, AUTOMATED 177 10^3/uL (150-450); RED BLOOD COUNT 5.71 10^6/uL (4.30-6.10); WHITE BLOOD COUNT 5.2 10^3/uL (4.0-10.0)
[2023-11-26 07:40] LABS: BLOOD UREA NITROGEN 25 MG/DL (9-23); CALCIUM LEVEL 8.4 MG/DL (8.3-10.6); CARBON DIOXIDE LEVEL 25 MMOL/L (20-31); CHLORIDE LEVEL 112 MMOL/L (98-107); CREATININE FOR GFR 0.94 MG/DL (0.70-1.30); GLOMERULAR FILTRATION RATE > 60.0 (>49); GLUCOSE, FASTING 102 MG/DL (74-106); POTASSIUM SERUM 3.7 MMOL/L (3.5-5.1); SODIUM LEVEL 145 MMOL/L (136-145)
[2023-11-26] MEDS: MAGNESIUM CITRATE 300ML BTL PO ONE (10:38)
[2023-11-26 12:00] VITALS: BP 156/96; TEMP 97.9; O2SAT 95
[2023-11-26 21:33] VITALS: BP 147/90; TEMP 98.1; O2SAT 96
[2023-11-27] MEDS ORDERED: UNRESOLVED CLARIFICATION ENTRY XX SCH (00:01)
[2023-11-27] MEDS: PREPARATION H OINTMENT (HEMORRHOID) PR PRN (00:30)
[2023-11-27 05:50] VITALS: BP 143/79; TEMP 98.4; O2SAT 95
[2023-11-27 06:20] LABS: BASO % 0.5 % (0.0-1.0); EOS # 0.3 10^3/uL (0.0-0.5); HEMATOCRIT 42.4 % (42.0-52.0); HEMOGLOBIN 12.9 g/dl (13.5-17.5); LYMPH # 1.3 10^3/uL (1.5-5.0); LYMPH % 22.1 % (24.0-44.0); MEAN CORPUSCULAR HEMOGLOBIN 23.8 pg (27.0-33.0); MEAN CORPUSCULAR HGB CONC 30.4 g/dl (32.0-36.5); MEAN CORPUSCULAR VOLUME 78.2 fl (80.0-96.0); MONO # 0.7 10^3/uL (0.0-0.8); MONO % 12.9 % (2.0-8.0); NEUTROPHILS # 3.3 10^3/uL (1.5-8.5); NEUTROPHILS % 58.1 % (36.0-66.0); PLATELET COUNT, AUTOMATED 164 10^3/uL (150-450); RED BLOOD COUNT 5.42 10^6/uL (4.30-6.10); WHITE BLOOD COUNT 5.7 10^3/uL (4.0-10.0)
[2023-11-27 06:32] LABS: BLOOD UREA NITROGEN 28 MG/DL (9-23); CALCIUM LEVEL 8.3 MG/DL (8.3-10.6); CARBON DIOXIDE LEVEL 25 MMOL/L (20-31); CHLORIDE LEVEL 110 MMOL/L (98-107); CREATININE FOR GFR 0.99 MG/DL (0.70-1.30); GLOMERULAR FILTRATION RATE > 60.0 (>49); GLUCOSE, FASTING 93 MG/DL (74-106); POTASSIUM SERUM 3.6 MMOL/L (3.5-5.1); SODIUM LEVEL 141 MMOL/L (136-145)
[2023-11-27] MEDS: MAGNESIUM CITRATE 300ML BTL PO ONE (09:17)
[2023-11-27 12:00] VITALS: BP 144/79; TEMP 98; O2SAT 92
[2023-11-27 20:26] VITALS: BP 168/100; TEMP 97.9; O2SAT 93
[2023-11-27] MEDS: DIVALPROEX 250MG *ER* TAB PO SCH (20:33)
[2023-11-28 04:34] VITALS: BP 157/97; TEMP 97.9; O2SAT 93
[2023-11-28 05:51] LABS: BASO % 0.6 % (0.0-1.0); EOS # 0.4 10^3/uL (0.0-0.5); EOS % 7.9 % (0.0-3.0); HEMOGLOBIN 13.3 g/dl (13.5-17.5); LYMPH # 1.4 10^3/uL (1.5-5.0); LYMPH % 25.5 % (24.0-44.0); MEAN CORPUSCULAR HEMOGLOBIN 23.8 pg (27.0-33.0); MEAN CORPUSCULAR HGB CONC 30.2 g/dl (32.0-36.5); MEAN CORPUSCULAR VOLUME 78.7 fl (80.0-96.0); MONO # 0.6 10^3/uL (0.0-0.8); NEUTROPHILS # 2.9 10^3/uL (1.5-8.5); NEUTROPHILS % 54.8 % (36.0-66.0); PLATELET COUNT, AUTOMATED 161 10^3/uL (150-450); RED BLOOD COUNT 5.59 10^6/uL (4.30-6.10); WHITE BLOOD COUNT 5.3 10^3/uL (4.0-10.0)
[2023-11-28 06:14] LABS: BLOOD UREA NITROGEN 20 MG/DL (9-23); CALCIUM LEVEL 8.5 MG/DL (8.3-10.6); CARBON DIOXIDE LEVEL 26 MMOL/L (20-31); CHLORIDE LEVEL 107 MMOL/L (98-107); GLOMERULAR FILTRATION RATE > 60.0 (>49); GLUCOSE, FASTING 111 MG/DL (74-106); POTASSIUM SERUM 3.7 MMOL/L (3.5-5.1); SODIUM LEVEL 139 MMOL/L (136-145)
[2023-11-28] MEDS ORDERED: E-Z-PAQUE 96% w/w SUSP 176GM BTL As Ordered ONE (08:08)
[2023-11-28 12:00] VITALS: BP 184/107; TEMP 97.5; O2SAT 97
[2023-11-28 19:49] VITALS: BP 160/90; TEMP 97.7; O2SAT 95
[2023-11-29 04:39] VITALS: BP 129/75; TEMP 97.7; O2SAT 97
[2023-11-29 07:49] LABS: BASO % 0.3 % (0.0-1.0); EOS # 0.3 10^3/uL (0.0-0.5); EOS % 5.6 % (0.0-3.0); HEMATOCRIT 43.1 % (42.0-52.0); HEMOGLOBIN 13.4 g/dl (13.5-17.5); LYMPH # 1.2 10^3/uL (1.5-5.0); LYMPH % 20.5 % (24.0-44.0); MEAN CORPUSCULAR HGB CONC 31.1 g/dl (32.0-36.5); MEAN CORPUSCULAR VOLUME 77.1 fl (80.0-96.0); MONO # 0.8 10^3/uL (0.0-0.8); MONO % 12.7 % (2.0-8.0); NEUTROPHILS # 3.6 10^3/uL (1.5-8.5); NEUTROPHILS % 60.6 % (36.0-66.0); PLATELET COUNT, AUTOMATED 165 10^3/uL (150-450); RED BLOOD COUNT 5.59 10^6/uL (4.30-6.10); WHITE BLOOD COUNT 5.9 10^3/uL (4.0-10.0)
[2023-11-29] MEDS ORDERED: AMLO1TAB24 PO (08:01)
[2023-11-29] MEDS: PANTOPRAZOLE 40MG TAB (PROTONIX) PO SCH (08:15)
[2023-11-29 08:16] VITALS: BP 136/76
[2023-11-29 08:18] LABS: BLOOD UREA NITROGEN 24 MG/DL (9-23); CALCIUM LEVEL 8.5 MG/DL (8.3-10.6); CARBON DIOXIDE LEVEL 24 MMOL/L (20-31); CHLORIDE LEVEL 106 MMOL/L (98-107); CREATININE FOR GFR 0.95 MG/DL (0.70-1.30); GLOMERULAR FILTRATION RATE > 60.0 (>49); GLUCOSE, FASTING 113 MG/DL (74-106); POTASSIUM SERUM 3.6 MMOL/L (3.5-5.1); SODIUM LEVEL 138 MMOL/L (136-145)
== END 2023-11-29 10:55 | disposition home or self-care (01) | DRG 390 ==
LOC: M ED 10:23 → M ED INP 15:25 → M MS4PR 18:21 → M MS5PR 11-24 16:06
PROVIDERS: ADMIT Internal Medicine Nephrology; ATTEND Internal Medicine Nephrology
DX: K56.51 Intestinal adhesions [bands], with partial obstruction (principal); I12.9 Hypertensive chronic kidney disease with stage 1 through stage 4 chronic kidney disease, or unspecified chronic kidney disease; E11.22 Type 2 diabetes mellitus with diabetic chronic kidney disease; N18.30 Chronic kidney disease, stage 3 unspecified; F32.A Depression, unspecified; E78.5 Hyperlipidemia, unspecified; E66.9 Obesity, unspecified; G47.33 Obstructive sleep apnea (adult) (pediatric); M10.9 Gout, unspecified; I25.10 Atherosclerotic heart disease of native coronary artery without angina pectoris; G40.909 Epilepsy, unspecified, not intractable, without status epilepticus; N40.1 Benign prostatic hyperplasia with lower urinary tract symptoms; N32.81 Overactive bladder; K21.00 Gastro-esophageal reflux disease with esophagitis, without bleeding; N52.9 Male erectile dysfunction, unspecified; H40.9 Unspecified glaucoma; E11.40 Type 2 diabetes mellitus with diabetic neuropathy, unspecified; M50.321 Other cervical disc degeneration at C4-C5 level; K29.70 Gastritis, unspecified, without bleeding; I25.2 Old myocardial infarction; K57.90 Diverticulosis of intestine, part unspecified, without perforation or abscess without bleeding; M48.02 Spinal stenosis, cervical region; K56.41 Fecal impaction; G43.909 Migraine, unspecified, not intractable, without status migrainosus; Z79.82 Long term (current) use of aspirin; Z79.4 Long term (current) use of insulin; Z88.8 Allergy status to other drugs, medicaments and biological substances; Z79.899 Other long term (current) drug therapy; Z91.048 Other nonmedicinal substance allergy status; Z68.33 Body mass index [BMI] 33.0-33.9, adult

== ENCOUNTER 2023-12-04 13:16 | Observation (INO) | payer MEDICARE ==
[~2023-12-04] VITALS: Ht 185.4 cm; Wt 113.6 kg
[~2023-12-04 13:16] MED LIST changes: +IRBE150T27 PO; +VARE0.03
[2023-12-04 13:57] LABS: BASO % 0.5 % (0.0-1.0); EOS # 0.4 10^3/uL (0.0-0.5); EOS % 5.7 % (0.0-3.0); HEMATOCRIT 45.2 % (42.0-52.0); HEMOGLOBIN 13.9 g/dl (13.5-17.5); LYMPH # 1.8 10^3/uL (1.5-5.0); LYMPH % 23.6 % (24.0-44.0); MEAN CORPUSCULAR HEMOGLOBIN 24.4 pg (27.0-33.0); MEAN CORPUSCULAR HGB CONC 30.8 g/dl (32.0-36.5); MEAN CORPUSCULAR VOLUME 79.4 fl (80.0-96.0); MONO # 0.6 10^3/uL (0.0-0.8); MONO % 8.5 % (2.0-8.0); NEUTROPHILS # 4.5 10^3/uL (1.5-8.5); PLATELET COUNT, AUTOMATED 243 10^3/uL (150-450); RED BLOOD COUNT 5.69 10^6/uL (4.30-6.10); WHITE BLOOD COUNT 7.4 10^3/uL (4.0-10.0)
[2023-12-04 14:26] LABS: ALBUMIN 3.2 G/DL (3.2-5.2); BILIRUBIN,DIRECT 0.2 MG/DL (<0.4); BILIRUBIN,TOTAL 0.5 MG/DL (0.3-1.2); CALCIUM LEVEL 8.9 MG/DL (8.3-10.6); CREATININE FOR GFR 1.29 MG/DL (0.70-1.30); GLOMERULAR FILTRATION RATE 59.5 (>49); MAGNESIUM LEVEL 1.7 MG/DL (1.8-2.4); THYROID STIMULATING HORMONE 2.535 uIU/ML (0.55-4.78); TOTAL PROTEIN 6.3 G/DL (5.7-8.2)
[2023-12-04 14:28] LABS: FREE T4 0.95 NG/DL (0.89-1.76)
[2023-12-04] MEDS: NS 1,000 ML IV ONE (15:05)
[2023-12-04] MEDS ORDERED: ACETAMINOPHEN 325 MG TAB PO PRN (17:35)
[2023-12-04] MEDS ORDERED: GLUCAGON INJ 1MG VIAL SC PRN (18:45)
[2023-12-04] MEDS ORDERED: GLUCOSE 4 GM CHEW PO PRN (18:45)
[2023-12-04] MEDS ORDERED: DEXTROSE 50% 50ML SYRINGE IV PRN (18:45)
[2023-12-04 19:00] VITALS: BP 147/80
[2023-12-04 19:01] VITALS: BP_SYST 104; BP_SYST 116; BP_DIAS 56; BP_DIAS 61
[2023-12-04 20:00] VITALS: BP 147/80; O2SAT 98
[2023-12-04] MEDS ORDERED: REST0.05 OU (20:28)
[2023-12-04] MEDS ORDERED: HOME MED LIST COMPLETE! XX SCH (20:30)
[2023-12-04] MEDS: NS 1,000 ML IV SCH (20:45)
[2023-12-04] MEDS: INSULIN LISPRO (NovoLOG) PER UNIT SC SCH (21:00)
[2023-12-04] MEDS: LEVEMIR (INSULIN DETEMIR) 1 UNITS/0.01ML SC SCH (21:26)
[2023-12-04 21:57] VITALS: TEMP 97.1
[2023-12-04 23:43] VITALS: BP 118/68; TEMP 98.6; O2SAT 98
[2023-12-05] VITALS (8 sets, daily range): BP systolic 123–188; BP diastolic 68–102; TEMP 98.3–98.8; O2SAT 92–99
[2023-12-05 05:42] LABS: HEMATOCRIT 42.6 % (42.0-52.0); HEMOGLOBIN 13.2 g/dl (13.5-17.5); MEAN CORPUSCULAR HEMOGLOBIN 24.2 pg (27.0-33.0); MEAN CORPUSCULAR VOLUME 78.2 fl (80.0-96.0); PLATELET COUNT, AUTOMATED 180 10^3/uL (150-450); RED BLOOD COUNT 5.45 10^6/uL (4.30-6.10); WHITE BLOOD COUNT 6.8 10^3/uL (4.0-10.0)
[2023-12-05 06:10] LABS: ALKALINE PHOSPHATASE 105 U/L (46-116); ALT/SGPT 19 U/L (7.0-40); AST/SGOT < 8 U/L (<34); BILIRUBIN,TOTAL 0.5 MG/DL (0.3-1.2); BLOOD UREA NITROGEN 23 MG/DL (9-23); CALCIUM LEVEL 8.5 MG/DL (8.3-10.6); CARBON DIOXIDE LEVEL 31 MMOL/L (20-31); CHLORIDE LEVEL 106 MMOL/L (98-107); CREATININE FOR GFR 0.97 MG/DL (0.70-1.30); GLOMERULAR FILTRATION RATE > 60.0 (>49); GLUCOSE, FASTING 61 MG/DL (74-106); POTASSIUM SERUM 3.9 MMOL/L (3.5-5.1); SODIUM LEVEL 139 MMOL/L (136-145); TOTAL PROTEIN 5.9 G/DL (5.7-8.2)
[2023-12-05] MEDS ORDERED: NYSTATIN 100,000 UNITS/GM TOPICAL PWD 15GM TOP PRN (07:25)
[2023-12-05] MEDS ORDERED: AZELASTINE 137MCG NASAL SPY 30 ML (ASTELIN) PRN (07:25)
[2023-12-05] MEDS: INSULIN LISPRO (NovoLOG) PER UNIT SC SCH (07:30)
[2023-12-05 08:06] LABS: INR 1.07; PARTIAL THROMBOPLASTIN TIME 27.4 SECONDS (24.8-34.2); PROTHROMBIN TIME 13.6 SECONDS (12.5-14.5)
[2023-12-05] MEDS: TAMSULOSIN 0.4 MG CAP PO SCH (08:55)
[2023-12-05] MEDS: ENOXAPARIN 40MG/0.4ML SYRINGE (J1650 PER 10MG) SC SCH (08:55)
[2023-12-05] MEDS: allopurinoL 300 MG TAB PO SCH (08:55)
[2023-12-05] MEDS: GABAPENTIN 300 MG CAP PO SCH (08:55)
[2023-12-05] MEDS: PANTOPRAZOLE 40MG TAB (PROTONIX) PO SCH (08:55)
[2023-12-05] MEDS: ASPIRIN 81MG ENTERIC TABLET PO SCH (08:56)
[2023-12-05] MEDS: DIVALPROEX 250MG TAB PO SCH (08:56)
[2023-12-05] MEDS: FINASTERIDE 5MG TAB PO SCH (08:56)
[2023-12-05] MEDS: oxyBUTYnin *DITROPAN XL* 5 MG TABCR PO SCH (08:56)
[2023-12-05] MEDS: PARoxetine 20MG TABLET PO SCH (08:56)
[2023-12-05] MEDS: DULoxetine 30MG CAPSULE (CYMBALTA) PO SCH (08:56)
[2023-12-05] MEDS: amLODIPine 5 MG TAB PO ONE (14:49)
[2023-12-05] MEDS ORDERED: AMLO25TA PO (17:37)
[2023-12-05] MEDS ORDERED: LATANOPROST 0.005% OPHTH SOLN 2.5 ML OU SCH (21:00)
[2023-12-05] MEDS ORDERED: IRBESARTAN 150MG TAB PO SCH (21:00)
[2023-12-05] MEDS ORDERED: ATORVASTATIN 20 MG TAB PO SCH (21:00)
== END 2023-12-05 20:16 | disposition home or self-care (01) ==
LOC: M ED 13:16 → M ED INP 17:34 → M PCU 18:47
PROVIDERS: ADMIT Internal Medicine; ATTEND Internal Medicine
DX: I95.1 Orthostatic hypotension (principal); E11.22 Type 2 diabetes mellitus with diabetic chronic kidney disease; I12.9 Hypertensive chronic kidney disease with stage 1 through stage 4 chronic kidney disease, or unspecified chronic kidney disease; E78.5 Hyperlipidemia, unspecified; G47.33 Obstructive sleep apnea (adult) (pediatric); M10.9 Gout, unspecified; I25.10 Atherosclerotic heart disease of native coronary artery without angina pectoris; I25.2 Old myocardial infarction; N40.1 Benign prostatic hyperplasia with lower urinary tract symptoms; K21.9 Gastro-esophageal reflux disease without esophagitis; N18.30 Chronic kidney disease, stage 3 unspecified; G43.909 Migraine, unspecified, not intractable, without status migrainosus; H40.9 Unspecified glaucoma; M48.02 Spinal stenosis, cervical region; Z86.16 Personal history of COVID-19; Z90.49 Acquired absence of other specified parts of digestive tract; Z79.84 Long term (current) use of oral hypoglycemic drugs; Z79.82 Long term (current) use of aspirin; Z79.899 Other long term (current) drug therapy; Z88.8 Allergy status to other drugs, medicaments and biological substances; Z91.040 Latex allergy status; Z91.048 Other nonmedicinal substance allergy status; Z95.5 Presence of coronary angioplasty implant and graft
CPT/HCPCS: 36415; 70450; 71045; 72125; 80047; 80048; 80053; 80076; 81001; 83605; 83735; 83880; 84439; 84443; 85025; 85027; 85610; 85730; 87040; 93005; 93041; 93306; 94760; 96360; 96361; 96372; 97161; 97165; 99285; G0378; J1650; J1815

== ENCOUNTER 2024-02-01 12:17 | Day surgery (SDC) | payer MEDICARE ==
[~2024-02-01] VITALS: Ht 182.9 cm; Wt 112.1 kg
[~2024-02-01 12:17] MED LIST changes: +AMLO2.5T3 PO; +AMLO25TA PO; +DONE5TAB82 PO; +DULO1CAP6 PO; +MIDAZOLAM INJ 2MG/2ML VIAL As Ordered ONE; +NYST1POW3 TOP; -NYST1POW9 TOP; +REST0.05 OU; +fentaNYL 100 MCG/2 ML INJECTION As Ordered ONE
[2024-02-01] MEDS ORDERED: LIDOCAINE 2% 100MG/5ML SDV (FOR ANES.) As Ordered ONE (12:54)
[2024-02-01] MEDS ORDERED: propofoL 200 MG/20 ML VIAL As Ordered ONE (12:54)
[2024-02-01 13:09] VITALS: TEMP 97.5
[2024-02-01] MEDS: LIDOCAINE 3.5 % 1ML OPHTH TOPICAL GEL OU ONE (13:15)
[2024-02-01] MEDS: LIDOCAINE 2% W/EPINEPHRINE 20ML VIAL **PRES FREE As Ordered ONE (14:14)
[2024-02-01] MEDS: CIPROFLOXACIN 0.3% OPHTH OINTMENT As Ordered ONE (14:18)
[2024-02-01 14:25] VITALS: BP 152/91; O2SAT 95
== END 2024-02-01 15:02 | disposition home or self-care (01) ==
LOC: M SDC 12:17
PROVIDERS: ATTEND Ophthalmology
DX: H02.834 Dermatochalasis of left upper eyelid (principal); I25.10 Atherosclerotic heart disease of native coronary artery without angina pectoris; E11.9 Type 2 diabetes mellitus without complications; Z95.5 Presence of coronary angioplasty implant and graft; I10 Essential (primary) hypertension; G47.30 Sleep apnea, unspecified; Z91.048 Other nonmedicinal substance allergy status; Z91.040 Latex allergy status; Z88.8 Allergy status to other drugs, medicaments and biological substances; Z79.899 Other long term (current) drug therapy
CPT/HCPCS: 15822; 88300; J2250; J3010

== ENCOUNTER 2024-02-11 15:00 | Emergency (ER) | payer MEDICARE ==
[~2024-02-11] VITALS: Ht 182.9 cm; Wt 111.8 kg
[~2024-02-11 15:00] MED LIST changes: -MIDAZOLAM INJ 2MG/2ML VIAL As Ordered ONE; -fentaNYL 100 MCG/2 ML INJECTION As Ordered ONE
[2024-02-11 15:26] LABS: BASO % 0.4 % (0.0-1.0); EOS # 0.4 10^3/uL (0.0-0.5); EOS % 4.8 % (0.0-3.0); HEMATOCRIT 42.1 % (42.0-52.0); HEMOGLOBIN 13.2 g/dl (13.5-17.5); LYMPH # 1.6 10^3/uL (1.5-5.0); LYMPH % 20.5 % (24.0-44.0); MEAN CORPUSCULAR HGB CONC 31.4 g/dl (32.0-36.5); MEAN CORPUSCULAR VOLUME 79.7 fl (80.0-96.0); MONO # 0.7 10^3/uL (0.0-0.8); MONO % 8.6 % (2.0-8.0); NEUTROPHILS # 4.9 10^3/uL (1.5-8.5); NEUTROPHILS % 65.2 % (36.0-66.0); PLATELET COUNT, AUTOMATED 170 10^3/uL (150-450); RED BLOOD COUNT 5.28 10^6/uL (4.30-6.10); WHITE BLOOD COUNT 7.6 10^3/uL (4.0-10.0)
[2024-02-11 15:50] LABS: ALBUMIN 2.9 G/DL (3.2-5.2); ALKALINE PHOSPHATASE 90 U/L (40-129); ALT/SGPT 25 U/L (7.0-40); AST/SGOT 9 U/L (<34); BILIRUBIN,TOTAL 0.4 MG/DL (0.3-1.2); BLOOD UREA NITROGEN 33 MG/DL (9-23); CARBON DIOXIDE LEVEL 23 MMOL/L (20-31); CHLORIDE LEVEL 109 MMOL/L (98-107); CREATININE FOR GFR 1.14 MG/DL (0.70-1.30); GLOMERULAR FILTRATION RATE > 60.0 (>49); GLUCOSE, FASTING 84 MG/DL (74-106); POTASSIUM SERUM 3.9 MMOL/L (3.5-5.1); SODIUM LEVEL 144 MMOL/L (136-145); TOTAL PROTEIN 5.3 G/DL (5.7-8.2)
[2024-02-11 17:30] LABS: CK-MB VALUE MASS < 1.0 NG/ML (<3.6); ETHYL ALCOHOL (ETHANOL) < 0.003 % (0.000-0.010); MAGNESIUM LEVEL 1.8 MG/DL (1.8-2.4)
[2024-02-11] MEDS: NS (Normal Saline) 0.9% 1,000 ML IV ONE (17:31)
[2024-02-11 17:32] LABS: CPK CREATINE PHOSPHOKINASE 61 U/L (46-171); MB/CK RELATIVE INDEX 1.63 (< OR =4)
[2024-02-11 17:34] LABS: THYROID STIMULATING HORMONE 1.648 uIU/ML (0.55-4.78)
[2024-02-11 17:46] LABS: INR 0.97; PARTIAL THROMBOPLASTIN TIME 28.7 SECONDS (24.8-34.2); PROTHROMBIN TIME 13.2 SECONDS (12.5-14.5)
[2024-02-11 17:59] LABS: CK-MB VALUE MASS < 1.0 NG/ML (<3.6)
[2024-02-11 18:00] LABS: CPK CREATINE PHOSPHOKINASE 65 U/L (46-171); MB/CK RELATIVE INDEX 1.53 (< OR =4)
[2024-02-11] MEDS: BOOSTRIX VACCINE (TETANUS/DIPHTH/ACEL. PERTUSSIS) 0.5ML SYR IM ONE (18:29)
[2024-02-11] MEDS: ACETAMINOPHEN 500 MG TAB PO ONE (18:44)
[2024-02-11 19:04] VITALS: BP 109/59; TEMP 96.8; O2SAT 96
== END 2024-02-11 19:21 | disposition home or self-care (01) ==
LOC: M ED 15:00 → EDBD 15:00 → M ED 19:21
DX: E86.0 Dehydration (principal); R55 Syncope and collapse; I44.4 Left anterior fascicular block; I45.10 Unspecified right bundle-branch block; I45.81 Long QT syndrome; I25.2 Old myocardial infarction; I25.119 Atherosclerotic heart disease of native coronary artery with unspecified angina pectoris; E10.9 Type 1 diabetes mellitus without complications; I11.0 Hypertensive heart disease with heart failure; E78.5 Hyperlipidemia, unspecified; N40.0 Benign prostatic hyperplasia without lower urinary tract symptoms; K21.9 Gastro-esophageal reflux disease without esophagitis; G47.33 Obstructive sleep apnea (adult) (pediatric); N18.9 Chronic kidney disease, unspecified; F32.A Depression, unspecified; Z23 Encounter for immunization; Z88.8 Allergy status to other drugs, medicaments and biological substances; Z91.040 Latex allergy status; Z79.4 Long term (current) use of insulin; Z79.84 Long term (current) use of oral hypoglycemic drugs; Z79.899 Other long term (current) drug therapy

== ENCOUNTER → 2024-04-10 | Outpatient (CLI) | payer MEDICARE | LOC: M SLEEP 20:00 | PROVIDERS: ATTEND Physician Assistant | DX: G47.33 Obstructive sleep apnea (adult) (pediatric) (principal) ==

== ENCOUNTER → 2024-04-19 | Outpatient (CLI) | payer MEDICARE ==
[~2024-04-19] MED LIST changes: +DONE10TA90 PO
[2024-04-19 17:11] LABS: HEMATOCRIT 43.6 % (42.0-52.0); HEMOGLOBIN 13.8 g/dl (13.5-17.5); MEAN CORPUSCULAR HEMOGLOBIN 25.2 pg (27.0-33.0); MEAN CORPUSCULAR HGB CONC 31.7 g/dl (32.0-36.5); MEAN CORPUSCULAR VOLUME 79.6 fl (80.0-96.0); PLATELET COUNT, AUTOMATED 184 10^3/uL (150-450); RED BLOOD COUNT 5.48 10^6/uL (4.30-6.10); WHITE BLOOD COUNT 6.7 10^3/uL (4.0-10.0)
[2024-04-19 17:42] LABS: BLOOD UREA NITROGEN 23 MG/DL (9-23); CALCIUM LEVEL 8.5 MG/DL (8.3-10.6); CARBON DIOXIDE LEVEL 27 MMOL/L (20-31); CHLORIDE LEVEL 104 MMOL/L (98-107); GLOMERULAR FILTRATION RATE > 60.0 (>49); GLUCOSE, FASTING 190 MG/DL (74-106); SODIUM LEVEL 141 MMOL/L (136-145)
== END ==
LOC: M RAD 15:43
PROVIDERS: ATTEND Physician Assistant
DX: Z01.818 Encounter for other preprocedural examination (principal)

== ENCOUNTER → 2024-12-27 | Outpatient (CLI) | payer MEDICARE ==
[~2024-12-27] MED LIST changes: +AMOX875T2 PO; -FLOM0.4C39 PO; -IBUP-1022 PO; +IBUP600T42 PO; +KETO-204 PO; +TAMS-18 PO
== END ==
LOC: M RAD 14:35
PROVIDERS: ATTEND Physician Assistant
DX: Z87.442 Personal history of urinary calculi (principal)